=== PATIENT | female | born 1945 | race Caucasian/White ===

== ENCOUNTER → 2019-08-17 | Outpatient (CLI) | payer MEDICARE, OTHER ==
[~2019-08-17] MED LIST: INFLIXIMAB-DYYB 400 MG in SODIUM CHLORIDE 0.9% 250 ML IV NR; SODIUM CHLORIDE 0.9% 500 ML 500 ML in EMPTY BAG 1 BAG IV PRN
[2019-08-17 08:03] VITALS: RESP 16; TEMP 98.4
[2019-08-17 09:33] VITALS: BP 120/65; PULSE 67
== END | disposition home or self-care (01) ==
LOC: PROCWHC3 07:42
PROVIDERS: ATTEND Internal Medicine Gastroenterology
DX: K51.90 Ulcerative colitis, unspecified, without complications (principal)
CPT/HCPCS: 96413; 96415; Q5103

== ENCOUNTER 2019-10-18 17:48 | Inpatient (IN) | payer MEDICARE, OTHER ==
[~2019-10-18 17:48] MED LIST changes: -INFLIXIMAB-DYYB 400 MG in SODIUM CHLORIDE 0.9% 250 ML IV NR; +LACTATED RINGERS 1,000 ML IV ONE; -SODIUM CHLORIDE 0.9% 500 ML 500 ML in EMPTY BAG 1 BAG IV PRN
[2019-10-18] MEDS ORDERED: MORPHINE SULFATE 4 MG/ML SYRINGE IV STA (18:08)
--- NOTE | 2019-10-18 18:10 | ED ---
General Adult HPI - General Chief complaint: Abdominal Pain Stated complaint: Abd Pain Time Seen by Provider: 10/18/19 17:50 Source: EMS Mode of arrival: EMS Limitations: no limitations - History of Present Illness Initial comments: Dictation was produced using [employer] dictation software. please excuse any grammatical, word or spelling errors. This patient was cared for during a federal and state declared state of emergency secondary to Covid 19 Chief Complaint: 73-year-old female with past medical history of colitis basal cell carcinoma presents with left lower quadrant abdominal pain 4 hours History of Present Illness: [id number] female since about 2 PM today she developed worsening left lower quadrant abdominal pain she does complain of chills. Denies any fevers. Denies nausea without vomiting. No diarrhea. She localizes the pain to the left lower quadrant with radiation to the back. The ROS documented in this emergency department record has been reviewed and confirmed by me. Those systems with pertinent positive or negative responses have been documented in the HPI. All other systems are other negative and/or noncontributory. PHYSICAL EXAM: General Impression: Alert and oriented x3, acute distress secondary to pain HEENT: Normocephalic atraumatic, extra-ocular movements intact, pupils equal and reactive to light bilaterally, mucous membranes moist. Cardiovascular: Heart regular rate and rhythm Chest: Able to complete full sentences, no retractions, no tachypnea Abdomen: abdomen soft, tenderness to palpation to the left lower quadrant non- distended, no organomegaly Musculoskeletal: Pulses present and equal in all extremities, no peripheral edema Motor: no focal deficits noted Neurological: CN II-XII grossly intact, no focal motor or sensory deficits noted Skin: Intact with no visualized rashes Psych: Normal affect and mood ED course: 73-year-old female presents with left lower quadrant abdominal pain 4 hours. She reports the pain is severe. Abdomen evaluation obtained. No leukocytosis. CBC is unremarkable. Metabolic panel is within acceptable limits.As upon arrival are within acceptable limits. There is concern of diverticulitis. Computed tomography scan of the abdomen is and pelvis shows free intraperitoneal air. Discussed patient case with Dr. Matute who is rita ling to accept patients care for admission. Patient started on Zosyn. EKG interpretation: Ventricular rate 72, normal sinus rhythm, IA interval 134, QRS 106, QTC 400. No IA prolongation, no QTC prolongation, ST depressions in V4 to V6. No old EKG for comparison Overall, this EKG is nonspecific - Related Data Home Medications Medication Instructions Recorded Confirmed Anastrozole [Arimidex] 1 mg PO DAILY 08/17/19 10/18/19 Celecoxib [CeleBREX] 200 mg PO DAILY 08/17/19 10/18/19 Dicyclomine [Bentyl] 20 mg PO QID PRN 08/17/19 10/18/19 Folic Acid 1 mg PO DAILY 08/17/19 10/18/19 Gabapentin [Neurontin] 100 mg PO DAILY 08/17/19 10/18/19 Temazepam [Restoril] 15 - 30 mg PO HS PRN 08/17/19 10/18/19 Acetaminophen Tab [Tylenol Tab] 1,000 mg PO Q8H PRN 10/18/19 10/18/19 Aspirin EC [Ecotrin Low Dose] 81 mg PO BID 10/18/19 10/18/19 Cholecalciferol [Vitamin D3 (25 2,000 unit PO DAILY 10/18/19 10/18/19 Mcg = 1000 Iu)] Cyanocobalamin [Vitamin B-12] 500 mcg PO DAILY 10/18/19 10/18/19 Ferrous Sulfate [Feosol] 325 mg PO DAILY 10/18/19 10/18/19 Ibuprofen [Motrin] 600 mg PO Q8HR PRN 10/18/19 10/18/19 Latanoprost/Pf [Latanoprost 0.005% 1 drop BOTH EYES HS 10/18/19 10/18/19 Eye Drop] Levothyroxine Sodium 125 mcg PO DAILY 10/18/19 10/18/19 Magnesium Oxide [Reyna] 500 mg PO DAILY 10/18/19 10/18/19 Potassium Gluconate 99 mg PO DAILY 10/18/19 10/18/19 Zinc 50 mg PO DAILY 10/18/19 10/18/19 azaTHIOprine [Imuran] 50 mg PO DAILY 10/18/19 10/18/19 oxyCODONE HCL [oxyCODONE HCL (IR)] 10 mg PO Q4H PRN 10/18/19 10/18/19 Allergies Allergy/AdvReac Type Severity Reaction Status Date / Time vancomycin Allergy Rash/Hives Verified 10/18/19 18:27 Review of Systems ROS Statement: Those systems with pertinent positive or pertinent negative responses have been documented in the HPI. ROS Other: All systems not noted in ROS Statement are negative. Past Medical History Past Medical History: Cancer Additional Past Medical History / Comment(s): Basal Cell Carcinoma (left side chest), Squamous Cell CA (right side of chest). Skin CA on nose, left shoulder left side of head and right shoulder. Bladder suspension. colitis, breast CA, History of Any Multi-Drug Resistant Organisms: None Reported Past Surgical History: Cholecystectomy, Orthopedic Surgery Past Psychological History: No Psychological Hx Reported Smoking Status: Former smoker Past Alcohol Use History: Occasional Past Drug Use History: None Reported General Exam Limitations: no limitations Course Vital Signs 10/18/19 10/18/19 17:53 18:56 Temperature 99.8 F H Pulse Rate 74 71 Respiratory 16 16 Rate Blood Pressure 120/85 127/67 O2 Sat by Pulse 97 96 Oximetry Medical Decision Making - Lab Data Result diagrams: 10/18/19 18:50 10/18/19 18:50 Lab Results 10/18/19 10/18/19 Range/Units 18:50 18:50 WBC 8.3 (3.8-10.6) k/uL RBC 3.88 (3.80-5.40) m/uL Hgb 12.5 (11.4-16.0) gm/dL Hct 39.0 (34.0-46.0) % MCV 100.5 H (80.0-100.0) fL MCH 32.1 (25.0-35.0) pg MCHC 31.9 (31.0-37.0) g/dL RDW 13.5 (11.5-15.5) % Plt Count 178 (150-450) k/uL Neutrophils % 93 % Lymphocytes % 2 % Monocytes % 3 % Eosinophils % 2 % Basophils % 0 % Neutrophils # 7.7 (1.3-7.7) k/uL Lymphocytes # 0.2 L (1.0-4.8) k/uL Monocytes # 0.2 (0-1.0) k/uL Eosinophils # 0.2 (0-0.7) k/uL Basophils # 0.0 (0-0.2) k/uL Sodium 135 L (137-145) mmol/L Potassium 4.0 (3.5-5.1) mmol/L Chloride 106 (98-107) mmol/L Carbon Dioxide 25 (22-30) mmol/L Anion Gap 4 mmol/L BUN 16 (7-17) mg/dL Creatinine 0.55 (0.52-1.04) mg/dL Est GFR (CKD-EPI)AfAm >90 (>60 ml/min/1.73 sqM) Est GFR (CKD-EPI)NonAf >90 (>60 ml/min/1.73 sqM) Glucose 104 H (74-99) mg/dL Calcium 8.4 (8.4-10.2) mg/dL Total Bilirubin 1.2 (0.2-1.3) mg/dL AST 75 H (14-36) U/L ALT 25 (4-34) U/L Alkaline Phosphatase 76 (38-126) U/L Total Protein 6.2 L (6.3-8.2) g/dL Albumin 3.5 (3.5-5.0) g/dL Lipase 45 (23-300) U/L Disposition Clinical Impression: Pneumoperitoneum Disposition: ADMITTED IP TO THIS HOSP Condition: Critical Is patient prescribed a controlled substance at d/c from ED?: No Referrals: Aliya Bal DO [Primary Care Provider] - 1-2 days Decision Time: 20:07
[2019-10-18 19:04] LABS: Basophils % (A) 0 %; Eosinophils # (A) 0.2 k/uL (0-0.7); Eosinophils % (A) 2 %; HGB 12.5 gm/dL (11.4-16.0); Lymphocytes # (A) 0.2 k/uL (1.0-4.8); Lymphocytes % (A) 2 %; MCH 32.1 pg (25.0-35.0); MCHC 31.9 g/dL (31.0-37.0); MCV 100.5 fL (80.0-100.0); Monocytes # (A) 0.2 k/uL (0-1.0); Monocytes % (A) 3 %; Neutrophils # (A) 7.7 k/uL (1.3-7.7); Neutrophils % (A) 93 %; Platelet Count 178 k/uL (150-450); RBC 3.88 m/uL (3.80-5.40); RDW 13.5 % (11.5-15.5); WBC 8.3 k/uL (3.8-10.6)
[2019-10-18 19:12] LABS: ALT 25 U/L (4-34); AST 75 U/L (14-36); African American GFR (CKD) >90 (>60 ml/min/1.73 sqM); Albumin 3.5 g/dL (3.5-5.0); Alkaline Phosphatase 76 U/L (38-126); Anion Gap 4 mmol/L; Blood Urea Nitrogen 16 mg/dL (7-17); Calcium 8.4 mg/dL (8.4-10.2); Carbon Dioxide 25 mmol/L (22-30); Chloride 106 mmol/L (98-107); Glucose 104 mg/dL (74-99); Non-African American GFR(CKD) >90 (>60 ml/min/1.73 sqM); Sodium 135 mmol/L (137-145); Total Bilirubin 1.2 mg/dL (0.2-1.3); Total Protein 6.2 g/dL (6.3-8.2)
[2019-10-18] MEDS ORDERED: ONDANSETRON 4 MG/2 ML VIAL IVP PRN (19:59)
[2019-10-18] MEDS ORDERED: HYDROmorphone 1 MG/ML 1 ML SYRINGE IVP STA (19:59)
[2019-10-18] MEDS ORDERED: PIPERACILLIN-TAZOBACTAM 3.375 GM in SODIUM CHLORIDE 0.9% 100 ML IVPB STA (19:59)
[2019-10-18] MEDS ORDERED: NALOXONE 0.4 MG/ML 1 ML VIAL IV PRN (19:59)
--- NOTE | 2019-10-18 20:01 | CT ---
EXAMINATION TYPE: CT abdomen pelvis w con DATE OF EXAM: 10/18/2019 COMPARISON: None HISTORY: abdominal/flank pain CT DLP: 1426.7 mGycm Automated exposure control for dose reduction was used. CONTRAST: Performed with IV Contrast, patient injected with 100 mL of Isovue 300. There is minimal subsegmental atelectasis at the lung bases. Heart is slightly enlarged. There is no pericardial effusion. There is no pleural effusion. There is moderate pneumoperitoneum with air anter ior to the liver. Stomach is intact. There are clips from cholecystectomy. There are bubbles around t he spleen. Spleen is intact. There is no pancreatic mass. There is no adrenal mass. Kidneys have normal size. There is no hydronephrosis. Ureters are not dilat ed. There is no retroperitoneal adenopathy. Abdominal aorta is atheromatous. There is free air around the sigmoid colon. There are multiple sigmoid diverticula. Bladder distends smoothly. There is no fr ee fluid in the pelvis. There is no inguinal hernia. There is metal artifact from bilateral hip prost hesis. The bony pelvis is intact. Lumbar spine is intact. There is multilevel lumbar spondylotic torres ges. There is retained fecal material in the large bowel. There is no evidence of thickened appendix. Appe ndix not seen with certainty. IMPRESSION: Large pneumoperitoneum. There is more air collection seen around the sigmoid colon. This could relate to ruptured diverticulum. I see no fat stranding to suggest diverticulitis. There are numerous sigmo id diverticula. Appendix not seen. No sign of thickened appendix. Minimal subsegmental atelectasis at the right lung base. Exam was discussed with Dr. Jett at 8:00 PM.
[2019-10-18] MEDS: SODIUM CHLORIDE 0.9% 1,000 ML IV SCH (21:03)
--- NOTE | 2019-10-18 21:48 | P.GSHP ---
History of Present Illness H&P Date: 10/18/19 CHIEF COMPLAINT: Pneumoperitoneum HISTORY OF PRESENT ILLNESS: The patient is a 73 year old female who recently underwent uneventful partial knee arthroplasty less than 5 days ago who developed acute onset abdominal pain generalized at 2 PM today, 7 hours ago. Her last meal was 12 noon, 10 hours ago. She denies any previous events. She is pre-existing history of ulcerative colitis where most of her medical care is outside of the [facility] system. Her last colonoscopy was 2 years ago for which she is due for her next colonoscopy 2 weeks from now. She denies any pre- existing cardiac disease such as chest pain or coronary artery disease requiring angioplasty. No recent reports of dyspnea or COPD. Secondary to severity of her abdominal pain, she presented to the emergency room. CT of the abdomen and pelvis is consistent with pneumoperitoneum hence for admission. PAST MEDICAL HISTORY: See list and reviewed for ulcerative colitis PAST SURGICAL HISTORY: See list and reviewed for cholecystectomy multiple colonoscopies MEDICATIONS: See list and reviewed includes Imuran ALLERGIES: See list and reviewed SOCIAL HISTORY: See list and reviewed FAMILY HISTORY: See list and reviewed REVIEW OF ORGAN SYSTEMS: CONSTITUTIONAL: No fevers or chills. EYES: Wears glasses. Has glaucoma. HEENT: No difficulties with hearing. No nosebleeds. No difficulty swallowing. RESPIRATORY: Denies pneumonia. Denies any troubles with breathing or dyspnea on exertion. CARDIOVASCULAR: Denies any chest pain, palpitations, or recent heart attacks. GASTROINTESTINAL: Denies fatty food intolerance. Has change in bowel habits and gas bloat. Has ulcerative colitis. GENITOURINARY: Denies any blood in urine or increased urinary frequency. NEUROLOGICAL: Has numbness or tingling along the distal extremities. No seizure disorders or headaches. Has chronic pain. MUSCULOSKELETAL: Intermittent back pain, stiffness or joint arthritis. Recent partial arthroplasty of the knee SKIN: Past skin cancer. PSYCHIATRIC: Denies current depression or suicidal thoughts. ENDOCRINE: Has thyroid disorders. Denies any blood sugar glucose intolerance. HEME/LYMPHATIC: Denies any lumps and bumps around the neck. No recent deep venous thrombosis. ALLERGY/IMMUNOLOGY: No immunoglobulin therapy. No immune deficiencies. Currently on Imuran. BREAST: History of breast cancer PHYSICAL EXAM: VITALS: Reviewed CONSTITUTIONAL: Well developed and in no acute distress. EYES: Conjuctivae without sclera icterus. Pupils are equally round and reactive to light. Extraocular movements grossly intact. HEAD, EARS, NOSE, THROAT: Moist buccal mucosa. Head is atraumatic, normocephalic. Hears conversational speech. No nasal drainage. NECK: Supple. No JV distention. No thyroidomegaly. RESPIRATORY: Non-labored respirations and equal bilateral excursions. No gross wheezes. CARDIOVASCULAR: Palpable 2+ radial pulses. ABDOMEN: Soft. Diffusely tender without guarding or rigidity. MUSCULOSKELETAL: Nail and fingers with good capillary refill. SKIN: Warm and well perfused with good skin turgor. NEUROLOGIC: Cranial nerves II through XII grossly intact. Sensation upper and extremities intact. No focal or lateralizing signs. PSYCH: Appropriate affect. Alert and oriented to person, place and time. D isplays appropriate insight. CLINCAL LABS: Reviewed. WBC normal 8.3 with 93% neutrophils. Creatinine 0.55, normal. AST elevated 75 IMAGING: Independently reviewed CT of the abdomen pelvis with diffuse free air throughout the upper abdomen and mesentery of the colon. Features of diverticulosis identified of the sigmoid colon. This is my independent interpretation RADIOLOGY: Report reviewed the CT of the abdomen and pelvis confirms large pneumoperitoneum and sigmoid colon without evidence of diverticulitis EKG: Reviewed with questionable lateral wall ischemia ASSESSMENT: 1. Pneumoperitoneum for perforated large bowel, diverticulosis. 2. Present on admission ulcerative colitis 3. Chronic pain syndrome 4. History of skin cancer breast cancer 5. Status post recent partial knee arthroplasty 6. Pre-existing immunosuppression PLAN: 1. On exam, she has diffuse abdominal tenderness with perforated viscus, exploratory laparotomy with descending colostomy creation was reviewed. She is at elevated risk for complications due to emergency surgery and pre-existing ulcerative colitis. Placement of drains also described. Recovery the intensive care unit was described. Anticipated hospitalization beyond 7-10 days also reviewed. 2. Broad-spectrum antibiotics 3. DVT prophylaxis 4. Pulmonary toilet 5. Patient also at elevated risk for cardiac morbidity with recent general anesthetic within 5 days of recent arthroplasty Past Medical History Past Medical History: Cancer Additional Past Medical History / Comment(s): Basal Cell Carcinoma (left side chest), Squamous Cell CA (right side of chest). Skin CA on nose, left shoulder left side of head and right shoulder. Bladder suspension. colitis, breast CA, History of Any Multi-Drug Resistant Organisms: None Reported Past Surgical History: Cholecystectomy, Orthopedic Surgery Past Psychological History: No Psychological Hx Reported Smoking Status: Former smoker Past Alcohol Use History: Occasional Past Drug Use History: None Reported Medications and Allergies Home Medications Medication Instructions Recorded Confirmed Type Anastrozole [Arimidex] 1 mg PO DAILY 08/17/19 10/18/19 History Celecoxib [CeleBREX] 200 mg PO DAILY 08/17/19 10/18/19 History Dicyclomine [Bentyl] 20 mg PO QID PRN 08/17/19 10/18/19 History Folic Acid 1 mg PO DAILY 08/17/19 10/18/19 History Gabapentin [Neurontin] 100 mg PO DAILY 08/17/19 10/18/19 History Temazepam [Restoril] 15 - 30 mg PO HS PRN 08/17/19 10/18/19 History Acetaminophen Tab [Tylenol Tab] 1,000 mg PO Q8H PRN 10/18/19 10/18/19 History Aspirin EC [Ecotrin Low Dose] 81 mg PO BID 10/18/19 10/18/19 History Cholecalciferol [Vitamin D3 (25 2,000 unit PO DAILY 10/18/19 10/18/19 History Mcg = 1000 Iu)] Cyanocobalamin [Vitamin B-12] 500 mcg PO DAILY 10/18/19 10/18/19 History Ferrous Sulfate [Feosol] 325 mg PO DAILY 10/18/19 10/18/19 History Ibuprofen [Motrin] 600 mg PO Q8HR PRN 10/18/19 10/18/19 History Latanoprost/Pf [Latanoprost 0.005% 1 drop BOTH EYES HS 10/18/19 10/18/19 History Eye Drop] Levothyroxine Sodium 125 mcg PO DAILY 10/18/19 10/18/19 History Magnesium Oxide [Reyna] 500 mg PO DAILY 10/18/19 10/18/19 History Potassium Gluconate 99 mg PO DAILY 10/18/19 10/18/19 History Zinc 50 mg PO DAILY 10/18/19 10/18/19 History azaTHIOprine [Imuran] 50 mg PO DAILY 10/18/19 10/18/19 History oxyCODONE HCL [oxyCODONE HCL (IR)] 10 mg PO Q4H PRN 10/18/19 10/18/19 History Allergies Allergy/AdvReac Type Severity Reaction Status Date / Time vancomycin Allergy Rash/Hives Verified 10/18/19 18:27 Surgical - Exam Vital Signs Temp Pulse Resp BP Pulse Ox 99.8 F H 74 16 120/85 97 10/18/19 17:53 10/18/19 17:53 10/18/19 17:53 10/18/19 17:53 10/18/19 17:53 Results - Labs 10/18/19 18:50 10/18/19 18:50 Abnormal Lab Results - Last 24 Hours (Table) 10/18/19 10/18/19 Range/Units 18:50 18:50 MCV 100.5 H (80.0-100.0) fL Lymphocytes # 0.2 L (1.0-4.8) k/uL Sodium 135 L (137-145) mmol/L Glucose 104 H (74-99) mg/dL AST 75 H (14-36) U/L Total Protein 6.2 L (6.3-8.2) g/dL Diabetes panel 10/18/19 Range/Units 18:50 Sodium 135 L (137-145) mmol/L Potassium 4.0 (3.5-5.1) mmol/L Chloride 106 (98-107) mmol/L Carbon Dioxide 25 (22-30) mmol/L BUN 16 (7-17) mg/dL Creatinine 0.55 (0.52-1.04) mg/dL Glucose 104 H (74-99) mg/dL Calcium 8.4 (8.4-10.2) mg/dL AST 75 H (14-36) U/L ALT 25 (4-34) U/L Alkaline Phosphatase 76 (38-126) U/L Total Protein 6.2 L (6.3-8.2) g/dL Albumin 3.5 (3.5-5.0) g/dL Calcium panel 10/18/19 Range/Units 18:50 Calcium 8.4 (8.4-10.2) mg/dL Albumin 3.5 (3.5-5.0) g/dL Pituitary panel 10/18/19 Range/Units 18:50 Sodium 135 L (137-145) mmol/L Potassium 4.0 (3.5-5.1) mmol/L Chloride 106 (98-107) mmol/L Carbon Dioxide 25 (22-30) mmol/L BUN 16 (7-17) mg/dL Creatinine 0.55 (0.52-1.04) mg/dL Glucose 104 H (74-99) mg/dL Calcium 8.4 (8.4-10.2) mg/dL Adrenal panel 10/18/19 Range/Units 18:50 Sodium 135 L (137-145) mmol/L Potassium 4.0 (3.5-5.1) mmol/L Chloride 106 (98-107) mmol/L Carbon Dioxide 25 (22-30) mmol/L BUN 16 (7-17) mg/dL Creatinine 0.55 (0.52-1.04) mg/dL Glucose 104 H (74-99) mg/dL Calcium 8.4 (8.4-10.2) mg/dL Total Bilirubin 1.2 (0.2-1.3) mg/dL AST 75 H (14-36) U/L ALT 25 (4-34) U/L Alkaline Phosphatase 76 (38-126) U/L Total Protein 6.2 L (6.3-8.2) g/dL Albumin 3.5 (3.5-5.0) g/dL Assessment and Plan (1) Ulcerative colitis Current Visit: Yes Status: Acute Code(s): K51.90 - ULCERATIVE COLITIS, UNSPECIFIED, WITHOUT COMPLICATIONS SNOMED Code(s): 43906418 (2) History of breast cancer Current Visit: Yes Status: Acute Code(s): Z85.3 - PERSONAL HISTORY OF MALIGNANT NEOPLASM OF BREAST SNOMED Code(s): 130888417 (3) History of skin cancer Current Visit: Yes Status: Acute Code(s): Z85.828 - PERSONAL HISTORY OF OTHER MALIGNANT NEOPLASM OF SKIN SNOMED Code(s): 335759443 (4) Hypothyroidism Current Visit: Yes Status: Acute Code(s): E03.9 - HYPOTHYROIDISM, UNSPECIFIED SNOMED Code(s): 70616722 (5) Abnormal EKG Current Visit: Yes Status: Acute Code(s): R94.31 - ABNORMAL ELECTROCARD IOGRAM [ECG] [EKG] SNOMED Code(s): 616609146 (6) Sigmoid diverticulosis Current Visit: Yes Status: Acute Code(s): K57.30 - DVRTCLOS OF LG INT W/O PERFORATION OR ABSCESS W/O BLEEDING SNOMED Code(s): 069348767 (7) Chronic pain syndrome Current Visit: Yes Status: Acute Code(s): G89.4 - CHRONIC PAIN SYNDROME SNOMED Code(s): 301742766 (8) Pneumoperitoneum Current Visit: Yes Status: Acute Code(s): K66.8 - OTHER SPECIFIED DISORDERS OF PERITONEUM SNOMED Code(s): 57627219
[2019-10-18] MEDS ORDERED: SODIUM CHLORIDE 0.9% 1,000 ML IV ONE ×2 (21:49→22:21)
[2019-10-18] MEDS ORDERED: HEPARIN SODIUM,PORCINE 5,000 UNIT/ML 1 ML VIAL SQ STA (21:51)
[2019-10-18] MEDS ORDERED: ACETAMINOPHEN IV (For NPO) 1,000 MG in EMPTY BAG 1 BAG IVPB ONE (22:00)
[2019-10-18] MEDS ORDERED: ROCURONIUM BROMIDE 10 MG/ML 5 ML VIAL IV ONE (22:22)
[2019-10-18] MEDS ORDERED: GLYCOPYRROLATE 0.2 MG/ML 2 ML VIAL ONE (22:22)
[2019-10-18] MEDS ORDERED: MIDAZOLAM 2 MG/2 ML VIAL ONE (22:22)
[2019-10-18] MEDS ORDERED: SUCCINYLCHOLINE CHLORIDE 100 MG/5 ML SYR IV ONE (22:22)
[2019-10-18] MEDS ORDERED: fentaNYL (PF) 50 MCG/ML 2 ML AMP ONE (22:22)
[2019-10-18] MEDS ORDERED: PROPOFOL 10 MG/ML 20 ML VIAL IV ONE (22:22)
[2019-10-18] MEDS ORDERED: PHENYLEPHRINE-0.9% NACL SYG 1 MG/10 ML SYRINGE ONE (22:22)
[2019-10-18] MEDS ORDERED: HYDROmorphone (PF) 1 MG/ML ONE (22:22)
[2019-10-18] MEDS ORDERED: NEOSTIGMINE 1 MG/ML 10 ML VIAL ONE (22:22)
[2019-10-18] MEDS ORDERED: LACTATED RINGERS 1,000 ML IV ONE (23:31)
[2019-10-19] MEDS: HYDROmorphone 1 MG/ML 1 ML SYRINGE IVP ONE ×4 (00:58→01:24)
--- NOTE | 2019-10-19 01:40 | P.OP ---
Date of Procedure: 10/19/19 Description of Procedure: SURGEON: SAMMIE YOUSIF MD PREOPERATIVE DIAGNOSES: 1. Pneumoperitoneum for perforated large bowel, diverticulosis 2. Present on admission ulcerative colitis 3. Chronic pain syndrome 4. History of skin cancer breast cancer 5. Status post recent partial knee arthroplasty 6. Pre-existing immunosuppression POSTOPERATIVE DIAGNOSES: 1. Perforated sigmoid diverticulitis 2. Present on admission ulcerative colitis 3. Chronic pain syndrome 4. History of skin cancer breast cancer 5. Status post recent partial knee arthroplasty 6. Pre-existing immunosuppression OPERATION: 1. Exploratory laparotomy with sigmoid resection 2. Descending colostomy creation 3. Devitalized rectal stump creation 4. Nancy's procedure for perforated sigmoid colon 5. Peritoneal lavage for abdominal washout 3 L normal saline 6. Placement of incisional wound VAC system PREVENA, Simms system Anesthesia: GETA Estimated Blood Loss (ml): 50 Pathology: other (Sigmoid colon) Condition: stable Disposition: floor COMPLICATIONS: None. Operative Findings: 1. Perforated mid sigmoid colon, 1 cm perforation 2. Highly redundant sigmoid colon 3. Mid to distal sigmoid colon resected 4. Rectal stump tacked with 3-0 Prolene INDICATIONS: The patient is a 73-year-old female with pre-existing ulcerative colitis, immunosuppression, recent knee arthroplasty less than 5 days ago presents acutely with peritonitis, abdominal pain. CT of the abdomen and pelvis confirmed free air. Emergent surgical intervention was described. All questions were answered and risks were reviewed with the patient and at bedside including but not limited to colostomy creation, colectomy, postoperative management intensive care unit, ventilatory management, drain placement, need for additional surgery, bleeding, infection, cardiac events. Informed consent was obtained. DESCRIPTION: Patient was brought to the operating room and placed in supine position whereby general induction was performed. Abdomen had been prepped and draped in the standard sterile fashion with placement of Banegas catheter. Ioban draping was also placed to minimize any contamination to the skin. Next, using #10 blade, the abdomen was entered along the midline whereby an incision was made just above the umbilicus down to the pubis. The abdomen was inspected whereby the small bowel was unremarkable. The mesentery was also unremarkable. Diverticulosis of the sigmoid colon was identified. The liver surface was palpated and unremarkable. No peritoneal studding was identified. Next, a buckwalter retractor was placed with exposure of the pelvis. The descending colon and sigmoid colon were mobilized along the medial and lateral attachments with care to avoid any injury to the ureters along the usual anatomical landmarks. Carefully the sigmoid colon was identified and mobilized. The sigmoid colon was moderately redundant with a contained perforation mid sigmoid colon, 1 cm perforation. The sigmoid colon was mobilized along the mesentery and the colon was divided for descending colon and maturation of a colostomy. Next, the rest of the colon was mobilized down to the rectum. The colon was divided just proximal using Covidien Endo BECKIE black lani and a contour stapler. The specimen was passed off. Hemostasis was checked with electro Bovie cautery including Enseal. The rectal stump was tagged using 3-0 Prolene. Next, attention was brought to the delivering and creating of the descending colostomy. A point along the abdominal wall and rectus muscle was selected for the colostomy. Skin defect of approximately quarter-size was placed using cautery. The fat of the skin was mobilized using a small rich. The rectus muscle was identified and scored with a cruciate scoring of electro- Bovie cautery. Next, using a muscle-splitting technique with a hemostat, the peritoneum was entered. The peritoneum was widened such that 2 fingerbreadths could easily pass for delivering and evaginating the descending portion of the colon through the skin. The abdominal cavity was copiously irrigated until completely clear and dried. The midline incision was closed using double-stranded 0 PDS. For the skin incision, the skin was cleansed with dilute hydrogen peroxide and stainless steel skin lani were applied. The midline incision was covered using PREVENA wound VAC and attention was brought to maturation of the colostomy. The staple edge was divided and removed. Next quadrant sutures at 12 o'clock, 3 o'clock, 6 o'clock, and 9 o'clock position was made using serosa, mucosal and dermal bites using 2-0 Vicryl. Running 3-0 Vicryl was placed in between all quadrants sutures to completely mature the ostomy. Hemostasis was checked. A Coloplast was then placed. At the end of the procedure, needle, sponge, and instrument count had been verified correct by network support technician. The patient's family was updated on level of care.
[2019-10-19] MEDS ORDERED: METOCLOPRAMIDE 5 MG/ML 2 ML VIAL IVP PRN (02:00)
[2019-10-19] MEDS: KETOROLAC 15 MG/ML 1 ML VIAL IVP SCH ×5 (02:27→23:08)
[2019-10-19 02:46] LABS: Appearance,Urine Clear (Clear); Bacteria,Urine Rare /hpf; Bilirubin,Urine Negative (Negative); Blood,Urine Moderate (Negative); Color,Urine Yellow; Glucose,Urine (UA) Negative (Negative); Ketones,Urine Negative (Negative); Leukocyte Esterase,Urine Trace (Negative); Mucus,Urine Rare /hpf; Nitrite,Urine Negative (Negative); PH, Urine 5.5 (5.0-8.0); Protein,Urine Trace (Negative); RBC,Urine 42 /hpf (0-5); Urobilinogen,Urine <2.0 mg/dL (<2.0); WBC,Urine 6 /hpf (0-5)
[2019-10-19 02:56] LABS: Specific Gravity,Urine >1.050 (1.001-1.035)
[2019-10-19] MEDS: PIPERACILLIN-TAZOBACTAM 3.375 GM in SODIUM CHLORIDE 0.9% 100 ML IVPB SCH ×3 (05:13→20:16)
[2019-10-19] MEDS: SODIUM CHLORIDE 0.9% 1,000 ML IV SCH ×2 (05:14→15:11)
[2019-10-19] MEDS: ENOXAPARIN 30 MG/0.3 ML SYRINGE SQ SCH (08:11)
[2019-10-19] MEDS: PANTOPRAZOLE 40 MG/10 ML VIAL IV SCH (08:11)
[2019-10-19] MEDS: HYDROmorphone 1 MG/ML 1 ML SYRINGE IVP PRN ×3 (08:40→21:08)
[2019-10-19] MEDS: ANASTROZOLE 1 MG TAB PO SCH (12:29)
[2019-10-19] MEDS: LEVOTHYROXINE 125 MCG TAB PO SCH (12:30)
--- NOTE | 2019-10-19 14:10 | P.PN ---
<Jazmyne Menon - Last Filed: 10/19/19 14:02> Subjective Progress Note Date: 10/19/19 CHIEF COMPLAINT: Pneumoperitoneum HISTORY OF PRESENT ILLNESS: he patient is a 73 year old female who recently underwent uneventful partial knee arthroplasty less than 5 days ago who developed acute onset abdominal pain. CT of the abdomen and pelvis is consistent with pneumoperitoneum. Patient is status post Exploratory laparotomy with descending colostomy creation, sigmoid colectomy, the flat lens rectum, Fermin's procedure. Abdominal washout 3 L normal saline and Placement of incisional wound VAC system for perforated sigmoid diverticulitis. Patient sitting up in bed. Denies abdominal pain. Denies any nausea or vomiting. She had a temp of 100.2 last night. Now she is currently afebrile. PHYSICAL EXAM: VITAL SIGNS: Reviewed GENERAL: Well-developed in no acute distress. HEENT: No sclera icterus. Extraocular movements grossly intact. Moist buccal mucosa. Head is atraumatic, normocephalic. Hears conversational speech. No nasal drainage. NECK: Supple without lymphadenopathy. CHEST: Non-labored respirations and equal bilateral excursions. CARDIOVASCULAR: Regular rate with regular rhythm. Palpable 2+ radial pulses. ABDOMEN: Soft. Nondistended. Nontender. His colostomy bag MUSCULOSKELETAL: No clubbing or cyanosis. NEUROLOGIC: No focal or lateralizing signs. Cranial nerves II through XII grossly intact. PSYCH: Appropriate affect. Alert and oriented to person, place and time. SKIN: Well perfused. Good skin turgor. ASSESSMENT: 1. Perforated sigmoid diverticulitis status post Exploratory laparotomy with descending colostomy creation, sigmoid colectomy, the flat lens rectum, Fermin's procedure. Abdominal washout and Placement of incisional wound VAC system 2. Present on admission ulcerative colitis 3. Chronic pain syndrome 4. History of skin cancer breast cancer 5. Status post recent partial knee arthroplasty 6. Pre-existing immunosuppression PLAN: - Continue Broad-spectrum antibiotics - DVT prophylaxis - Pulmonary toilet -Consult PT OT -Patient will require home care at discharge Physician Lead Supply Worker note has been reviewed by physician. Signing provider agrees with the documented findings, assessment, and plan of care. Objective - Vital Signs Vital signs: Vital Signs Temp 98.6 F 10/19/19 07:00 Pulse 76 10/19/19 07:00 Resp 16 10/19/19 07:00 BP 101/64 09/03/20 07:00 Pulse Ox 92 L 10/19/19 07:00 Intake & Output 10/18/19 10/19/19 10/19/19 18:59 06:59 18:59 Intake Total 1500 100 Output Total 100 Balance 1400 100 Weight 87.543 kg 87.543 kg Intake: IV 1500 Other 100 Output: Urine 100 Other: Voiding Method Indwelling Catheter - Labs CBC & Chem 7: 10/18/19 18:50 10/18/19 18:50 Labs: Abnormal Lab Results - Last 24 Hours (Table) 10/18/19 10/18/19 10/19/19 Range/Units 18:50 18:50 02:33 MCV 100.5 H (80.0-100.0) fL Lymphocytes # 0.2 L (1.0-4.8) k/uL Sodium 135 L (137-145) mmol/L Glucose 104 H (74-99) mg/dL AST 75 H (14-36) U/L Total Protein 6.2 L (6.3-8.2) g/dL Ur Specific [place] >1.050 H (1.001-1.035) Urine Protein Trace H (Negative) Urine Blood Moderate H (Negative) Ur Leukocyte Esterase Trace H (Negative) Urine RBC 42 H (0-5) /hpf Urine WBC 6 H (0-5) /hpf Urine Bacteria Rare H (None) /hpf Urine Mucus Rare H (None) /hpf <Natalie Matute - Last Filed: 11/01/19 21:49> Subjective Patient seen and evaluated as above. Please see corrected report. CHIEF COMPLAINT: Perforated diverticulitis HISTORY OF PRESENT ILLNESS: The patient is a 73-year-old female status post Fermin's procedure for perforated sigmoid diverticulitis. She reports her pain is controlled. She is concerned about her recent knee arthroplasty and physical therapy requirements. She is tolerating liquids. ROS: No reports of nausea and vomiting. No bowel movements. No new chest pain. PHYSICAL EXAM: VITAL SIGNS: Reviewed CONSTITUTIONAL: Well developed and in no acute distress. EYES: Conjuctivae without sclera icterus. Extraocular movements grossly intact. HEAD, EARS, NOSE, THROAT: Moist buccal mucosa. Head is atraumatic, normocephalic. Hears conversational speech. No nasal drainage. NECK: Supple. No thyroidomegaly. RESPIRATORY: Non-labored respirations and equal bilateral excursions. CARDIOVASCULAR: Palpable 2+ radial pulses. ABDOMEN: Incisional wound VAC system intact. No cellulitis or infection. Left descending colostomy without flatus MUSCULOSKELETAL: No gross deformity of the lower extremities noted. Recent left knee arthroplasty. SKIN: Good skin turgor. Well perfused. NEUROLOGIC: Cranial nerves II through XII grossly intact. No focal or later alizing signs. PSYCH: Appropriate affect. Alert and oriented to person, place and time. CLINICAL LABS: WBC on admission 8.5, normal. ASSESSMENT: 1. Perforated sigmoid diverticulitis, status post Nancy's procedure PLAN: 1. Will need colostomy education for a descending colostomy 2. Physical therapy assessment for recent left knee arthroplasty 3. Continue IV antibiotics for complicated perforated diverticulitis Objective - Vital Signs Vital signs: Vital Signs Temp 98.2 F 10/30/19 14:47 Pulse 67 10/30/19 14:47 Resp 17 10/30/19 14:47 BP 115/70 10/30/19 14:47 Pulse Ox 99 10/30/19 14:47 - Labs CBC & Chem 7: 10/28/19 06:37 10/28/19 06:37 Labs: Microbiology - Last 24 Hours (Table) 10/25/19 11:43 Gram Stain - Final Abdomen Wound Culture - Final Escherichia coli Assessment and Plan (1) Ulcerative colitis Status: Acute Code(s): K51.90 - ULCERATIVE COLITIS, UNSPECIFIED, WITHOUT COMPLICATIONS SNOMED Code(s): 07216063 (2) History of breast cancer Status: Acute Code(s): Z85.3 - PERSONAL HISTORY OF MALIGNANT NEOPLASM OF BREAST SNOMED Code(s): 470367002 (3) History of skin cancer Status: Acute Code(s): Z85.828 - PERSONAL HISTORY OF OTHER MALIGNANT NEOPLASM OF SKIN SNOMED Code(s): 349154427 (4) Hypothyroidism Status: Acute Code(s): E03.9 - HYPOTHYROIDISM, UNSPECIFIED SNOMED Code(s): 36971883 (5) Abnormal EKG Status: Acute Code(s): R94.31 - ABNORMAL ELECTROCARDIOGRAM [ECG] [EKG] SNOMED Code(s): 505387976 (6) Sigmoid diverticulosis Status: Acute Code(s): K57.30 - DVRTCLOS OF LG INT W/O PERFORATION OR ABSCESS W/O BLEEDING SNOMED Code(s): 337066140 (7) Chronic pain syndrome Status: Acute Code(s): G89.4 - CHRONIC PAIN SYNDROME SNOMED Code(s): 412501324 (8) Pneumoperitoneum Status: Acute Code(s): K66.8 - OTHER SPECIFIED DISORDERS OF PERITONEUM SNOMED Code(s): 18925324 (9) Perforation of sigmoid colon due to diverticulitis Status: Acute Code(s): K57.20 - DVTRCLI OF LG INT W PERFORATION AND ABSCESS W/O BLEEDING SNOMED Code(s): 6829432854405984
[2019-10-19] MEDS: LATANOPROST 0.005% OPHTH DROPS 2.5 ML BTL BOTH EYES SCH (21:08)
--- NOTE | 2019-10-19 21:42 | P.CONS ---
History of Present Illness - Reason for Consult Consult date: 10/19/19 Medical management - Chief Complaint Abdominal pain - History of Present Illness Patient is a 73-year-old female with a known history of basal cell carcinoma of the skin, breast cancer, osteoarthritis and recent history of left total knee arthroplasty about 5 days ago,. History of smoking presents to ER with the complaints of left lower quadrant abdominal pain started around 2 PM yesterday. Patient's pain is mainly left lower quadrant and sometimes radiating to the back. Denied any complaints of nausea or vomiting. No diarrhea. He does have chills. No fever. No complaints of chest pain or shortness of breath. CT of the abdomen pelvis done in the ER showed large pneumoperitoneum. There is more air collections seen around the sigmoid colon. This could relate to ruptured diverticulum. No fat stranding to suggest diverticulitis. There are numerous sigmoid diverticula. Appendix not seen. Minimal subsegmental atelectasis at the left lung base. EKG showed normal sinus rhythm. Patient underwent immediate expiratory laparotomy with sigmoid colectomy and colostomy. Laboratory pressure WBC 8.3, hemoglobin 12.5 and platelets 93 Sodium 135, potassium 4.0, AST 75, ALT is 25 and alk phos 76 Total bilirubin is 1.2 Lipase is 45 Urinalysis showed moderate blood and 42 RBCs and WBCs 6 Review of Systems Constitutional: Patient denies any fever or chills . No generalized weakness or weight loss. Abdomen: Patient does have abdominal pain. No associated nausea vomiting or diarrhea. Cardiovascular: Patient denies any chest pain or short of breath no palpitations. Respiratory: patient denied any cough is from production. No shortness of breath Neurologic: Patient denied any numbness or tingling headache. Musculoskeletal: Patient denies any complaints of joint swelling or deformity. Skin: Negative Psychiatric: Negative Endocrine: No heat or cold intolerance. No recent weight gain. Genitourinary: No dysuria or hematuria. All other 14 point ROS negative except the above Past Medical History Past Medical History: Cancer Additional Past Medical History / Comment(s): Basal Cell Carcinoma (left side chest), Squamous Cell CA (right side of chest). Skin CA on nose, left shoulder left side of head and right shoulder. Bladder suspension. colitis, breast CA, History of Any Multi-Drug Resistant Organisms: None Reported Past Surgical History: Cholecystectomy, Orthopedic Surgery Past Anesthesia/Blood Transfusion Reactions: No Reported Reaction Past Psychological History: No Psychological Hx Reported Smoking Status: Former smoker Past Alcohol Use History: Occasional Additional Past Alcohol Use History / Comment(s): Patient states she is a social drinker. Past Drug Use History: None Reported - Past Family History Father History Unknown: Yes Medications and Allergies Home Medications Medication Instructions Recorded Confirmed Type Anastrozole [Arimidex] 1 mg PO DAILY 08/17/19 10/18/19 History Celecoxib [CeleBREX] 200 mg PO DAILY 08/17/19 10/18/19 History Dicyclomine [Bentyl] 20 mg PO QID PRN 08/17/19 10/18/19 History Folic Acid 1 mg PO DAILY 08/17/19 10/18/19 History Gabapentin [Neurontin] 100 mg PO DAILY 08/17/19 10/18/19 History Temazepam [Restoril] 15 - 30 mg PO HS PRN 08/17/19 10/18/19 History Acetaminophen Tab [Tylenol Tab] 1,000 mg PO Q8H PRN 10/18/19 10/18/19 History Aspirin EC [Ecotrin Low Dose] 81 mg PO BID 10/18/19 10/18/19 History Cholecalciferol [Vitamin D3 (25 2,000 unit PO DAILY 10/18/19 10/18/19 History Mcg = 1000 Iu)] Cyanocobalamin [Vitamin B-12] 500 mcg PO DAILY 10/18/19 10/18/19 History Ferrous Sulfate [Feosol] 325 mg PO DAILY 10/18/19 10/18/19 History Ibuprofen [Motrin] 600 mg PO Q8HR PRN 10/18/19 10/18/19 History Latanoprost/Pf [Latanoprost 0.005% 1 drop BOTH EYES HS 10/18/19 10/18/19 History Eye Drop] Levothyroxine Sodium 125 mcg PO DAILY 10/18/19 10/18/19 History Magnesium Oxide [Reyna] 500 mg PO DAILY 10/18/19 10/18/19 History Potassium Gluconate 99 mg PO DAILY 10/18/19 10/18/19 History Zinc 50 mg PO DAILY 10/18/19 10/18/19 History azaTHIOprine [Imuran] 50 mg PO DAILY 10/18/19 10/18/19 History oxyCODONE HCL [oxyCODONE HCL (IR)] 10 mg PO Q4H PRN 10/18/19 10/18/19 History Allergies Allergy/AdvReac Type Severity Reaction Status Date / Time vancomycin Allergy Rash/Hives Verified 10/18/19 18:27 Physical Exam Vitals: Vital Signs Temp Pulse Pulse Pulse Resp BP BP 10/19/19 07:00 98.6 F 76 16 101/64 10/19/19 03:58 69 107/68 10/19/19 03:44 76 115/59 10/19/19 03:42 74 10/19/19 03:29 18 10/19/19 03:14 81 109/57 10/19/19 02:58 69 102/56 10/19/19 02:43 73 109/60 10/19/19 02:28 79 112/63 10/19/19 02:13 75 106/67 10/19/19 02:10 98.7 F 83 18 122/75 10/19/19 01:58 98.7 F 83 122/73 10/19/19 01:37 84 16 138/62 10/19/19 01:22 85 18 156/70 10/19/19 01:07 86 18 152/68 10/19/19 00:52 98.0 F 99 18 163/75 10/18/19 21:48 100.2 F H 95 17 102/62 10/18/19 20:28 99.8 F H 80 16 112/80 10/18/19 18:56 71 16 127/67 10/18/19 17:53 99.8 F H 74 16 120/85 Pulse Ox 10/19/19 07:00 92 L 10/19/19 03:58 97 10/19/19 03:44 97 10/19/19 03:42 89 L 10/19/19 03:29 10/19/19 03:14 96 10/19/19 02:58 10/19/19 02:43 95 10/19/19 02:28 94 L 10/19/19 02:13 90 L 10/19/19 02:10 95 10/19/19 01:58 96 10/19/19 01:37 98 10/19/19 01:22 96 10/19/19 01:07 96 10/19/19 00:52 99 10/18/19 21:48 95 10/18/19 20:28 97 10/18/19 18:56 96 10/18/19 17:53 97 Intake and Output 10/18/19 10/19/19 10/19/19 22:59 06:59 14:59 Intake Total 700 800 Output Total 100 Balance 700 700 Intake: IV 700 800 Output: Urine 100 Other: Voiding Method Indwelling Catheter Weight 87.543 kg 87.543 kg PHYSICAL EXAMINATION: Patient is lying in the bed comfortably, no acute distress, awake alert and oriented.. HEENT: Normocephalic. Neck is supple. Pupils reactive. Nostrils clear. Oral cavity is moist. Ears reveal no drainage. Neck reveals no JVD, carotid bruits, or thyromegaly. CHEST EXAMINATION: Trachea is central. Symmetrical expansion. Lung maxwell clear to auscultation and percussion. CARDIAC: Normal S1, S2 with no gallops. No murmurs ABDOMEN: Soft. Bowel sounds diminished. Surgical site is bandaged with wound VAC and colostomy bag in place. No abdominal bruits. Extremities: reveal no edema. No clubbing or cyanosis Neurologically awake, alert, oriented x3 with well-coordinated movements. No focal deficits noted Skin: No rash or skin lesions. Psychiatric: Coperative. Nonsuicidal Musculoskeletal: No joint swelling or deformity. Normal range of motion.Left knee surgical site is intact. Results CBC & Chem 7: 10/18/19 18:50 10/18/19 18:50 Labs: Abnormal Lab Results - Last 24 Hours (Table) 10/18/19 10/18/19 10/19/19 Range/Units 18:50 18:50 02:33 MCV 100.5 H (80.0-100.0) fL Lymphocytes # 0.2 L (1.0-4.8) k/uL Sodium 135 L (137-145) mmol/L Glucose 104 H (74-99) mg/dL AST 75 H (14-36) U/L Total Protein 6.2 L (6.3-8.2) g/dL Ur Specific [place] >1.050 H (1.001-1.035) Urine Protein Trace H (Negative) Urine Blood Moderate H (Negative) Ur Leukocyte Esterase Trace H (Negative) Urine RBC 42 H (0-5) /hpf Urine WBC 6 H (0-5) /hpf Urine Bacteria Rare H (None) /hpf Urine Mucus Rare H (None) /hpf Assessment and Plan Assessment: Large pneumoperitoneum due to Acute perforated sigmoid diverticulitis. Status post exporter laparotomy and colectomy with colostomy bag placement. Postoperative day 1. Abdominal washout and incisional wound VAC system placement. Ulcerative colitis currently on Imuran therapy. Hypothyroidism Chronic pain History of breast cancer History of basal cell carcinoma of the skin Recent left knee arthroplasty Obesity with BMI 31.2 DVT prophylaxis Plan: Patient is status post expiratory laparotomy and is currently placed on colostomy bag. Continue with antibiotic in the form of Zosyn. followup cx reports, Wound VAC is in placed. Patient was started on liquid diet and advance as tolerated. Encourage incentive spirometry. PT OT was consulted. Will continue to follow with you. Further recommendations based on the clinical course. Thank you for your consult. Time with Patient: Greater than 30
[2019-10-20] MEDS: SODIUM CHLORIDE 0.9% 1,000 ML IV SCH ×2 (00:29→07:42)
[2019-10-20] MEDS: KETOROLAC 15 MG/ML 1 ML VIAL IVP SCH ×4 (05:36→23:02)
[2019-10-20] MEDS: PIPERACILLIN-TAZOBACTAM 3.375 GM in SODIUM CHLORIDE 0.9% 100 ML IVPB SCH ×3 (05:36→20:06)
[2019-10-20] MEDS: LEVOTHYROXINE 125 MCG TAB PO SCH (05:36)
[2019-10-20] MEDS: ENOXAPARIN 30 MG/0.3 ML SYRINGE SQ SCH (07:42)
[2019-10-20] MEDS: PANTOPRAZOLE 40 MG/10 ML VIAL IV SCH (07:42)
[2019-10-20] MEDS: ANASTROZOLE 1 MG TAB PO SCH (07:42)
[2019-10-20 08:44] LABS: Basophils % (A) 0 %; Eosinophils # (A) 0.4 k/uL (0-0.7); Eosinophils % (A) 3 %; HCT 37.9 % (34.0-46.0); HGB 12.2 gm/dL (11.4-16.0); Lymphocytes # (A) 0.5 k/uL (1.0-4.8); Lymphocytes % (A) 3 %; MCH 33.2 pg (25.0-35.0); MCHC 32.3 g/dL (31.0-37.0); MCV 102.8 fL (80.0-100.0); Macrocytosis Slight; Mean Platelet Volume 8.4; Monocytes # (A) 0.4 k/uL (0-1.0); Monocytes % (A) 2 %; Neutrophils # (A) 14.2 k/uL (1.3-7.7); Neutrophils % (A) 91 %; Platelet Count 190 k/uL (150-450); RBC 3.69 m/uL (3.80-5.40); RDW 13.5 % (11.5-15.5); WBC 15.7 k/uL (3.8-10.6)
[2019-10-20 08:51] LABS: ALT 58 U/L (4-34); AST 71 U/L (14-36); African American GFR (CKD) >90 (>60 ml/min/1.73 sqM); Albumin 2.9 g/dL (3.5-5.0); Alkaline Phosphatase 115 U/L (38-126); Anion Gap 7 mmol/L; Blood Urea Nitrogen 13 mg/dL (7-17); Calcium 8.4 mg/dL (8.4-10.2); Carbon Dioxide 24 mmol/L (22-30); Chloride 104 mmol/L (98-107); Glucose 101 mg/dL (74-99); Non-African American GFR(CKD) 89 (>60 ml/min/1.73 sqM); Potassium 3.2 mmol/L (3.5-5.1); Sodium 135 mmol/L (137-145); Total Protein 5.6 g/dL (6.3-8.2)
[2019-10-20] MEDS: HYDROmorphone 1 MG/ML 1 ML SYRINGE IVP PRN (09:20)
[2019-10-20 10:59] VITALS: BMI 31.1
[2019-10-20] MEDS: POTASSIUM CHLORIDE ER 20 MEQ TAB.ER PO SCH ×2 (16:06→17:22)
--- NOTE | 2019-10-20 16:09 | P.PN ---
<CorinneJazmyne richmond - Last Filed: 10/20/19 16:05> Subjective Progress Note Date: 10/20/19 CHIEF COMPLAINT: Pneumoperitoneum HISTORY OF PRESENT ILLNESS: he patient is a 73 year old female who recently underwent uneventful partial knee arthroplasty less than 5 days ago who developed acute onset abdominal pain. CT of the abdomen and pelvis is consistent with pneumoperitoneum. Patient is status post Exploratory laparotomy with descending colostomy creation, sigmoid colectomy, the flat lens rectum, Fermin's procedure. Abdominal washout 3 L normal saline and Placement of incisional wound VAC system for perforated sigmoid diverticulitis. Patient sitting in bedside chair. Denies abdominal pain. Denies any nausea or vomiting. No stool through her colostomy. She is tolerating clear liquid diet. She is afebrile. WBC 15.7 hemoglobin 12.2 platelets 190 potassium 3.2 PHYSICAL EXAM: VITAL SIGNS: Reviewed GENERAL: Well-developed in no acute distress. HEENT: No sclera icterus. Extraocular movements grossly intact. Moist buccal mucosa. Head is atraumatic, normocephalic. Hears conversational speech. No nasal drainage. NECK: Supple without lymphadenopathy. CHEST: Non-labored respirations and equal bilateral excursions. CARDIOVASCULAR: Regular rate with regular rhythm. Palpable 2+ radial pulses. ABDOMEN: Soft. Nondistended. Nontender. His colostomy bag MUSCULOSKELETAL: No clubbing or cyanosis. NEUROLOGIC: No focal or lateralizing signs. Cranial nerves II through XII grossly intact. PSYCH: Appropriate affect. Alert and oriented to person, place and time. SKIN: Well perfused. Good skin turgor. ASSESSMENT: 1. Perforated sigmoid diverticulitis status post Exploratory laparotomy with de scending colostomy creation, sigmoid colectomy, the flat lens rectum, Fermin's procedure. Abdominal washout and Placement of incisional wound VAC system 2. Present on admission ulcerative colitis 3. Chronic pain syndrome 4. History of skin cancer breast cancer 5. Status post recent partial knee arthroplasty 6. Pre-existing immunosuppression 7. Hypokalemia PLAN: - Continue Broad-spectrum antibiotics -Consult infectious disease - Discontinue Banegas catheter -Encourage patient to ambulate -Replace potassium - DVT prophylaxis - Pulmonary toilet -Consult PT OT -Patient will require home care at discharge Physician Government Teacher note has been reviewed by physician. Signing provider agrees with the documented findings, assessment, and plan of care. Objective - Vital Signs Vital signs: Vital Signs Temp 98.5 F 10/20/19 15:10 Pulse 77 10/20/19 15:10 Resp 16 10/20/19 15:10 BP 107/68 10/20/19 15:10 Pulse Ox 94 L 10/20/19 15:10 Intake & Output 10/19/19 10/20/19 10/20/19 18:59 06:59 18:59 Intake Total 100 222 544 Output Total 400 1100 Balance -300 -878 544 Weight 87.543 kg Intake: Oral 222 444 Other 100 100 Output: Urine 400 1100 Other: Voiding Method Indwelling Catheter Indwelling Catheter Indwelling Catheter - Labs CBC & Chem 7: 10/20/19 08:11 10/20/19 08:11 Labs: Abnormal Lab Results - Last 24 Hours (Table) 10/20/19 10/20/19 Range/Units 08:11 08:11 WBC 15.7 H (3.8-10.6) k/uL RBC 3.69 L (3.80-5.40) m/uL MCV 102.8 H (80.0-100.0) fL Neutrophils # 14.2 H (1.3-7.7) k/uL Lymphocytes # 0.5 L (1.0-4.8) k/uL Sodium 135 L (137-145) mmol/L Potassium 3.2 L (3.5-5.1) mmol/L Glucose 101 H (74-99) mg/dL AST 71 H (14-36) U/L ALT 58 H (4-34) U/L Total Protein 5.6 L (6.3-8.2) g/dL Albumin 2.9 L (3.5-5.0) g/dL Microbiology - Last 24 Hours (Table) 10/18/19 21:02 Blood Culture - Preliminary Blood No Growth after 24 hours <Natalie Matute - Last Filed: 11/01/19 21:56> Subjective Patient seen and evaluated with above. Please see additional comments below. CHIEF COMPLAINT: Perforated diverticulitis HISTORY OF PRESENT ILLNESS: The patient is a 73-year-old female status post Fermin's procedure for perforated sigmoid diverticulitis, 10/19/19. She is tolerating diet. She is pending assessment with physical therapy for her recent left knee arthroplasty. ROS: No reports of nausea and vomiting. No bowel movements. No new chest pain. PHYSICAL EXAM: VITAL SIGNS: Reviewed CONSTITUTIONAL: Well developed and in no acute distress. EYES: Conjuctivae without sclera icterus. Extraocular movements grossly intact. HEAD, EARS, NOSE, THROAT: Moist buccal mucosa. Head is atraumatic, nor mocephalic. Hears conversational speech. No nasal drainage. NECK: Supple. No thyroidomegaly. RESPIRATORY: Non-labored respirations and equal bilateral excursions. CARDIOVASCULAR: Palpable 2+ radial pulses. ABDOMEN: Incisional wound VAC system intact. No cellulitis or infection. Left descending colostomy without flatus or stool MUSCULOSKELETAL: No gross deformity of the lower extremities noted. Recent left knee arthroplasty. SKIN: Good skin turgor. Well perfused. NEUROLOGIC: Cranial nerves II through XII grossly intact. No focal or lateralizing signs. PSYCH: Appropriate affect. Alert and oriented to person, place and time. CLINICAL LABS: WBC elevated from 8.5-15.6, to be expected. Hemoglobin stable 12.2. Potassium low less than 3.5. ASSESSMENT: 1. Perforated sigmoid diverticulitis, status post Nancy's procedure 2. Chronic immunosuppression secondary to ulcerative colitis 3. History of recent knee arthroplasty PLAN: 1. With her history of complicated diverticulitis, infectious disease consultation advised. 2. Arrangement for home health care including rehab as outpatient. 3. Will need outpatient antibiotics secondary to comorbid condition of ulcerative colitis, immunosuppression with complicated perforated diverticulitis Objective - Vital Signs Vital signs: Vital Signs Temp 98.2 F 10/30/19 14:47 Pulse 67 10/30/19 14:47 Resp 17 10/30/19 14:47 BP 115/70 10/30/19 14:47 Pulse Ox 99 10/30/19 14:47 - Labs CBC & Chem 7: 10/28/19 06:37 10/28/19 06:37 Labs: Microbiology - Last 24 Hours (Table) 10/25/19 11:43 Gram Stain - Final Abdomen Wound Culture - Final Escherichia coli Assessment and Plan (1) Ulcerative colitis Status: Acute Code(s): K51.90 - ULCERATIVE COLITIS, UNSPECIFIED, WITHOUT COM PLICATIONS SNOMED Code(s): 95999819 (2) History of breast cancer Status: Acute Code(s): Z85.3 - PERSONAL HISTORY OF MALIGNANT NEOPLASM OF BREAST SNOMED Code(s): 665408609 (3) History of skin cancer Status: Acute Code(s): Z85.828 - PERSONAL HISTORY OF OTHER MALIGNANT NEOPLASM OF SKIN SNOMED Code(s): 113620603 (4) Hypothyroidism Status: Acute Code(s): E03.9 - HYPOTHYROIDISM, UNSPECIFIED SNOMED Code(s): 89362272 (5) Abnormal EKG Status: Acute Code(s): R94.31 - ABNORMAL ELECTROCARDIOGRAM [ECG] [EKG] SNOMED Code(s): 420202029 (6) Sigmoid diverticulosis Status: Acute Code(s): K57.30 - DVRTCLOS OF LG INT W/O PERFORATION OR ABSCESS W/O BLEEDING SNOMED Code(s): 364518095 (7) Chronic pain syndrome Status: Acute Code(s): G89.4 - CHRONIC PAIN SYNDROME SNOMED Code(s): 343524325 (8) Pneumoperitoneum Status: Acute Code(s): K66.8 - OTHER SPECIFIED DISORDERS OF PERITONEUM SNOMED Code(s): 61981416 (9) Perforation of sigmoid colon due to diverticulitis Status: Acute Code(s): K57.20 - DVTRCLI OF LG INT W PERFORATION AND ABSCESS W/O BLEEDING SNOMED Code(s): 6933473135652561
[2019-10-20] MEDS: CALCIUM CARBONATE 500 MG CHEWABLE PO PRN (20:06)
[2019-10-20] MEDS: LATANOPROST 0.005% OPHTH DROPS 2.5 ML BTL BOTH EYES SCH (20:07)
[2019-10-20] MEDS: ONDANSETRON 4 MG/2 ML VIAL IVP PRN (23:34)
--- NOTE | 2019-10-21 00:31 | P.CONS ---
History of Present Illness - Reason for Consult Consult date: 10/20/19 Perforated sigmoid diverticulitis Requesting physician: Natalie Matuet - Chief Complaint Abdominal pain 1 day - History of Present Illness Patient is a 73 female who is recently status post partial knee arthroplasty, patient presented to [facility] on 10/18/2019 with a one-day history of abdominal pain which was sudden in onset. Was mostly in the lower abdominal area which she described the pain to be sharp and almost 10 out of 10 in severity with no radiation patient has felt nauseated but no vomiting and denies having any diarrhea or constipation with this into the patient was evaluated on arrival to the ER the patient did have low-grade fever 100.2 the patient did have a normal white count patient did have a CT of abdominal pelvis which issues large pneumoperitoneum and air collection seen on the sigmoid colon, patient was taken to the OR she was noticed to have perforated sigmoid diverticulitis patient is status post descending colostomy creation, patient has been treated with the Zosyn her white count was noticed which abduct 15.7 today that has prompted this infection disease consultation Review of Systems Positive point has been mentioned in the HPI rest of the systems are negative Past Medical History Past Medical History: Cancer Additional Past Medical History / Comment(s): Basal Cell Carcinoma (left side chest), Squamous Cell CA (right side of chest). Skin CA on nose, left shoulder left side of head and right shoulder. Bladder suspension. colitis, breast CA, History of Any Multi-Drug Resistant Organisms: None Reported Past Surgical History: Cholecystectomy, Orthopedic Surgery Past Anesthesia/Blood Transfusion Reactions: No Reported Reaction Past Psychological History: No Psychological Hx Reported Smoking Status: Former smoker Past Alcohol Use History: Occasional Additional Past Alcohol Use History / Comment(s): Patient states she is a social drinker. Past Drug Use History: None Reported - Past Family History Father History Unknown: Yes Medications and Allergies Home Medications Medication Instructions Recorded Confirmed Type Anastrozole [Arimidex] 1 mg PO DAILY 08/17/19 10/18/19 History Celecoxib [CeleBREX] 200 mg PO DAILY 08/17/19 10/18/19 History Dicyclomine [Bentyl] 20 mg PO QID PRN 08/17/19 10/18/19 History Folic Acid 1 mg PO DAILY 08/17/19 10/18/19 History Gabapentin [Neurontin] 100 mg PO DAILY 08/17/19 10/18/19 History Temazepam [Restoril] 15 - 30 mg PO HS PRN 08/17/19 10/18/19 History Acetaminophen Tab [Tylenol Tab] 1,000 mg PO Q8H PRN 10/18/19 10/18/19 History Aspirin EC [Ecotrin Low Dose] 81 mg PO BID 10/18/19 10/18/19 History Cholecalciferol [Vitamin D3 (25 2,000 unit PO DAILY 10/18/19 10/18/19 History Mcg = 1000 Iu)] Cyanocobalamin [Vitamin B-12] 500 mcg PO DAILY 10/18/19 10/18/19 History Ferrous Sulfate [Feosol] 325 mg PO DAILY 10/18/19 10/18/19 History Ibuprofen [Motrin] 600 mg PO Q8HR PRN 10/18/19 10/18/19 History Latanoprost/Pf [Latanoprost 0.005% 1 drop BOTH EYES HS 10/18/19 10/18/19 History Eye Drop] Levothyroxine Sodium 125 mcg PO DAILY 10/18/19 10/18/19 History Magnesium Oxide [Reyna] 500 mg PO DAILY 10/18/19 10/18/19 History Potassium Gluconate 99 mg PO DAILY 10/18/19 10/18/19 History Zinc 50 mg PO DAILY 10/18/19 10/18/19 History azaTHIOprine [Imuran] 50 mg PO DAILY 10/18/19 10/18/19 History oxyCODONE HCL [oxyCODONE HCL (IR)] 10 mg PO Q4H PRN 10/18/19 10/18/19 History Allergies Allergy/AdvReac Type Severity Reaction Status Date / Time vancomycin Allergy Rash/Hives Verified 10/18/19 18:27 Physical Exam Vitals: Vital Signs Temp Pulse Pulse Resp BP Pulse Ox 10/20/19 07:07 99.4 F 81 16 115/74 91 L 10/20/19 02:14 98.5 F 10/19/19 23:28 79 15 103/56 92 L 10/19/19 19:10 98.9 F 70 14 95/58 93 L 10/19/19 15:00 98.3 F 68 16 112/83 92 L Intake and Output 10/19/19 10/20/19 10/20/19 22:59 06:59 14:59 Intake Total 222 544 Output Total 1100 400 Balance -878 -400 544 Intake: Oral 222 444 Other 100 Output: Urine 1100 400 Other: Voiding Method Indwelling Catheter Indwelling Catheter Weight 87.543 kg GENERAL DESCRIPTION: An elderly female lying in bed, no distress. No tachypnea or accessory muscle of respiration use. HEENT: Shows Pallor , no scleral icterus. Oral mucous membrane is dry. No pha ryngeal erythema or thrush NECK: Trachea central, no thyromegaly. LUNGS: Unlabored breathing. Clear to auscultation anteriorly. No wheeze or crackle. HEART: S1, S2, regular rate and rhythm. No loud murmur ABDOMEN: Soft, mild lower quadrant tenderness , guarding or rigidity, no organomegaly EXTREMITIES: No edema of feet. SKIN: No rash, no masses palpable. NEUROLOGICAL: The patient is awake, alert, oriented x3, mood and affect normal. Results CBC & Chem 7: 10/20/19 08:11 10/20/19 08:11 Labs: Abnormal Lab Results - Last 24 Hours (Table) 10/20/19 10/20/19 Range/Units 08:11 08:11 WBC 15.7 H (3.8-10.6) k/uL RBC 3.69 L (3.80-5.40) m/uL MCV 102.8 H (80.0-100.0) fL Neutrophils # 14.2 H (1.3-7.7) k/uL Lymphocytes # 0.5 L (1.0-4.8) k/uL Sodium 135 L (137-145) mmol/L Potassium 3.2 L (3.5-5.1) mmol/L Glucose 101 H (74-99) mg/dL AST 71 H (14-36) U/L ALT 58 H (4-34) U/L Total Protein 5.6 L (6.3-8.2) g/dL Albumin 2.9 L (3.5-5.0) g/dL Microbiology - Last 24 Hours (Table) 10/18/19 21:02 Blood Culture - Preliminary Blood No Growth after 24 hours Assessment and Plan Assessment: 1-patient presented to hospital with abdominal pain in this patient diagnosed her with pneumoperitoneum secondary to perforated sigmoid diverticulitis status post laparotomy and diverting colostomy, will need to cover for the enteric gram-negative with likely pathogen in this patient started worsening of the white count more likely postoperative reactive rather than any worsening infec tion 2-vancomycin ALLERGY that will limit the number of antibiotic safety use (1) Sigmoid diverticulitis Current Visit: Yes Status: Acute Code(s): K57.32 - DVTRCLI OF LG INT W/O PERFORATION OR ABSCESS W/O BLEEDING SNOMED Code(s): 395532358 (2) Perforation of sigmoid colon due to diverticulitis Current Visit: Yes Status: Acute Code(s): K57.20 - DVTRCLI OF LG INT W PERFORATION AND ABSCESS W/O BLEEDING SNOMED Code(s): 0932224952139914 (3) Pneumoperitoneum Current Visit: Yes Status: Acute Code(s): K66.8 - OTHER SPECIFIED DISORDERS OF PERITONEUM SNOMED Code(s): 73197365 Plan: 1-Zosyn 3.375 g every 8 hours 2-repeat a CBC tomorrow 3-if any worsening white count or develops a new fever appropriate cultures and antibiotic will be adjusted We will follow on clinical condition and cultures to further adjust medication if needed Thank you for this consultation will follow this patient with you
[2019-10-21] MEDS: HYDROmorphone 1 MG/ML 1 ML SYRINGE IVP PRN ×2 (02:26→11:23)
[2019-10-21] MEDS: PIPERACILLIN-TAZOBACTAM 3.375 GM in SODIUM CHLORIDE 0.9% 100 ML IVPB SCH ×3 (05:28→21:38)
[2019-10-21] MEDS: LEVOTHYROXINE 125 MCG TAB PO SCH (05:28)
[2019-10-21] MEDS: KETOROLAC 15 MG/ML 1 ML VIAL IVP SCH ×3 (05:28→17:34)
[2019-10-21] MEDS: PANTOPRAZOLE 40 MG/10 ML VIAL IV SCH (07:25)
[2019-10-21] MEDS: ENOXAPARIN 30 MG/0.3 ML SYRINGE SQ SCH (07:25)
[2019-10-21] MEDS: ANASTROZOLE 1 MG TAB PO SCH (07:25)
[2019-10-21 07:41] LABS: Basophils % (A) 0 %; Eosinophils # (A) 0.5 k/uL (0-0.7); Eosinophils % (A) 4 %; HGB 12.3 gm/dL (11.4-16.0); Lymphocytes # (A) 0.7 k/uL (1.0-4.8); Lymphocytes % (A) 5 %; MCH 32.3 pg (25.0-35.0); MCHC 31.5 g/dL (31.0-37.0); MCV 102.7 fL (80.0-100.0); Macrocytosis Slight; Mean Platelet Volume 8.6; Monocytes # (A) 0.5 k/uL (0-1.0); Monocytes % (A) 4 %; Neutrophils # (A) 11.2 k/uL (1.3-7.7); Neutrophils % (A) 86 %; Platelet Count 222 k/uL (150-450); RDW 13.5 % (11.5-15.5)
[2019-10-21 07:58] LABS: ALT 44 U/L (4-34); AST 48 U/L (14-36); African American GFR (CKD) >90 (>60 ml/min/1.73 sqM); Alkaline Phosphatase 114 U/L (38-126); Anion Gap 8 mmol/L; Blood Urea Nitrogen 16 mg/dL (7-17); Calcium 8.6 mg/dL (8.4-10.2); Carbon Dioxide 24 mmol/L (22-30); Chloride 104 mmol/L (98-107); Glucose 105 mg/dL (74-99); Non-African American GFR(CKD) 89 (>60 ml/min/1.73 sqM); Potassium 3.7 mmol/L (3.5-5.1); Sodium 136 mmol/L (137-145); Total Bilirubin 0.8 mg/dL (0.2-1.3); Total Protein 5.8 g/dL (6.3-8.2)
--- NOTE | 2019-10-21 09:43 | P.PN ---
Subjective Progress Note Date: 10/21/19 Principal diagnosis: Diverticulitis Patient had a large volume emesis this morning. Still feels nauseous. Mild pain. T-max 99.2. White blood cell count 13. Objective - Vital Signs Vital signs: Vital Signs Temp 98.5 F 10/21/19 07:12 Pulse 71 10/21/19 07:12 Resp 16 10/21/19 07:29 BP 136/74 10/21/19 07:12 Pulse Ox 97 10/21/19 07:12 Intake & Output 10/20/19 10/21/19 10/21/19 18:59 06:59 18:59 Intake Total 544 485 Output Total 1450 Balance 544 -965 Weight 87.543 kg Intake: Intake, IV Titration 485 Amount Piperacillin-Tazobactam 3 100 .375 gm In Sodium Chloride 0.9% 100 ml @ 25 mls/hr IVPB Q8H [facility] Rx#: [id number] Sodium Chloride 0.9% 1, 385 000 ml @ 110 mls/hr IV . Q9H6M [facility] Rx#:[id number] Oral 444 Other 100 Output: Urine 450 Emesis 1000 Other: Voiding Method Indwelling Catheter - Exam Abdomen: Soft, mild distention, mild tenderness, ostomy pink without output - Labs CBC & Chem 7: 10/21/19 06:43 10/21/19 06:43 Labs: Abnormal Lab Results - Last 24 Hours (Table) 10/21/19 10/21/19 Range/Units 06:43 06:43 WBC 13.0 H (3.8-10.6) k/uL MCV 102.7 H (80.0-100.0) fL Neutrophils # 11.2 H (1.3-7.7) k/uL Lymphocytes # 0.7 L (1.0-4.8) k/uL Sodium 136 L (137-145) mmol/L Glucose 105 H (74-99) mg/dL AST 48 H (14-36) U/L ALT 44 H (4-34) U/L Total Protein 5.8 L (6.3-8.2) g/dL Albumin 3.0 L (3.5-5.0) g/dL Microbiology - Last 24 Hours (Table) 10/18/19 21:02 Blood Culture - Preliminary Blood No Growth after 48 hours Assessment and Plan (1) Sigmoid diverticulitis Narrative/Plan: Patient with episode of emesis this morning. Will make nothing by mouth at this time. Repeat labs tomorrow. Increase activity. Monitor for bowel function. Current Visit: Yes Status: Acute Code(s): K57.32 - DVTRCLI OF LG INT W/O PERFORATION OR ABSCESS W/O BLEEDING SNOMED Code(s): 370699972
[2019-10-21] MEDS: ONDANSETRON 4 MG/2 ML VIAL IVP PRN (11:24)
--- NOTE | 2019-10-21 12:34 | P.PN ---
Subjective Progress Note Date: 10/20/19 Principal diagnosis: Perforated sigmoid diverticulitis Status post descending colostomy 73 female who is recently status post partial knee arthroplasty, patient presented to [facility] on 10/18/2019 with a one-day history of abdominal pain which was sudden in onset. Was mostly in the lower abdominal area which she described the pain to be sharp and almost 10 out of 10 in severity with no radiation patient has felt nauseated but no vomiting and denies having any diarrhea or constipation with this into the patient was evaluated on arrival to the ER the patient did have low-grade fever 100.2 the patient did have a normal white count patient did have a CT of abdominal pelvis which issues large pneumoperitoneum and air collection seen on the sigmoid colon, patient was taken to the OR she was noticed to have perforated sigmoid diverticulitis patient is status post descending colostomy creation, patient has been treated with the Zosyn her white count was noticed which abduct 15.7 today that has prompted this infection disease consultation Objective - Vital Signs Vital signs: Vital Signs Temp 99.4 F 10/20/19 07:07 Pulse 81 10/20/19 07:07 Resp 16 10/20/19 07:07 BP 115/74 10/20/19 07:07 Pulse Ox 91 L 10/20/19 07:07 Intake & Output 10/19/19 10/20/19 10/20/19 18:59 06:59 18:59 Intake Total 100 222 222 Output Total 400 1100 Balance -300 -878 222 Weight 87.543 kg Intake: Oral 222 222 Other 100 Output: Urine 400 1100 Other: Voiding Method Indwelling Catheter Indwelling Catheter Indwelling Catheter - Exam GENERAL DESCRIPTION: An elderly female lying in bed, no distress. No tachypnea or accessory muscle of respiration use. HEENT: Shows Pallor , no scleral icterus. Oral mucous membrane is dry. No pharyngeal erythema or thrush NECK: Trachea central, no thyromegaly. LUNGS: Unlabored breathing. Clear to auscultation anteriorly. No wheeze or crackle. HEART: S1, S2, regular rate and rhythm. No loud murmur ABDOMEN: Soft, mild lower quadrant tenderness , guarding or rigidity, no organomegaly EXTREMITIES: No edema of feet. SKIN: No rash, no masses palpable. NEUROLOGICAL: The patient is awake, alert, oriented x3, mood and affect normal. - Labs CBC & Chem 7: 09/05/20 06:43 10/21/19 06:43 Labs: Abnormal Lab Results - Last 24 Hours (Table) 10/20/19 10/20/19 Range/Units 08:11 08:11 WBC 15.7 H (3.8-10.6) k/uL RBC 3.69 L (3.80-5.40) m/uL MCV 102.8 H (80.0-100.0) fL Neutrophils # 14.2 H (1.3-7.7) k/uL Lymphocytes # 0.5 L (1.0-4.8) k/uL Sodium 135 L (137-145) mmol/L Potassium 3.2 L (3.5-5.1) mmol/L Glucose 101 H (74-99) mg/dL AST 71 H (14-36) U/L ALT 58 H (4-34) U/L Total Protein 5.6 L (6.3-8.2) g/dL Albumin 2.9 L (3.5-5.0) g/dL Microbiology - Last 24 Hours (Table) 10/18/19 21:02 Blood Culture - Preliminary Blood No Growth after 24 hours Assessment and Plan Assessment: Large pneumoperitoneum due to Acute perforated sigmoid diverticulitis. Status post exporter laparotomy and colectomy with colostomy bag placement. Postoperative day 1. Abdominal washout and incisional wound VAC system placement. Ulcerative colitis currently on Imuran therapy. Hypothyroidism Chronic pain History of breast cancer History of basal cell carcinoma of the skin Recent left knee arthroplasty Obesity with BMI 31.2 DVT prophylaxis Plan 1-Zosyn 3.375 g every 8 hours 2-repeat a CBC tomorrow 3-if any worsening white count or develops a new fever appropriate cultures and antibiotic will be adjusted
--- NOTE | 2019-10-21 15:58 | PN ---
PROGRESS NOTE DATE OF SERVICE: 10/21/2019 REASON FOR FOLLOWUP: Perforated sigmoid diverticulitis. INTERVAL HISTORY: Patient is currently afebrile. The patient is breathing comfortably. Did have an episode of vomiting on midnights and not feeling that good today. No chest pain or cough. No abdominal pain. Did not have any output in the colostomy. PHYSICAL EXAMINATION: Blood pressure 136/74 with a pulse of 71, temperature 98.5. She is 97% on room air. General description is an elderly female lying in bed in no distress. Respiratory system: Unlabored breathing, clear to auscultation anteriorly. Heart S1, S2. Regular rate and rhythm. Abdomen is soft, no tenderness. LABS: Hemoglobin is 12.8, white count 13, BUN of 16, creatinine 0.66. Blood culture has been negative. DIAGNOSTIC IMPRESSION AND PLAN: Patient with perforated sigmoid diverticulitis status post laparotomy and diverting colostomy. The patient at this time is covered with Zosyn, to continue and monitor clinical course closely. Continue supportive care. MMODL / IJN: [id number] /
[2019-10-21] MEDS: LATANOPROST 0.005% OPHTH DROPS 2.5 ML BTL BOTH EYES SCH (21:38)
[2019-10-21] MEDS: TEMAZEPAM 15 MG CAP PO PRN (22:14)
[2019-10-22] MEDS: HYDROmorphone 1 MG/ML 1 ML SYRINGE IVP PRN ×3 (02:17→21:45)
[2019-10-22] MEDS: ONDANSETRON 4 MG/2 ML VIAL IVP PRN (02:21)
[2019-10-22] MEDS: PIPERACILLIN-TAZOBACTAM 3.375 GM in SODIUM CHLORIDE 0.9% 100 ML IVPB SCH ×3 (05:11→21:43)
[2019-10-22] MEDS: LEVOTHYROXINE 125 MCG TAB PO SCH (05:13)
[2019-10-22 07:45] LABS: Basophils % (A) 0 %; Eosinophils # (A) 0.4 k/uL (0-0.7); Eosinophils % (A) 5 %; HCT 33.3 % (34.0-46.0); HGB 10.7 gm/dL (11.4-16.0); Lymphocytes # (A) 0.6 k/uL (1.0-4.8); Lymphocytes % (A) 7 %; MCH 32.7 pg (25.0-35.0); MCHC 32.3 g/dL (31.0-37.0); MCV 101.4 fL (80.0-100.0); Macrocytosis Slight; Mean Platelet Volume 7.7; Monocytes # (A) 0.6 k/uL (0-1.0); Monocytes % (A) 7 %; Neutrophils # (A) 6.3 k/uL (1.3-7.7); Neutrophils % (A) 77 %; Platelet Count 213 k/uL (150-450); RBC 3.28 m/uL (3.80-5.40); RDW 13.4 % (11.5-15.5); WBC 8.2 k/uL (3.8-10.6)
[2019-10-22 07:59] LABS: ALT 30 U/L (4-34); AST 36 U/L (14-36); African American GFR (CKD) >90 (>60 ml/min/1.73 sqM); Albumin 2.5 g/dL (3.5-5.0); Alkaline Phosphatase 113 U/L (38-126); Anion Gap 4 mmol/L; Blood Urea Nitrogen 12 mg/dL (7-17); Calcium 8.1 mg/dL (8.4-10.2); Carbon Dioxide 26 mmol/L (22-30); Chloride 104 mmol/L (98-107); Glucose 98 mg/dL (74-99); Non-African American GFR(CKD) >90 (>60 ml/min/1.73 sqM); Potassium 3.6 mmol/L (3.5-5.1); Sodium 134 mmol/L (137-145); Total Bilirubin 0.6 mg/dL (0.2-1.3); Total Protein 4.9 g/dL (6.3-8.2)
[2019-10-22] MEDS: ENOXAPARIN 30 MG/0.3 ML SYRINGE SQ SCH (08:05)
[2019-10-22] MEDS: PANTOPRAZOLE 40 MG/10 ML VIAL IV SCH (08:05)
[2019-10-22] MEDS: ANASTROZOLE 1 MG TAB PO SCH (08:05)
--- NOTE | 2019-10-22 10:04 | P.PN ---
Subjective Progress Note Date: 10/22/19 Principal diagnosis: Diverticulitis Patient doing better today. No further nausea and vomiting. She is hungry. She is passing flatus through the ostomy. White blood cell count normal. Objective - Vital Signs Vital signs: Vital Signs Temp 99 F 10/22/19 07:35 Pulse 71 10/22/19 08:00 Resp 17 10/22/19 08:00 BP 145/79 10/22/19 07:35 Pulse Ox 94 L 10/22/19 07:35 Intake & Output 10/21/19 10/22/19 10/22/19 18:59 06:59 18:59 Intake Total 100 200 Output Total 375 Balance 100 -175 Intake: Intake, IV Titration 100 200 Amount Piperacillin-Tazobactam 3 100 200 .375 gm In Sodium Chloride 0.9% 100 ml @ 25 mls/hr IVPB Q8H [facility] Rx#: [id number] Output: Urine 375 Other: Voiding Method Toilet Toilet # Voids 2 - Exam Abdomen: Soft, nondistended, dressing clean and dry, mild tenderness, ostomy with small amount of flatus - Labs CBC & Chem 7: 10/22/19 07:10 10/22/19 07:10 Labs: Abnormal Lab Results - Last 24 Hours (Table) 10/22/19 10/22/19 Range/Units 07:10 07:10 RBC 3.28 L (3.80-5.40) m/uL Hgb 10.7 L (11.4-16.0) gm/dL Hct 33.3 L (34.0-46.0) % MCV 101.4 H (80.0-100.0) fL Lymphocytes # 0.6 L (1.0-4.8) k/uL Sodium 134 L (137-145) mmol/L Calcium 8.1 L (8.4-10.2) mg/dL Total Protein 4.9 L (6.3-8.2) g/dL Albumin 2.5 L (3.5-5.0) g/dL Microbiology - Last 24 Hours (Table) 10/18/19 21:02 Blood Culture - Preliminary Blood No Growth after 72 hours Assessment and Plan (1) Sigmoid diverticulitis Narrative/Plan: Patient seems to be doing better. Begin clear liquids. May advance to full set tolerated. Continue ambulation. Current Visit: Yes Status: Acute Code(s): K57.32 - DVTRCLI OF LG INT W/O PERFORATION OR ABSCESS W/O BLEEDING SNOMED Code(s): 002085154
--- NOTE | 2019-10-22 12:38 | P.PN ---
Subjective Progress Note Date: 10/21/19 Principal diagnosis: Perforated sigmoid diverticulitis Status post descending colostomy 73 female who is recently status post partial knee arthroplasty, patient presented to [facility] on 10/18/2019 with a one-day history of abdominal pain which was sudden in onset. Was mostly in the lower abdominal area which she described the pain to be sharp and almost 10 out of 10 in severity with no radiation patient has felt nauseated but no vomiting and denies having any diarrhea or constipation with this into the patient was evaluated on arrival to the ER the patient did have low-grade fever 100.2 the patient did have a normal white count patient did have a CT of abdominal pelvis which issues large pneumoperitoneum and air collection seen on the sigmoid colon, patient was taken to the OR she was noticed to have perforated sigmoid diverticulitis patient is status post descending colostomy creation, patient has been treated with the Zosyn her white count was noticed which abduct 15.7 today that has prompted this infection disease consultation 10/21/2019 Patient is seen and evaluated ambulating with physical therapy; denies any complaint of pain; patient did have episode of large emesis this morning and has been maintained nothing by mouth Vital signs remained stable with a temperature of 98.5, pulse 71, respirations 16 and blood pressure 136/74 Lab review shows a white blood count of 13, hemoglobin of 12.3 and platelets of 222; sodium of 136; AST/ALT improved from 71/58 yesterday from 48/ Surgery is following and patient has been made nothing by mouth again; we will monitor CBC and liver enzymes Objective - Vital Signs Vital signs: Vital Signs Temp 98.5 F 10/21/19 07:12 Pulse 71 10/21/19 07:12 Resp 16 10/21/19 07:29 BP 136/74 10/21/19 07:12 Pulse Ox 97 10/21/19 07:12 Intake & Output 10/20/19 10/21/19 10/21/19 18:59 06:59 18:59 Intake Total 544 485 Output Total 1450 Balance 544 -965 Weight 87.543 kg Intake: Intake, IV Titration 485 Amount Piperacillin-Tazobactam 3 100 .375 gm In Sodium Chloride 0.9% 100 ml @ 25 mls/hr IVPB Q8H [facility] Rx#: [id number] Sodium Chloride 0.9% 1, 385 000 ml @ 110 mls/hr IV . Q9H6M [facility] Rx#:[id number] Oral 444 Other 100 Output: Urine 450 Emesis 1000 Other: Voiding Method Indwelling Catheter - Exam GENERAL DESCRIPTION: An elderly female lying in bed, no distress. No tachypnea or accessory muscle of respiration use. HEENT: Shows Pallor , no scleral icterus. Oral mucous membrane is dry. No pharyngeal erythema or thrush NECK: Trachea central, no thyromegaly. LUNGS: Unlabored breathing. Clear to auscultation anteriorly. No wheeze or crackle. HEART: S1, S2, regular rate and rhythm. No loud murmur ABDOMEN: Soft, mild lower quadrant tenderness , guarding or rigidity, no organomegaly EXTREMITIES: No edema of feet. SKIN: No rash, no masses palpable. NEUROLOGICAL: The patient is awake, alert, oriented x3, mood and affect normal. - Labs CBC & Chem 7: 10/22/19 07:10 10/22/19 07:10 Labs: Abnormal Lab Results - Last 24 Hours (Table) 10/21/19 10/21/19 Range/Units 06:43 06:43 WBC 13.0 H (3.8-10.6) k/uL MCV 102.7 H (80.0-100.0) fL Neutrophils # 11.2 H (1.3-7.7) k/uL Lymphocytes # 0.7 L (1.0-4.8) k/uL Sodium 136 L (137-145) mmol/L Glucose 105 H (74-99) mg/dL AST 48 H (14-36) U/L ALT 44 H (4-34) U/L Total Protein 5.8 L (6.3-8.2) g/dL Albumin 3.0 L (3.5-5.0) g/dL Microbiology - Last 24 Hours (Table) 10/18/19 21:02 Blood Culture - Preliminary Blood No Growth after 48 hours Assessment and Plan Assessment: Large pneumoperitoneum due to Acute perforated sigmoid diverticulitis. Status post exporter laparotomy and colectomy with colostomy bag placement. Postoperative day 1. Abdominal washout and incisional wound VAC system placement. Ulcerative colitis currently on Imuran therapy. Hypothyroidism Chronic pain History of breast cancer History of basal cell carcinoma of the skin Recent left knee arthroplasty Obesity with BMI 31.2 DVT prophylaxis Plan 1-Zosyn 3.375 g every 8 hours 2-repeat a CBC tomorrow 3-if any worsening white count or develops a new fever appropriate cultures and antibiotic will be adjusted
--- NOTE | 2019-10-22 17:48 | P.PN ---
Subjective Progress Note Date: 10/22/19 Principal diagnosis: Perforated sigmoid diverticulitis Status post descending colostomy 73 female who is recently status post partial knee arthroplasty, patient presented to [facility] on 10/18/2019 with a one-day history of abdominal pain which was sudden in onset. Was mostly in the lower abdominal area which she described the pain to be sharp and almost 10 out of 10 in severity with no radiation patient has felt nauseated but no vomiting and denies having any diarrhea or constipation with this into the patient was evaluated on arrival to the ER the patient did have low-grade fever 100.2 the patient did have a normal white count patient did have a CT of abdominal pelvis which issues large pneumoperitoneum and air collection seen on the sigmoid colon, patient was taken to the OR she was noticed to have perforated sigmoid diverticulitis patient is status post descending colostomy creation, patient has been treated with the Zosyn her white count was noticed which abduct 15.7 today that has prompted this infection disease consultation 10/21/2019 Patient is seen and evaluated ambulating with physical therapy; denies any complaint of pain; patient did have episode of large emesis this morning and has been maintained nothing by mouth Vital signs remained stable with a temperature of 98.5, pulse 71, respirations 16 and blood pressure 136/74 Lab review shows a white blood count of 13, hemoglobin of 12.3 and platelets of 222; sodium of 136; AST/ALT improved from 71/58 yesterday from 48/44 Surgery is following and patient has been made nothing by mouth again; we will monitor CBC and liver enzymes 10/22/2019 Patient reports he feels improved and ambulating in the hallway with physical therapy; no further nausea and vomiting and does feel somewhat hungry; patient has been passing gas Vital signs remained stable with a temperature of 99, pulse 71 respirations 17 and blood pressure 145/79 Lab review shows a normal white blood count of 8.2, hemoglobin of 10.7, sodium of 134 Surgery is following and recommending advancing diet to full liquids and continue ambulation Objective - Vital Signs Vital signs: Vital Signs Temp 99 F 10/22/19 07:35 Pulse 71 10/22/19 08:00 Resp 17 10/22/19 08:00 BP 145/79 10/22/19 07:35 Pulse Ox 94 L 10/22/19 07:35 Intake & Output 10/21/19 10/22/19 10/22/19 18:59 06:59 18:59 Intake Total 100 200 Output Total 375 Balance 100 -175 Intake: Intake, IV Titration 100 200 Amount Piperacillin-Tazobactam 3 100 200 .375 gm In Sodium Chloride 0.9% 100 ml @ 25 mls/hr IVPB Q8H [facility] Rx#: [id number] Output: Urine 375 Other: Voiding Method Toilet Toilet # Voids 2 - Exam GENERAL DESCRIPTION: An elderly female lying in bed, no distress. No tachypnea or accessory muscle of respiration use. HEENT: Shows Pallor , no scleral icterus. Oral mucous membrane is dry. No pharyngeal erythema or thrush NECK: Trachea central, no thyromegaly. LUNGS: Unlabored breathing. Clear to auscultation anteriorly. No wheeze or crackle. HEART: S1, S2, regular rate and rhythm. No loud murmur ABDOMEN: Soft, mild lower quadrant tenderness , guarding or rigidity, no orga nomegaly EXTREMITIES: No edema of feet. SKIN: No rash, no masses palpable. NEUROLOGICAL: The patient is awake, alert, oriented x3, mood and affect normal. - Labs CBC & Chem 7: 10/22/19 07:10 10/22/19 07:10 Labs: Abnormal Lab Results - Last 24 Hours (Table) 10/22/19 10/22/19 Range/Units 07:10 07:10 RBC 3.28 L (3.80-5.40) m/uL Hgb 10.7 L (11.4-16.0) gm/dL Hct 33.3 L (34.0-46.0) % MCV 101.4 H (80.0-100.0) fL Lymphocytes # 0.6 L (1.0-4.8) k/uL Sodium 134 L (137-145) mmol/L Calcium 8.1 L (8.4-10.2) mg/dL Total Protein 4.9 L (6.3-8.2) g/dL Albumin 2.5 L (3.5-5.0) g/dL Microbiology - Last 24 Hours (Table) 10/18/19 21:02 Blood Culture - Preliminary Blood No Growth after 72 hours Assessment and Plan Assessment: Large pneumoperitoneum due to Acute perforated sigmoid diverticulitis. Status post exporter laparotomy and colectomy with colostomy bag placement. Postoperative day 1. Abdominal washout and incisional wound VAC system placement. Ulcerative colitis currently on Imuran therapy. Hypothyroidism Chronic pain History of breast cancer History of basal cell carcinoma of the skin Recent left knee arthroplasty Obesity with BMI 31.2 DVT prophylaxis Plan 1-Zosyn 3.375 g every 8 hours 2-repeat a CBC tomorrow 3-if any worsening white count or develops a new fever appropriate cultures and antibiotic will be adjusted
[2019-10-22] MEDS: LATANOPROST 0.005% OPHTH DROPS 2.5 ML BTL BOTH EYES SCH (21:43)
[2019-10-22] MEDS: TEMAZEPAM 15 MG CAP PO PRN (21:45)
--- NOTE | 2019-10-22 21:59 | PN ---
PROGRESS NOTE DATE OF SERVICE: 10/22/2019 REASON FOR FOLLOWUP: Secondary peritonitis from perforated diverticulitis. INTERVAL HISTORY: Patient is currently afebrile, has been breathing comfortably. Denies having any chest pain. No shortness of breath or cough. Abdominal pain is currently controlled. No further nausea, vomiting. PHYSICAL EXAMINATION: Blood pressure 149/71 with a pulse of 72, temperature 99.6. She is 96% on room air. General description is an elderly female up in the bed in no distress. Respiratory system: Unlabored breathing, clear to auscultation anteriorly. Heart S1, S2. Regular rate and rhythm. Abdomen soft, benign, distended, no rigidity. LABS: Hemoglobin is 10.2, white count 8.2, BUN of 12, creatinine 0.64. Blood culture has been negative. DIAGNOSTIC IMPRESSION AND PLAN: Patient with secondary peritonitis from perforated sigmoid diverticulitis status post diverting colostomy. The patient is currently on Zosyn. White count normalized. Zosyn to continue. Hopefully finish therapy with oral antibiotics. Continue supportive care. MMODL / IJN: [id number] /
[2019-10-23] MEDS: PIPERACILLIN-TAZOBACTAM 3.375 GM in SODIUM CHLORIDE 0.9% 100 ML IVPB SCH ×3 (05:23→20:19)
[2019-10-23] MEDS: LEVOTHYROXINE 125 MCG TAB PO SCH (05:23)
[2019-10-23] MEDS: ENOXAPARIN 30 MG/0.3 ML SYRINGE SQ SCH (08:04)
[2019-10-23] MEDS: PANTOPRAZOLE 40 MG/10 ML VIAL IV SCH (08:05)
[2019-10-23] MEDS: ANASTROZOLE 1 MG TAB PO SCH (08:05)
[2019-10-23] MEDS: HYDROmorphone 1 MG/ML 1 ML SYRINGE IVP PRN ×2 (09:10→21:23)
--- NOTE | 2019-10-23 11:51 | P.PN ---
Subjective Progress Note Date: 10/23/19 Principal diagnosis: Diverticulitis Patient complaints of some gassy crampy pain. T-max 99.6. Ostomy is functioning with stool present. Objective - Vital Signs Vital signs: Vital Signs Temp 98.5 F 10/23/19 07:00 Pulse 67 10/23/19 08:00 Resp 18 10/23/19 08:00 BP 151/89 10/23/19 07:00 Pulse Ox 94 L 10/23/19 07:00 Intake & Output 10/22/19 10/23/19 10/23/19 18:59 06:59 18:59 Other: Voiding Method Toilet Toilet Toilet # Voids 1 2 # Emeses 1 - Exam Abdomen: Soft, nondistended, dressing clean and dry, ostomy functioning - Labs CBC & Chem 7: 10/22/19 07:10 10/22/19 07:10 Labs: Microbiology - Last 24 Hours (Table) 10/18/19 21:02 Blood Culture - Preliminary Blood No Growth after 96 hours Assessment and Plan (1) Sigmoid diverticulitis Narrative/Plan: Continue full liquid diet for now. Increase activity. Ostomy teaching and care. Current Visit: Yes Status: Acute Code(s): K57.32 - DVTRCLI OF LG INT W/O PERFORATION OR ABSCESS W/O BLEEDING SNOMED Code(s): 869685120
[2019-10-23] MEDS ORDERED: hydrALAZINE HCL 20 MG/ML 1 ML VIAL IVP PRN (18:36)
[2019-10-23] MEDS: amLODIPine 5 MG TAB PO SCH (19:24)
[2019-10-23] MEDS: LATANOPROST 0.005% OPHTH DROPS 2.5 ML BTL BOTH EYES SCH (20:20)
[2019-10-23] MEDS: ONDANSETRON 4 MG/2 ML VIAL IVP PRN (21:23)
--- NOTE | 2019-10-24 03:10 | PN ---
PROGRESS NOTE DATE OF SERVICE: 10/23/2019 This 73-year-old woman who was admitted after intraperitoneal air and as well as sigmoid perforation had surgery. The patient was closely monitored. No chest pain or palpitations. No fever. The blood pressure is elevated. REVIEW OF SYSTEMS: CARDIOVASCULAR SYSTEM: No angina. RESPIRATORY SYSTEM: As mentioned earlier. GI: As mentioned earlier. : No dysuria. CURRENT MEDICATIONS: Current medications are reviewed and include: 1. Arimidex. 2. Tums. 3. Lovenox. 4. Dilaudid. 5. Xalatan. 6. Synthroid. 7. Reglan. 8. Zofran. 9. Protonix. 10.Zosyn IV. 11.Restoril. PHYSICAL EXAMINATION: On exam, the patient is alert and oriented x3. Pulse 67, blood pressure 156/118, respirations 16, temperature 98.5, pulse ox 95% on room air. HEENT: Conjunctivae normal. NECK: No jugular venous distention. CARDIOVASCULAR: S1, S2 muffled. RESPIRATORY: Breath sounds diminished at the bases. Scattered rhonchi. No crackles. ABDOMEN: Soft, status post surgery. LEGS: No edema, no swelling. NERVOUS SYSTEM: No focal deficits. LABS: WBC 8.2, hemoglobin 10.7, albumin is 2.5. Other labs are noted. ASSESSMENT: 1. Sigmoid perforation from diverticulitis and large pneumoperitoneum, status post exploratory laparotomy, colectomy with colostomy. 2. Hypertension, accelerated. 3. Ulcerative colitis history on Imuran. 4. Hypothyroidism. 5. Chronic pain. 6. History of breast cancer. 7. History of basal cell carcinoma of the skin. 8. History of recent left total knee arthroplasty. RECOMMENDATIONS AND DISCUSSION: In this 73-year-old woman who presented with multiple complex medical issues, we will monitor the patient closely. Continue the current medications, continue symptomatic treatment. Patient is on broad-spectrum IV antibiotics. The cultures are negative so far. The patient is on multiple medications at home. I would recommend to restart some more of them. See orders for details. I would also recommend initiate Norvasc for blood pressure. We will continue to monitor. Otherwise, closely follow with Surgery. Further recommendations to follow. MMODL / IJN: [id number] /
[2019-10-24] MEDS: PIPERACILLIN-TAZOBACTAM 3.375 GM in SODIUM CHLORIDE 0.9% 100 ML IVPB SCH ×3 (04:47→21:04)
[2019-10-24] MEDS: LEVOTHYROXINE 125 MCG TAB PO SCH (04:47)
--- NOTE | 2019-10-24 06:13 | PN ---
PROGRESS NOTE DATE OF SERVICE: 10/23/2019 REASON FOR FOLLOWUP: Perforated sigmoid diverticulitis. INTERVAL HISTORY: The patient is currently afebrile patient is breathing comfortably. The patient denies having any chest pain or shortness of breath or cough. No nausea, no vomiting. Did have output in her colostomy bag. PHYSICAL EXAMINATION: Blood pressure is 135/81 with a pulse of 73, temperature 99.4. She is 93% on room air. General description is an elderly female lying in bed in no distress. RESPIRATORY SYSTEM: Unlabored breathing, clear to auscultation anteriorly. HEART: S1, S2. Regular rate and rhythm. ABDOMEN: Soft, no tenderness. LABS: Hemoglobin is 10.7, white count 8.2, BUN of 12, creatinine 0.64. DIAGNOSTIC IMPRESSION AND PLAN: Patient with perforated sigmoid diverticulitis status post laparotomy and diverting colostomy. The patient is currently covered with Zosyn to continue hopefully transition to p.o. on discharge. Continue with supportive care. MMODL / IJN: [id number] /
[2019-10-24 09:20] LABS: Basophils % (A) 0 %; Eosinophils # (A) 0.3 k/uL (0-0.7); Eosinophils % (A) 4 %; HCT 35.5 % (34.0-46.0); HGB 11.4 gm/dL (11.4-16.0); Lymphocytes # (A) 0.6 k/uL (1.0-4.8); Lymphocytes % (A) 7 %; MCH 32.2 pg (25.0-35.0); MCHC 32.2 g/dL (31.0-37.0); MCV 100.1 fL (80.0-100.0); Mean Platelet Volume 8.3; Monocytes # (A) 0.9 k/uL (0-1.0); Monocytes % (A) 10 %; Neutrophils # (A) 6.9 k/uL (1.3-7.7); Neutrophils % (A) 77 %; Platelet Count 275 k/uL (150-450); RBC 3.55 m/uL (3.80-5.40); RDW 13.1 % (11.5-15.5); WBC 8.9 k/uL (3.8-10.6)
[2019-10-24 09:36] LABS: African American GFR (CKD) >90 (>60 ml/min/1.73 sqM); Anion Gap 11 mmol/L; Blood Urea Nitrogen 5 mg/dL (7-17); Carbon Dioxide 25 mmol/L (22-30); Chloride 98 mmol/L (98-107); Glucose 100 mg/dL (74-99); Non-African American GFR(CKD) >90 (>60 ml/min/1.73 sqM); Potassium 3.1 mmol/L (3.5-5.1); Sodium 134 mmol/L (137-145)
[2019-10-24] MEDS: ZINC SULFATE 220 MG CAP PO SCH (09:58)
[2019-10-24] MEDS: amLODIPine 5 MG TAB PO SCH (09:58)
[2019-10-24] MEDS: GABAPENTIN 100 MG CAP PO SCH (09:59)
[2019-10-24] MEDS: CYANOCOBALAMIN 500 MCG TAB PO SCH (10:00)
[2019-10-24] MEDS: FOLIC ACID 1 MG TAB PO SCH (10:00)
[2019-10-24] MEDS: ANASTROZOLE 1 MG TAB PO SCH (10:01)
[2019-10-24] MEDS: PANTOPRAZOLE 40 MG/10 ML VIAL IV SCH (10:12)
[2019-10-24] MEDS: ENOXAPARIN 30 MG/0.3 ML SYRINGE SQ SCH (10:12)
[2019-10-24] MEDS ORDERED: Potassium Replacement Protocol 1 EACH MISC MISCELLANE PRN (10:55)
[2019-10-24] MEDS: ONDANSETRON 4 MG/2 ML VIAL IVP PRN ×2 (11:29→21:36)
[2019-10-24] MEDS: POTASSIUM CHLORIDE ER 20 MEQ TAB.ER PO SCH ×4 (11:30→23:05)
[2019-10-24] MEDS: HYDROmorphone 1 MG/ML 1 ML SYRINGE IVP PRN (12:17)
--- NOTE | 2019-10-24 13:13 | P.PN ---
Subjective 73 female who is recently status post partial knee arthroplasty, patient presented to [facility] on 10/18/2019 with a one-day history of abdominal pain which was sudden in onset. Was mostly in the lower abdominal area which she described the pain to be sharp and almost 10 out of 10 in severity with no radiation patient has felt nauseated but no vomiting and denies having any diarrhea or constipation with this into the patient was evaluated on arrival to the ER the patient did have low-grade fever 100.2 the patient did pineda ve a normal white count patient did have a CT of abdominal pelvis which issues large pneumoperitoneum and air collection seen on the sigmoid colon, patient was taken to the OR she was noticed to have perforated sigmoid diverticulitis patient is status post descending colostomy creation, patient has been treated with the Zosyn her white count was noticed which abduct 15.7 today that has prompted this infection disease consultation 10/21/2019 Patient is seen and evaluated ambulating with physical therapy; denies any complaint of pain; patient did have episode of large emesis this morning and has been maintained nothing by mouth Vital signs remained stable with a temperature of 98.5, pulse 71, respirations 16 and blood pressure 136/74 Lab review shows a white blood count of 13, hemoglobin of 12.3 and platelets of 222; sodium of 136; AST/ALT improved from 71/58 yesterday from Surgery is following and patient has been made nothing by mouth again; we will monitor CBC and liver enzymes 10/22/2019 Patient reports he feels improved and ambulating in the hallway with physical therapy; no further nausea and vomiting and does feel somewhat hungry; patient has been passing gas Vital signs remained stable with a temperature of 99, pulse 71 respirations 17 and blood pressure 145/79 Lab review shows a normal white blood count of 8.2, hemoglobin of 10.7, sodium of 134 Surgery is following and recommending advancing diet to full liquids and continue ambulation 09/23/2019 Patient is on liquid diet at this time, does have bowel sounds. Constitutional: Denied any fatigue denied any fever. Cardio vascular: denied any chest pain, palpitations Gastrointestinal denied any nausea vomiting Pulmonary: Denied any shortness of breath cough Neurologic denied any new focal deficits All inpatient medications were reviewed and appropriate changes in these medications as dictated in the interval history and assessment and plan. Objective - Vital Signs Vital signs: Vital Signs Temp 97.9 F 10/24/19 07:00 Pulse 67 10/24/19 07:00 Resp 18 10/24/19 07:00 BP 126/68 10/24/19 07:00 Pulse Ox 94 L 10/24/19 07:00 Intake & Output 10/23/19 10/24/19 10/24/19 18:59 06:59 18:59 Intake Total 100 320 296 Output Total 400 Balance 100 320 -104 Intake: Intake, IV Titration 100 320 Amount Piperacillin-Tazobactam 3 100 .375 gm In Sodium Chloride 0.9% 100 ml @ 25 mls/hr IVPB Q8H [facility] Rx#: [id number] Sodium Chloride 0.9% 1, 320 000 ml @ 0 mls/hr IV .[facility] Rx#:[id number] Oral 296 Output: Urine 100 Stool 300 Other: Voiding Method Toilet Toilet Toilet Bedpan # Voids 2 1 # Bowel Movements 1 - Exam PHYSICAL EXAMINATION: GENERAL: The patient is alert and oriented x3, not in any acute distress. Well developed, well nourished. HEENT: Pupils are round and equally reacting to light. EOMI. No scleral icterus. No conjunctival pallor. Normocephalic, atraumatic. No pharyngeal erythema. No thyromegaly. CARDIOVASCULAR: S1 and S2 present. No murmurs, rubs, or gallops. PULMONARY: Chest is clear to auscultation, no wheezing or crackles. ABDOMEN: Soft, nontender, nondistended, normoactive bowel sounds. No palpable organomegaly. MUSCULOSKELETAL: No joint swelling or deformity. EXTREMITIES: No cyanosis, clubbing, or pedal edema. NEUROLOGICAL: Gross neurological examination did not reveal any focal deficits. SKIN: No rashes. - Labs CBC & Chem 7: 10/24/19 08:27 10/24/19 08:27 Labs: Abnormal Lab Results - Last 24 Hours (Table) 10/24/19 10/24/19 Range/Units 08:27 08:27 RBC 3.55 L (3.80-5.40) m/uL MCV 100.1 H (80.0-100.0) fL Lymphocytes # 0.6 L (1.0-4.8) k/uL Sodium 134 L (137-145) mmol/L Potassium 3.1 L (3.5-5.1) mmol/L BUN 5 L (7-17) mg/dL Glucose 100 H (74-99) mg/dL Calcium 8.0 L (8.4-10.2) mg/dL Microbiology - Last 24 Hours (Table) 10/18/19 21:02 Blood Culture - Preliminary Blood No Growth after 120 hours Assessment and Plan Plan: Large pneumoperitoneum due to Acute perforated sigmoid diverticulitis. Status post exporter laparotomy and colectomy with colostomy bag placement. Patient is presently on Zosyn is on clear liquid diet tolerating very well does have bowel sounds Abdominal washout and incisional wound VAC system placement. Ulcerative colitis currently on Imuran therapy. Hypothyroidism Chronic pain History of breast cancer History of basal cell carcinoma of the skin Recent left knee arthroplasty Obesity with BMI 31.2 DVT prophylaxis
--- NOTE | 2019-10-24 13:46 | P.PN ---
<Jazmyne Menon - Last Filed: 10/24/19 13:40> Subjective Progress Note Date: 10/24/19 CHIEF COMPLAINT: Pneumoperitoneum HISTORY OF PRESENT ILLNESS: he patient is a 73 year old female who recently underwent uneventful partial knee arthroplasty less than 5 days ago who developed acute onset abdominal pain. CT of the abdomen and pelvis is consistent with pneumoperitoneum. Patient is status post Exploratory laparotomy with descending colostomy creation, sigmoid colectomy, the flat lens rectum, Fermin's procedure. Abdominal washout 3 L normal saline and Placement of incisional wound VAC system for perforated sigmoid diverticulitis. Patient sitting in bedside chair. Denies abdominal pain. She has stool in her colostomy bag. She has any nausea or vomiting. She has been coughing. She had 1 bout of emesis yesterday while coughing. She is on full liquid diet. She is afebrile. WBC 8.9 hemoglobin 11.4 potassium 3.1 PHYSICAL EXAM: VITAL SIGNS: Reviewed GENERAL: Well-developed in no acute distress. HEENT: No sclera icterus. Extraocular movements grossly intact. Moist buccal mucosa. Head is atraumatic, normocephalic. Hears conversational speech. No nasal drainage. NECK: Supple without lymphadenopathy. CHEST: Non-labored respirations and equal bilateral excursions. CARDIOVASCULAR: Regular rate with regular rhythm. Palpable 2+ radial pulses. ABDOMEN: Soft. Nondistended. Nontender. Liquidy stool present in colostomy bag MUSCULOSKELETAL: No clubbing or cyanosis. NEUROLOGIC: No focal or lateralizing signs. Cranial nerves II through XII grossly intact. PSYCH: Appropriate affect. Alert and oriented to person, place and time. SKIN: Well perfused. Good skin turgor. ASSESSMENT: 1. Perforated sigmoid diverticulitis status post Exploratory laparotomy with descending colostomy creation, sigmoid colectomy, the flat lens rectum, Fermin's procedure. Abdominal washout and Placement of incisional wound VAC system 2. Present on admission ulcerative colitis 3. Chronic pain syndrome 4. History of skin cancer breast cancer 5. Status post recent partial knee arthroplasty 6. Pre-existing immunosuppression 7. Hypokalemia PLAN: - Continue antibiotics per ID - Replace potassium per protocol - DVT prophylaxis - Encourage incentive spirometry use - Encourage ambulating Physician Production Grader note has been reviewed by physician. Signing provider agrees with the documented findings, assessment, and plan of care. Objective - Vital Signs Vital signs: Vital Signs Temp 97.9 F 10/24/19 07:00 Pulse 67 10/24/19 07:00 Resp 18 10/24/19 07:00 BP 126/68 10/24/19 07:00 Pulse Ox 94 L 10/24/19 07:00 Intake & Output 10/23/19 10/24/19 10/24/19 18:59 06:59 18:59 Intake Total 100 320 296 Output Total 400 Balance 100 320 -104 Intake: Intake, IV Titration 100 320 Amount Piperacillin-Tazobactam 3 100 .375 gm In Sodium Chloride 0.9% 100 ml @ 25 mls/hr IVPB Q8H [facility] Rx#: [id number] Sodium Chloride 0.9% 1, 320 000 ml @ 0 mls/hr IV .[facility] Rx#:[id number] Oral 296 Output: Urine 100 Stool 300 Other: Voiding Method Toilet Toilet Toilet Bedpan # Voids 2 1 # Bowel Movements 1 - Labs CBC & Chem 7: 10/24/19 08:27 10/24/19 08:27 Labs: Abnormal Lab Results - Last 24 Hours (Table) 10/24/19 10/24/19 Range/Units 08:27 08:27 RBC 3.55 L (3.80-5.40) m/uL MCV 100.1 H (80.0-100.0) fL Lymphocytes # 0.6 L (1.0-4.8) k/uL Sodium 134 L (137-145) mmol/L Potassium 3.1 L (3.5-5.1) mmol/L BUN 5 L (7-17) mg/dL Glucose 100 H (74-99) mg/dL Calcium 8.0 L (8.4-10.2) mg/dL Microbiology - Last 24 Hours (Table) 10/18/19 21:02 Blood Culture - Preliminary Blood No Growth after 120 hours <Logan Best - Last Filed: 10/24/19 16:05> Subjective As above. Patient improving. Her pain is less today. She is having better bowel function. Continue antibiotics. Increase activity levels. Continue ostomy teaching. Hopefully discharge 24-48 hours. Objective - Vital Signs Vital signs: Vital Signs Temp 97.9 F 10/24/19 07:00 Pulse 67 10/24/19 07:00 Resp 18 10/24/19 07:00 BP 126/68 10/24/19 07:00 Pulse Ox 94 L 10/24/19 07:00 Intake & Output 10/23/19 10/24/19 10/24/19 18:59 06:59 18:59 Intake Total 100 320 296 Output Total 400 Balance 100 320 -104 Intake: Intake, IV Titration 100 320 Amount Piperacillin-Tazobactam 3 100 .375 gm In Sodium Chloride 0.9% 100 ml @ 25 mls/hr IVPB Q8H [facility] Rx#: [id number] Sodium Chloride 0.9% 1, 320 000 ml @ 0 mls/hr IV .[facility] Rx#:[id number] Oral 296 Output: Urine 100 Stool 300 Other: Voiding Method Toilet Toilet Toilet Bedpan # Voids 2 1 # Bowel Movements 1 - Labs CBC & Chem 7: 10/24/19 08:27 10/24/19 08:27 Labs: Abnormal Lab Results - Last 24 Hours (Table) 10/24/19 10/24/19 Range/Units 08:27 08:27 RBC 3.55 L (3.80-5.40) m/uL MCV 100.1 H (80.0-100.0) fL Lymphocytes # 0.6 L (1.0-4.8) k/uL Sodium 134 L (137-145) mmol/L Potassium 3.1 L (3.5-5.1) mmol/L BUN 5 L (7-17) mg/dL Glucose 100 H (74-99) mg/dL Calcium 8.0 L (8.4-10.2) mg/dL Microbiology - Last 24 Hours (Table) 10/18/19 21:02 Blood Culture - Preliminary Blood No Growth after 120 hours Assessment and Plan (1) Sigmoid diverticulitis Current Visit: Yes Status: Acute Code(s): K57.32 - DVTRCLI OF LG INT W/O PERFORATION OR ABSCESS W/O BLEEDING SNOMED Code(s): 788435504
--- NOTE | 2019-10-24 16:04 | PN ---
PROGRESS NOTE DATE OF SERVICE: 10/24/2019 REASON FOR FOLLOWUP: Secondary peritonitis from perforated sigmoid diverticulitis. INTERVAL HISTORY: The patient is currently afebrile. The patient is breathing comfortably. The patient denies having any chest pain or shortness of breath or cough. Abdominal pain is currently controlled. No nausea, no vomiting. PHYSICAL EXAMINATION: Blood pressure 126/58 with a pulse of 67, temperature 97.9. She is 94% on room air. General description is an elderly female up in the bed in no distress. RESPIRATORY SYSTEM: Unlabored breathing. Clear to auscultation anteriorly. HEART: S1, S2. Regular rate and rhythm. ABDOMEN: Soft. No tenderness. LABS: Hemoglobin 11.4, white count 8.9, BUN of 5, creatinine 0.57. Blood culture negative. DIAGNOSTIC IMPRESSION AND PLAN: Patient with secondary peritonitis from perforated sigmoid diverticulitis, status post diverting colostomy. Patient was started on Zosyn. White count normalized. Blood culture negative. Finish therapy with oral antibiotics. Stable for discharge. Continue with supportive care. MMODL / IJN: [id number] /
[2019-10-24] MEDS: LATANOPROST 0.005% OPHTH DROPS 2.5 ML BTL BOTH EYES SCH (21:09)
[2019-10-24] MEDS: TEMAZEPAM 15 MG CAP PO PRN (23:09)
[2019-10-25] MEDS: PIPERACILLIN-TAZOBACTAM 3.375 GM in SODIUM CHLORIDE 0.9% 100 ML IVPB SCH ×3 (05:51→21:00)
[2019-10-25] MEDS: LEVOTHYROXINE 125 MCG TAB PO SCH (05:51)
[2019-10-25] MEDS: CALCIUM CARBONATE 500 MG CHEWABLE PO PRN (06:20)
[2019-10-25] MEDS: CYANOCOBALAMIN 500 MCG TAB PO SCH (08:10)
[2019-10-25] MEDS: ZINC SULFATE 220 MG CAP PO SCH (08:10)
[2019-10-25] MEDS: FOLIC ACID 1 MG TAB PO SCH (08:10)
[2019-10-25] MEDS: amLODIPine 5 MG TAB PO SCH (08:16)
[2019-10-25] MEDS: GABAPENTIN 100 MG CAP PO SCH (08:16)
[2019-10-25] MEDS: ANASTROZOLE 1 MG TAB PO SCH (08:17)
[2019-10-25] MEDS: PANTOPRAZOLE 40 MG/10 ML VIAL IV SCH (08:18)
[2019-10-25] MEDS: ENOXAPARIN 30 MG/0.3 ML SYRINGE SQ SCH (08:20)
[2019-10-25 08:32] LABS: Basophils % (A) 0 %; Eosinophils # (A) 0.5 k/uL (0-0.7); Eosinophils % (A) 5 %; HCT 36.1 % (34.0-46.0); HGB 11.4 gm/dL (11.4-16.0); Lymphocytes # (A) 0.7 k/uL (1.0-4.8); Lymphocytes % (A) 8 %; MCH 31.7 pg (25.0-35.0); MCHC 31.6 g/dL (31.0-37.0); MCV 100.4 fL (80.0-100.0); Mean Platelet Volume 8.2; Monocytes # (A) 0.8 k/uL (0-1.0); Monocytes % (A) 9 %; Neutrophils # (A) 6.6 k/uL (1.3-7.7); Neutrophils % (A) 76 %; Platelet Count 343 k/uL (150-450); RBC 3.59 m/uL (3.80-5.40); RDW 13.3 % (11.5-15.5); WBC 8.7 k/uL (3.8-10.6)
[2019-10-25 09:15] LABS: African American GFR (CKD) >90 (>60 ml/min/1.73 sqM); Anion Gap 6 mmol/L; Blood Urea Nitrogen 4 mg/dL (7-17); Calcium 8.4 mg/dL (8.4-10.2); Carbon Dioxide 29 mmol/L (22-30); Chloride 99 mmol/L (98-107); Glucose 92 mg/dL (74-99); Non-African American GFR(CKD) 88 (>60 ml/min/1.73 sqM); Potassium 4.2 mmol/L (3.5-5.1); Sodium 134 mmol/L (137-145)
--- NOTE | 2019-10-25 11:38 | P.PN ---
Subjective Progress Note Date: 10/25/19 Principal diagnosis: Diverticulitis Patient complaining of some increased abdominal discomfort. No fevers. White blood cell count normal. Tolerating diet however feels some satiety. Would like to try less solid foods. Objective - Vital Signs Vital signs: Vital Signs Temp 97.6 F 10/25/19 07:28 Pulse 84 10/25/19 07:28 Resp 16 10/25/19 07:28 BP 126/76 10/25/19 07:28 Pulse Ox 95 10/25/19 00:57 Intake & Output 10/24/19 10/25/19 10/25/19 18:59 06:59 18:59 Intake Total 532 160 Output Total 400 200 Balance 132 -40 Intake: Intake, IV Titration 160 Amount Sodium Chloride 0.9% 1, 160 000 ml @ 0 mls/hr IV .[facility] Rx#:[id number] Oral 532 Output: Urine 100 Stool 300 200 Other: Voiding Method Toilet Toilet Toilet Bedpan Bedpan # Voids 1 3 - Exam Abdomen: Soft, nondistended, mild tenderness along incision, lower aspect of incision with erythema - Labs CBC & Chem 7: 10/25/19 07:08 10/25/19 07:08 Labs: Abnormal Lab Results - Last 24 Hours (Table) 10/25/19 10/25/19 Range/Units 07:08 07:08 RBC 3.59 L (3.80-5.40) m/uL MCV 100.4 H (80.0-100.0) fL Lymphocytes # 0.7 L (1.0-4.8) k/uL Sodium 134 L (137-145) mmol/L BUN 4 L (7-17) mg/dL Microbiology - Last 24 Hours (Table) 10/18/19 21:02 Blood Culture - Final Blood No Growth after 144 hours Assessment and Plan (1) Sigmoid diverticulitis Narrative/Plan: Increasing erythema lower aspect of incision. At the bedside 3 lani were removed. 2 separate areas were opened bluntly and seropurulent fluid was evacuated. Cultures were obtained. Area was then packed with 4 x 4 gauze. Begin local wound care. Continue antibiotics. Current Visit: Yes Status: Acute Code(s): K57.32 - DVTRCLI OF LG INT W/O PERFORATION OR ABSCESS W/O BLEEDING SNOMED Code(s): 578924291
--- NOTE | 2019-10-25 12:38 | P.PN ---
Subjective 73 female who is recently status post partial knee arthroplasty, patient presented to [facility] on 10/18/2019 with a one-day history of abdominal pain which was sudden in onset. Was mostly in the lower abdominal area which she described the pain to be sharp and almost 10 out of 10 in severity with no radiation patient has felt nauseated but no vomiting and denies having any diarrhea or constipation with this into the patient was evaluated on arrival to the ER the patient did have low-grade fever 100.2 the patient did pineda ve a normal white count patient did have a CT of abdominal pelvis which issues large pneumoperitoneum and air collection seen on the sigmoid colon, patient was taken to the OR she was noticed to have perforated sigmoid diverticulitis patient is status post descending colostomy creation, patient has been treated with the Zosyn her white count was noticed which abduct 15.7 today that has prompted this infection disease consultation 10/21/2019 Patient is seen and evaluated ambulating with physical therapy; denies any complaint of pain; patient did have episode of large emesis this morning and has been maintained nothing by mouth Vital signs remained stable with a temperature of 98.5, pulse 71, respirations 16 and blood pressure 136/74 Lab review shows a white blood count of 13, hemoglobin of 12.3 and platelets of 222; sodium of 136; AST/ALT improved from 71/58 yesterday from 48 Surgery is following and patient has been made nothing by mouth again; we will monitor CBC and liver enzymes 10/22/2019 Patient reports he feels improved and ambulating in the hallway with physical therapy; no further nausea and vomiting and does feel somewhat hungry; patient has been passing gas Vital signs remained stable with a temperature of 99, pulse 71 respirations 17 and blood pressure 145/79 Lab review shows a normal white blood count of 8.2, hemoglobin of 10.7, sodium of 134 Surgery is following and recommending advancing diet to full liquids and continue ambulation 10/24/2019 Patient is on liquid diet at this time, does have bowel sounds. 09/24/2019 Patient remains on liquid diet today and the patient's abdominal surgical site area appeared to be infected because of which won't cultures were obtained patient was started on Zosyn by general surgery Constitutional: Denied any fatigue denied any fever. Cardio vascular: denied any chest pain, palpitations Gastrointestinal denied any nausea vomiting Pulmonary: Denied any shortness of breath cough Neurologic denied any new focal deficits All inpatient medications were reviewed and appropriate changes in these medications as dictated in the interval history and assessment and plan. Objective - Vital Signs Vital signs: Vital Signs Temp 97.6 F 10/25/19 07:28 Pulse 84 10/25/19 07:28 Resp 16 10/25/19 07:28 BP 126/76 10/25/19 07:28 Pulse Ox 95 10/25/19 00:57 Intake & Output 10/24/19 10/25/19 10/25/19 18:59 06:59 18:59 Intake Total 532 160 Output Total 400 200 Balance 132 -40 Intake: Intake, IV Titration 160 Amount Sodium Chloride 0.9% 1, 160 000 ml @ 0 mls/hr IV .[facility] Rx#:[id number] Oral 532 Output: Urine 100 Stool 300 200 Other: Voiding Method Toilet Toilet Toilet Bedpan Bedpan # Voids 1 3 - Exam PHYSICAL EXAMINATION: GENERAL: The patient is alert and oriented x3, not in any acute distress. Well developed, well nourished. HEENT: Pupils are round and equally reacting to light. EOMI. No scleral icterus. No conjunctival pallor. Normocephalic, atraumatic. No pharyngeal erythema. No thyromegaly. CARDIOVASCULAR: S1 and S2 present. No murmurs, rubs, or gallops. PULMONARY: Chest is clear to auscultation, no wheezing or crackles. ABDOMEN: Soft, nontender, nondistended, normoactive bowel sounds. No palpable organomegaly. Surgical site area was not examined by me deferred to general surgery MUSCULOSKELETAL: No joint swelling or deformity. EXTREMITIES: No cyanosis, clubbing, or pedal edema. NEUROLOGICAL: Gross neurological examination did not reveal any focal deficits. SKIN: No rashes. - Labs CBC & Chem 7: 10/25/19 07:08 10/25/19 07:08 Labs: Abnormal Lab Results - Last 24 Hours (Table) 10/25/19 10/25/19 Range/Units 07:08 07:08 RBC 3.59 L (3.80-5.40) m/uL MCV 100.4 H (80.0-100.0) fL Lymphocytes # 0.7 L (1.0-4.8) k/uL Sodium 134 L (137-145) mmol/L BUN 4 L (7-17) mg/dL Microbiology - Last 24 Hours (Table) 10/18/19 21:02 Blood Culture - Final Blood No Growth after 144 hours Assessment and Plan Plan: Large pneumoperitoneum due to Acute perforated sigmoid diverticulitis. Status post exporter laparotomy and colectomy with colostomy bag placement. Patient is presently on Zosyn is on clear liquid diet tolerating very well does have bowel sounds Abdominal washout and incisional wound VAC system placement. Possible infection of the surgical site and patient is being continued on just Zosyn wound cultures were obtained Ulcerative colitis currently on Imuran therapy. Hypothyroidism Chronic pain History of breast cancer History of basal cell carcinoma of the skin Recent left knee arthroplasty Obesity with BMI 31.2 DVT prophylaxis
[2019-10-25] MEDS: ACETAMINOPHEN TAB 325 MG TAB PO PRN (15:42)
--- NOTE | 2019-10-25 16:17 | PN ---
PROGRESS NOTE DATE OF SERVICE: 10/25/2019 REASON FOR FOLLOWUP: Secondary peritonitis from perforated diverticulitis. INTERVAL HISTORY: The patient is currently afebrile. Patient is breathing comfortably. Abdominal pain is currently controlled. She is complaining of nausea, no vomiting. No chest pain, shortness of breath or cough. PHYSICAL EXAMINATION: Blood pressure 124/79 with pulse of 68, temperature 99.5. She is 98% on room air. General description is an elderly female, lying in bed in no distress. RESPIRATORY SYSTEM: Unlabored breathing, clear to auscultation anteriorly. HEART: S1, S2. Regular rate and rhythm. ABDOMEN: Soft, no tenderness. LABS: White count 8.7, BUN of 4, creatinine 0.68. Blood culture negative. DIAGNOSTIC IMPRESSION AND PLAN: Patient with secondary peritonitis from perforated sigmoid, status post diverting colostomy. Patient is covered with Zosyn to continue. Finish therapy with oral Bactrim. Continue supportive care. MMODL / IJN: [id number] /
[2019-10-25] MEDS: LATANOPROST 0.005% OPHTH DROPS 2.5 ML BTL BOTH EYES SCH (21:00)
[2019-10-25] MEDS: HYDROmorphone 1 MG/ML 1 ML SYRINGE IVP PRN (22:48)
[2019-10-26] MEDS: TEMAZEPAM 15 MG CAP PO PRN ×2 (00:57→23:21)
[2019-10-26] MEDS: LEVOTHYROXINE 125 MCG TAB PO SCH (05:57)
[2019-10-26] MEDS: PIPERACILLIN-TAZOBACTAM 3.375 GM in SODIUM CHLORIDE 0.9% 100 ML IVPB SCH ×3 (05:58→20:54)
[2019-10-26] MEDS: amLODIPine 5 MG TAB PO SCH (09:25)
[2019-10-26] MEDS: CYANOCOBALAMIN 500 MCG TAB PO SCH (09:26)
[2019-10-26] MEDS: GABAPENTIN 100 MG CAP PO SCH (09:26)
[2019-10-26] MEDS: ZINC SULFATE 220 MG CAP PO SCH (09:26)
[2019-10-26] MEDS: FOLIC ACID 1 MG TAB PO SCH (09:27)
[2019-10-26] MEDS: ANASTROZOLE 1 MG TAB PO SCH (09:27)
[2019-10-26] MEDS: ENOXAPARIN 30 MG/0.3 ML SYRINGE SQ SCH (09:28)
[2019-10-26] MEDS: PANTOPRAZOLE 40 MG/10 ML VIAL IV SCH (09:29)
[2019-10-26 09:34] LABS: Basophils # (A) 0.1 k/uL (0-0.2); Basophils % (A) 1 %; Eosinophils # (A) 0.5 k/uL (0-0.7); Eosinophils % (A) 5 %; HCT 37.8 % (34.0-46.0); HGB 11.7 gm/dL (11.4-16.0); Lymphocytes # (A) 0.6 k/uL (1.0-4.8); Lymphocytes % (A) 7 %; MCH 31.3 pg (25.0-35.0); MCV 100.9 fL (80.0-100.0); Macrocytosis Slight; Mean Platelet Volume 7.9; Monocytes # (A) 0.7 k/uL (0-1.0); Monocytes % (A) 7 %; Neutrophils # (A) 7.9 k/uL (1.3-7.7); Neutrophils % (A) 80 %; Platelet Count 410 k/uL (150-450); RBC 3.74 m/uL (3.80-5.40); RDW 13.5 % (11.5-15.5)
[2019-10-26 09:41] LABS: African American GFR (CKD) >90 (>60 ml/min/1.73 sqM); Anion Gap 9 mmol/L; Blood Urea Nitrogen 4 mg/dL (7-17); Calcium 8.4 mg/dL (8.4-10.2); Carbon Dioxide 26 mmol/L (22-30); Chloride 100 mmol/L (98-107); Glucose 103 mg/dL (74-99); Non-African American GFR(CKD) >90 (>60 ml/min/1.73 sqM); Potassium 3.5 mmol/L (3.5-5.1); Sodium 135 mmol/L (137-145)
[2019-10-26] MEDS: ACETAMINOPHEN TAB 325 MG TAB PO PRN (11:02)
--- NOTE | 2019-10-26 13:41 | P.PN ---
<CorinneJazmyne richmond - Last Filed: 10/26/19 13:34> Subjective Progress Note Date: 10/26/19 CHIEF COMPLAINT: Pneumoperitoneum HISTORY OF PRESENT ILLNESS: he patient is a 73 year old female who recently underwent uneventful partial knee arthroplasty less than 5 days ago who developed acute onset abdominal pain. CT of the abdomen and pelvis is consistent with pneumoperitoneum. Patient is status post Exploratory laparotomy with descending colostomy creation, sigmoid colectomy, the flat lens rectum, Fermin's procedure. Abdominal washout 3 L normal saline and Placement of incisional wound VAC system for perforated sigmoid diverticulitis. Patient sitting in bedside chair. She is still reporting right-sided abdominal pain. She is currently tolerating a full liquid diet. Yesterday, patient had some erythema on the lower aspect of the incision. Dr. Best removed 3 lani and evacuated seropurulent fluid. He obtained cultures of fluid. She has stool in her colostomy bag. She does have nausea. No vomiting. She has been up and ambulating. She is afebrile. WBC 10.0. Culture from drainage growing gram-n egative bacilli PHYSICAL EXAM: VITAL SIGNS: Reviewed GENERAL: Well-developed in no acute distress. HEENT: No sclera icterus. Extraocular movements grossly intact. Moist buccal mucosa. Head is atraumatic, normocephalic. Hears conversational speech. No nasal drainage. NECK: Supple without lymphadenopathy. CHEST: Non-labored respirations and equal bilateral excursions. CARDIOVASCULAR: Regular rate with regular rhythm. Palpable 2+ radial pulses. ABDOMEN: Soft. Nondistended. Nontender. Liquidy stool present in colostomy bag. Some shadowing noted at the distal aspect of the dressing. No erythema. MUSCULOSKELETAL: No clubbing or cyanosis. NEUROLOGIC: No focal or lateralizing signs. Cranial nerves II through XII grossly intact. PSYCH: Appropriate affect. Alert and oriented to person, place and time. SKIN: Well perfused. Good skin turgor. ASSESSMENT: 1. Perforated sigmoid diverticulitis status post Exploratory laparotomy with descending colostomy creation, sigmoid colectomy, the flat lens rectum, Fermin's procedure. Abdominal washout and Placement of incisional wound VAC system 2. Present on admission ulcerative colitis 3. Chronic pain syndrome 4. History of skin cancer breast cancer 5. Status post recent partial knee arthroplasty 6. Pre-existing immunosuppression PLAN: - Continue antibiotics - Infectious disease following - Follow up on culture results - Encourage incentive spirometry use - Encourage ambulating - DVT prophylaxis Physician Hunter Guide note has been reviewed by physician. Signing provider agrees with the documented findings, assessment, and plan of care. Objective - Vital Signs Vital signs: Vital Signs Temp 97.9 F 10/26/19 11:48 Pulse 62 10/26/19 11:48 Resp 18 10/26/19 11:48 BP 121/62 10/26/19 11:48 Pulse Ox 96 10/26/19 11:48 Intake & Output 10/25/19 10/26/19 10/26/19 18:59 06:59 18:59 Intake Total 100 Balance 100 Intake: Oral 100 Other: Voiding Method Toilet Toilet Toilet Bedpan Bedpan # Voids 3 2 1 # Bowel Movements 0 - Labs CBC & Chem 7: 10/26/19 08:43 10/26/19 08:43 Labs: Abnormal Lab Results - Last 24 Hours (Table) 10/26/19 10/26/19 Range/Units 08:43 08:43 RBC 3.74 L (3.80-5.40) m/uL MCV 100.9 H (80.0-100.0) fL Neutrophils # 7.9 H (1.3-7.7) k/uL Lymphocytes # 0.6 L (1.0-4.8) k/uL Sodium 135 L (137-145) mmol/L BUN 4 L (7-17) mg/dL Glucose 103 H (74-99) mg/dL Microbiology - Last 24 Hours (Table) 10/25/19 11:43 Gram Stain - Preliminary Abdomen Wound Culture - Preliminary Gram Neg Bacilli <Logan Best - Last Filed: 10/26/19 14:28> Subjective As above. Patient still having some right-sided pain. This was not improved after draining the superficial wound infection. Continue local wound care. Continue antibiotics. Will check CT abdomen and pelvis given the patient's ongoing right-sided pain to rule out intra-abdominal abscess. Objective - Vital Signs Vital signs: Vital Signs Temp 97.9 F 10/26/19 11:48 Pulse 62 10/26/19 11:48 Resp 18 10/26/19 11:48 BP 121/62 10/26/19 11:48 Pulse Ox 96 10/26/19 11:48 Intake & Output 10/25/19 10/26/19 10/26/19 18:59 06:59 18:59 Intake Total 100 Balance 100 Intake: Oral 100 Other: Voiding Method Toilet Toilet Toilet Bedpan Bedpan # Voids 3 2 1 # Bowel Movements 0 - Labs CBC & Chem 7: 10/26/19 08:43 10/26/19 08:43 Labs: Abnormal Lab Results - Last 24 Hours (Table) 10/26/19 10/26/19 Range/Units 08:43 08:43 RBC 3.74 L (3.80-5.40) m/uL MCV 100.9 H (80.0-100.0) fL Neutrophils # 7.9 H (1.3-7.7) k/uL Lymphocytes # 0.6 L (1.0-4.8) k/uL Sodium 135 L (137-145) mmol/L BUN 4 L (7-17) mg/dL Glucose 103 H (74-99) mg/dL Microbiology - Last 24 Hours (Table) 10/25/19 11:43 Gram Stain - Preliminary Abdomen Wound Culture - Preliminary Gram Neg Bacilli Assessment and Plan (1) Sigmoid diverticulitis Current Visit: Yes Status: Acute Code(s): K57.32 - DVTRCLI OF LG INT W/O PERFORATION OR ABSCESS W/O BLEEDING SNOMED Code(s): 081212920
[2019-10-26] MEDS: IOPAMIDOL CONTRAST (ORAL USE) VIAL PO PRN ×2 (15:06→16:05)
--- NOTE | 2019-10-26 15:52 | P.PN ---
Subjective Progress Note Date: 10/26/19 Principal diagnosis: 73 female who is recently status post partial knee arthroplasty, patient presented to [facility] on 10/18/2019 with a one-day history of abdominal pain which was sudden in onset. Was mostly in the lower abdominal area which she described the pain to be sharp and almost 10 out of 10 in severity with no radiation patient has felt nauseated but no vomiting and denies having any diarrhea or constipation with this into the patient was evaluated on arrival to the ER the patient did have low-grade fever 100.2 the patient did have a normal white count patient did have a CT of abdominal pelvis which issues large pneumoperitoneum and air collection seen on the sigmoid colon, patient was taken to the OR she was noticed to have perforated sigmoid diverticulitis patient is status post descending colostomy creation, patient has been treated with the Zosyn her white count was noticed which abduct 15.7 today that has prompted this infection disease consultation 10/21/2019 Patient is seen and evaluated ambulating with physical therapy; denies any complaint of pain; patient did have episode of large emesis this morning and has been maintained nothing by mouth Vital signs remained stable with a temperature of 98.5, pulse 71, respirations 16 and blood pressure 136/74 Lab review shows a white blood count of 13, hemoglobin of 12.3 and platelets of 222; sodium of 136; AST/ALT improved from 71/58 yesterday from 48/44 Surgery is following and patient has been made nothing by mouth again; we will monitor CBC and liver enzymes 10/22/2019 Patient reports he feels improved and ambulating in the hallway with physical therapy; no further nausea and vomiting and does feel somewhat hungry; patient has been passing gas Vital signs remained stable with a temperature of 99, pulse 71 respirations 17 and blood pressure 145/79 Lab review shows a normal white blood count of 8.2, hemoglobin of 10.7, sodium of 134 Surgery is following and recommending advancing diet to full liquids and contin ue ambulation 10/24/2019 Patient is on liquid diet at this time, does have bowel sounds. 09/24/2019 Patient remains on liquid diet today and the patient's abdominal surgical site area appeared to be infected because of which won't cultures were obtained patient was started on Zosyn by general surgery Constitutional: Denied any fatigue denied any fever. Cardio vascular: denied any chest pain, palpitations Gastrointestinal denied any nausea vomiting Pulmonary: Denied any shortness of breath cough Neurologic denied any new focal deficits All inpatient medications were reviewed and appropriate changes in these medications as dictated in the interval history and assessment and plan. 10/26/2019 Patient is seen and evaluated and follow-up currently on a dysphagia level II ground diet low fiber and is tolerating with no reports of nausea or vomiting noted. Patient does have stool noted in the ostomy. Patient appears to have an abdominal surgical site infection and is maintained on IV Zosyn and will continue at this time. Surgery is changing dressings today. Discussed with the patient about continuing to use incentive spirometer at least 10 times every hour while awake along with increasing activity as tolerated. PT/OT is following. Will continue to follow along closely with surgery. White blood count is 10.0 today, hemoglobin is 11.7, sodium is 135, potassium is 3.5, curren t creatinine is 0.62. Review of systems: Constitutional: No reports of fatigue, fever, or chills Cardiovascular: No reports of chest pain or palpitations Respiratory: No reports of shortness of breath or cough GI: No reports of nausea, vomiting, or diarrhea, reports some mild abdominal discomfort around the incision site and towards the right side of the lower abdomen : No reports of dysuria or retention Neurovascular: No reports of weakness or numbness All medications have been reviewed Objective - Vital Signs Vital signs: Vital Signs Temp 97.9 F 10/26/19 11:48 Pulse 62 10/26/19 11:48 Resp 18 10/26/19 11:48 BP 121/62 10/26/19 11:48 Pulse Ox 96 10/26/19 11:48 Intake & Output 10/25/19 10/26/19 10/26/19 18:59 06:59 18:59 Intake Total 100 Balance 100 Intake: Oral 100 Other: Voiding Method Toilet Toilet Toilet Bedpan Bedpan # Voids 3 2 1 # Bowel Movements 0 - Exam GENERAL: The patient is alert and oriented x3, not in any acute distress. Well developed, well nourished. HEENT: Pupils are round and equally reacting to light. EOMI. No scleral icterus. No conjunctival pallor. Normocephalic, atraumatic. No pharyngeal erythema. No thyromegaly. CARDIOVASCULAR: S1 and S2 present. No murmurs, rubs, or gallops. PULMONARY: Chest is clear to auscultation, no wheezing or crackles. ABDOMEN: Soft, nontender, nondistended, normoactive bowel sounds. No palpable organomegaly. Surgical site area was not examined as surgical dressing was recently changed which is dry and intact. Stool noted in the ostomy MUSCULOSKELETAL: No joint swelling or deformity. EXTREMITIES: No cyanosis, clubbing, or pedal edema. NEUROLOGICAL: Gross neurological examination did not reveal any focal deficits. SKIN: No rashes. - Labs CBC & Chem 7: 10/26/19 08:43 10/26/19 08:43 Labs: Abnormal Lab Results - Last 24 Hours (Table) 10/26/19 10/26/19 Range/Units 08:43 08:43 RBC 3.74 L (3.80-5.40) m/uL MCV 100.9 H (80.0-100.0) fL Neutrophils # 7.9 H (1.3-7.7) k/uL Lymphocytes # 0.6 L (1.0-4.8) k/uL Sodium 135 L (137-145) mmol/L BUN 4 L (7-17) mg/dL Glucose 103 H (74-99) mg/dL Microbiology - Last 24 Hours (Table) 10/25/19 11:43 Gram Stain - Preliminary Abdomen Wound Culture - Preliminary Gram Neg Bacilli Assessment and Plan Assessment: Large pneumoperitoneum due to Acute perforated sigmoid diverticulitis. Status post exporter laparotomy and colectomy with colostomy bag placement. Patient is presently on Zosyn is on dysphagia to ground tolerating very well does have bowel sounds Abdominal washout and incisional wound VAC system placement. Possible infection of the surgical site and patient is being continued on just Zosyn wound cultures were obtained, wound cultures preliminary showing gram-negative bacilli Ulcerative colitis currently on Imuran therapy. Hypothyroidism Chronic pain History of breast cancer History of basal cell carcinoma of the skin Recent left knee arthroplasty Obesity with BMI 31.2 DVT prophylaxis Plan: Continue current medications, management, and symptomatic treatment. Patient is maintained on IV antibiotics in the form of Zosyn and will continue at this time. Wound cultures preliminary showing gram-negative bacilli and awaiting for finalization. Patient's diet has been advanced to ground 2 pured and tolerating well. Will continue to follow along closely with surgery. Discussed with the patient about continuing to use incentive spirometer at least 10 times every hour while awake and increasing activity as tolerated. Will repeat a.m. labs. Further recommendations to follow.
--- NOTE | 2019-10-26 16:49 | PN ---
PROGRESS NOTE DATE OF SERVICE: 10/26/2019 REASON FOR FOLLOWUP: Secondary peritonitis from perforated sigmoid diverticulitis. INTERVAL HISTORY: The patient is currently afebrile. The patient is breathing comfortably. Complaining of slight nausea but no vomiting and abdominal discomfort. No chest pain, shortness of breath or cough. Did have an open colostomy. PHYSICAL EXAMINATION: Blood pressure 101/68 with a pulse of 59, temperature 98.3. She is 97% on room air. General description is an elderly female up in the bed in no distress. RESPIRATORY SYSTEM: Unlabored breathing. Clear to auscultation anteriorly. HEART: S1, S2. Regular rate and rhythm. ABDOMEN: Soft. Mildly distended. No guarding or rigidity. LABS: Hemoglobin is 11.6, white count of 10 with a BUN of 4, creatinine 0.62. DIAGNOSTIC IMPRESSION AND PLAN: Patient with secondary peritonitis from perforated sigmoid diverticulitis, status post laparotomy and Nancy's pouch drainage. Culture now showing Gram-negative. Patient is covered with Zosyn. White count normal. Will adjust antibiotic further based on the culture report. Continue with supportive care. MMODL / IJN: [id number] /
--- NOTE | 2019-10-26 17:51 | CT ---
EXAMINATION TYPE: CT abdomen pelvis w con DATE OF EXAM: 10/26/2019 COMPARISON: October 18, 2019 HISTORY: Right-sided pain CT DLP: mGycm Automated exposure control for dose reduction was used. CONTRAST: Performed , patient injected with mL of . Contrast was Isovue 100 mL. Lung bases are clear of consolidation. There is no pleural effusion. There is no pericardial effusion . There is small hiatal hernia. Liver spleen pancreas appear normal. Bile ducts are not dilated. Ther e are clips from cholecystectomy. There is no adrenal mass. Kidneys show satisfactory contrast opacif ication. There is no hydronephrosis. Delayed images show normal renal excretion. There is descending colostomy on the left side of the mid abdomen. There are dilated multiple loops of small bowel that m easure up to 4 cm. Oral contrast does not reach the terminal ileum. The terminal ileum is not dilated . I see no transition point. There are skin lani in the mid abdomen. Appendix is not seen. There i s no sign of thickened appendix. There is no ascites. There is small amount of free fluid in the pelvis. Bladder distends smoothly. Th ere is metal artifact from bilateral hip prosthesis. There is no inguinal hernia. Lumbar vertebra have normal alignment. There is no compression fracture. IMPRESSION: Mild free fluid in the pelvis. There is clearing of most of the free air in the pelvis compared to ol d exam. There is a descending colostomy. Dilated small bowel suggestive of partial mechanical obstruc tion or small bowel ileus. Small bowel is increased compared to old exam.
[2019-10-26] MEDS: LATANOPROST 0.005% OPHTH DROPS 2.5 ML BTL BOTH EYES SCH (20:54)
[2019-10-27] MEDS: LEVOTHYROXINE 125 MCG TAB PO SCH (05:04)
[2019-10-27] MEDS: PIPERACILLIN-TAZOBACTAM 3.375 GM in SODIUM CHLORIDE 0.9% 100 ML IVPB SCH ×2 (05:05→12:23)
[2019-10-27 07:56] LABS: Basophils # (A) 0.1 k/uL (0-0.2); Basophils % (A) 1 %; Eosinophils # (A) 0.5 k/uL (0-0.7); Eosinophils % (A) 5 %; HCT 35.7 % (34.0-46.0); HGB 11.3 gm/dL (11.4-16.0); Lymphocytes % (A) 10 %; MCH 31.4 pg (25.0-35.0); MCHC 31.6 g/dL (31.0-37.0); MCV 99.4 fL (80.0-100.0); Mean Platelet Volume 7.4; Monocytes # (A) 0.6 k/uL (0-1.0); Monocytes % (A) 6 %; Neutrophils % (A) 76 %; Platelet Count 439 k/uL (150-450); RDW 13.4 % (11.5-15.5); WBC 9.2 k/uL (3.8-10.6)
[2019-10-27] MEDS: ANASTROZOLE 1 MG TAB PO SCH (08:20)
[2019-10-27] MEDS: amLODIPine 5 MG TAB PO SCH (08:20)
[2019-10-27] MEDS: GABAPENTIN 100 MG CAP PO SCH (08:21)
[2019-10-27] MEDS: ENOXAPARIN 30 MG/0.3 ML SYRINGE SQ SCH (08:21)
[2019-10-27] MEDS: PANTOPRAZOLE 40 MG/10 ML VIAL IV SCH (08:22)
[2019-10-27] MEDS: ZINC SULFATE 220 MG CAP PO SCH (08:22)
[2019-10-27] MEDS: FOLIC ACID 1 MG TAB PO SCH (08:22)
[2019-10-27] MEDS: CYANOCOBALAMIN 500 MCG TAB PO SCH (08:22)
[2019-10-27 08:29] LABS: African American GFR (CKD) >90 (>60 ml/min/1.73 sqM); Anion Gap 7 mmol/L; Blood Urea Nitrogen 3 mg/dL (7-17); Calcium 8.2 mg/dL (8.4-10.2); Carbon Dioxide 29 mmol/L (22-30); Chloride 100 mmol/L (98-107); Glucose 89 mg/dL (74-99); Non-African American GFR(CKD) 89 (>60 ml/min/1.73 sqM); Potassium 3.7 mmol/L (3.5-5.1); Sodium 136 mmol/L (137-145)
--- NOTE | 2019-10-27 13:31 | P.PN ---
<Jazmyne Menon - Last Filed: 10/27/19 13:17> Subjective Progress Note Date: 10/27/19 CHIEF COMPLAINT: Pneumoperitoneum HISTORY OF PRESENT ILLNESS: he patient is a 73 year old female who recently underwent uneventful partial knee arthroplasty less than 5 days ago who developed acute onset abdominal pain. CT of the abdomen and pelvis is consistent with pneumoperitoneum. Patient is status post Exploratory laparotomy with descending colostomy creation, sigmoid colectomy, the flat lens rectum, Fermin's procedure. Abdominal washout 3 L normal saline and Placement of incisional wound VAC system for perforated sigmoid diverticulitis. Patient is lying in bed comfortably. She does report still having right-sided abdominal pain. She denies any nausea or vomiting. She is tolerating a dysphagia ground diet. She has stool in her colostomy. She is afebrile. WBC 9.2 Her culture from the drainage from her incision is growing gram-negative bacilli. Computed tomography scan of the abdomen and pelvis reviewed by Dr. Best PHYSICAL EXAM: VITAL SIGNS: Reviewed GENERAL: Well-developed in no acute distress. HEENT: No sclera icterus. Extraocular movements grossly intact. Moist buccal mucosa. Head is atraumatic, normocephalic. Hears conversational speech. No nasal drainage. NECK: Supple without lymphadenopathy. CHEST: Non-labored respirations and equal bilateral excursions. CARDIOVASCULAR: Regular rate with regular rhythm. Palpable 2+ radial pulses. ABDOMEN: Soft. Nondistended. Right-sided tenderness with palpation. Liquidy stool present in colostomy bag. Distal aspect of her incision small opening with purulent discharge. Blood also noted on dressing. MUSCULOSKELETAL: No clubbing or cyanosis. NEUROLOGIC: No focal or lateralizing signs. Cranial nerves II through XII grossly intact. PSYCH: Appropriate affect. Alert and oriented to person, place and time. SKIN: Well perfused. Good skin turgor. ASSESSMENT: 1. Perforated sigmoid diverticulitis status post Exploratory laparotomy with descending colostomy creation, sigmoid colectomy, the flat lens rectum, Fermin's procedure. Abdominal washout and Placement of incisional wound VAC system 2. Present on admission ulcerative colitis 3. Chronic pain syndrome 4. History of skin cancer breast cancer 5. Status post recent partial knee arthroplasty 6. Pre-existing immunosuppression PLAN: - Continue antibiotics per ID - Awaiting culture from incision drainage to finalize prior to discharge - Encourage incentive spirometry use - Encourage ambulating - DVT prophylaxis Physician Recycling Program Manager note has been reviewed by physician. Signing provider agrees with the documented findings, assessment, and plan of care. Objective - Vital Signs Vital signs: Vital Signs Temp 97.7 F 10/27/19 12:10 Pulse 65 10/27/19 12:10 Resp 18 10/27/19 12:10 BP 128/79 10/27/19 12:10 Pulse Ox 96 10/27/19 12:10 Intake & Output 10/26/19 10/27/19 10/27/19 18:59 06:59 18:59 Intake Total 480 840 Output Total 200 Balance 480 640 Intake: Intake, IV Titration 840 Amount Piperacillin-Tazobactam 3 200 .375 gm In Sodium Chloride 0.9% 100 ml @ 25 mls/hr IVPB Q8H [facility] Rx#: [id number] Sodium Chloride 0.9% 1, 640 000 ml @ 0 mls/hr IV .STK -[facility] Rx#:[id number] Oral 480 Output: Stool 200 Other: Voiding Method Toilet Toilet # Voids 2 4 # Bowel Movements 2 - Labs CBC & Chem 7: 10/27/19 07:09 10/27/19 07:09 Labs: Abnormal Lab Results - Last 24 Hours (Table) 10/27/19 10/27/19 Range/Units 07:09 07:09 RBC 3.60 L (3.80-5.40) m/uL Hgb 11.3 L (11.4-16.0) gm/dL Sodium 136 L (137-145) mmol/L BUN 3 L (7-17) mg/dL Calcium 8.2 L (8.4-10.2) mg/dL Microbiology - Last 24 Hours (Table) 10/25/19 11:43 Gram Stain - Preliminary Abdomen Wound Culture - Preliminary Gram Neg Bacilli <Logan Best - Last Filed: 10/27/19 13:36> Subjective As above. Patient feeling better. CAT scan was reviewed. Mildly dilated small bowel loops. Likely partly ileus related. Do not suspect bowel obstruction given the ostomy function and lack of nausea and vomiting. Continue local wound care. Possible discharge today if cleared by consultants. Objective - Vital Signs Vital signs: Vital Signs Temp 97.7 F 10/27/19 12:10 Pulse 65 10/27/19 12:10 Resp 18 10/27/19 12:10 BP 128/79 10/27/19 12:10 Pulse Ox 96 10/27/19 12:10 Intake & Output 10/26/19 10/27/19 10/27/19 18:59 06:59 18:59 Intake Total 480 840 Output Total 200 Balance 480 640 Intake: Intake, IV Titration 840 Amount Piperacillin-Tazobactam 3 200 .375 gm In Sodium Chloride 0.9% 100 ml @ 25 mls/hr IVPB Q8H [facility] Rx#: [id number] Sodium Chloride 0.9% 1, 640 000 ml @ 0 mls/hr IV .STK -[facility] Rx#:[id number] Oral 480 Output: Stool 200 Other: Voiding Method Toilet Toilet # Voids 2 4 # Bowel Movements 2 - Labs CBC & Chem 7: 10/27/19 07:09 10/27/19 07:09 Labs: Abnormal Lab Results - Last 24 Hours (Table) 10/27/19 10/27/19 Range/Units 07:09 07:09 RBC 3.60 L (3.80-5.40) m/uL Hgb 11.3 L (11.4-16.0) gm/dL Sodium 136 L (137-145) mmol/L BUN 3 L (7-17) mg/dL Calcium 8.2 L (8.4-10.2) mg/dL Microbiology - Last 24 Hours (Table) 10/25/19 11:43 Gram Stain - Preliminary Abdomen Wound Culture - Preliminary Gram Neg Bacilli Assessment and Plan (1) Sigmoid diverticulitis Current Visit: Yes Status: Acute Code(s): K57.32 - DVTRCLI OF LG INT W/O PERFORATION OR ABSCESS W/O BLEEDING SNOMED Code(s): 625092314
--- NOTE | 2019-10-27 16:29 | P.PN ---
Subjective Progress Note Date: 10/27/19 Principal diagnosis: 73 female who is recently status post partial knee arthroplasty, patient presented to [facility] on 10/18/2019 with a one-day history of abdominal pain which was sudden in onset. Was mostly in the lower abdominal area which she described the pain to be sharp and almost 10 out of 10 in severity with no radiation patient has felt nauseated but no vomiting and denies having any diarrhea or constipation with this into the patient was evaluated on arrival to the ER the patient did have low-grade fever 100.2 the patient did have a normal white count patient did have a CT of abdominal pelvis which issues large pneumoperitoneum and air collection seen on the sigmoid colon, patient was taken to the OR she was noticed to have perforated sigmoid diverticulitis patient is status post descending colostomy creation, patient has been treated with the Zosyn her white count was noticed which abduct 15.7 today that has prompted this infection disease consultation 10/21/2019 Patient is seen and evaluated ambulating with physical therapy; denies any complaint of pain; patient did have episode of large emesis this morning and has been maintained nothing by mouth Vital signs remained stable with a temperature of 98.5, pulse 71, respirations 16 and blood pressure 136/74 Lab review shows a white blood count of 13, hemoglobin of 12.3 and platelets of 222; sodium of 136; AST/ALT improved from 71/58 yesterday from 48/44 Surgery is following and patient has been made nothing by mouth again; we will monitor CBC and liver enzymes 10/22/2019 Patient reports he feels improved and ambulating in the hallway with physical therapy; no further nausea and vomiting and does feel somewhat hungry; patient has been passing gas Vital signs remained stable with a temperature of 99, pulse 71 respirations 17 and blood pressure 145/79 Lab review shows a normal white blood count of 8.2, hemoglobin of 10.7, sodium of 134 Surgery is following and recommending advancing diet to full liquids and contin ue ambulation 10/24/2019 Patient is on liquid diet at this time, does have bowel sounds. 09/24/2019 Patient remains on liquid diet today and the patient's abdominal surgical site area appeared to be infected because of which won't cultures were obtained patient was started on Zosyn by general surgery Constitutional: Denied any fatigue denied any fever. Cardio vascular: denied any chest pain, palpitations Gastrointestinal denied any nausea vomiting Pulmonary: Denied any shortness of breath cough Neurologic denied any new focal deficits All inpatient medications were reviewed and appropriate changes in these medications as dictated in the interval history and assessment and plan. 10/26/2019 Patient is seen and evaluated and follow-up currently on a dysphagia level II ground diet low fiber and is tolerating with no reports of nausea or vomiting noted. Patient does have stool noted in the ostomy. Patient appears to have an abdominal surgical site infection and is maintained on IV Zosyn and will continue at this time. Surgery is changing dressings today. Discussed with the patient about continuing to use incentive spirometer at least 10 times every hour while awake along with increasing activity as tolerated. PT/OT is following. Will continue to follow along closely with surgery. White blood count is 10.0 today, hemoglobin is 11.7, sodium is 135, potassium is 3.5, curren t creatinine is 0.62. Review of systems: Constitutional: No reports of fatigue, fever, or chills Cardiovascular: No reports of chest pain or palpitations Respiratory: No reports of shortness of breath or cough GI: No reports of nausea, vomiting, or diarrhea, reports some mild abdominal discomfort around the incision site and towards the right side of the lower abdomen : No reports of dysuria or retention Neurovascular: No reports of weakness or numbness All medications have been reviewed 10/27/2019 Patient is seen in follow-up with no acute overnight issues. Patient did have an abdominal surgical site infection and infectious disease was following. Patient was maintained on Zosyn although site cultures finalized showing E. coli with ESBL and being transitioned to Invanz. Patient will most likely require IV antibiotics outpatient and a midline is being ordered. Patient states she is going home once stabilized and discharged and will have home care in the outpatient setting. Management and social work following. Currently patient denies any chest pain, shortness of breath, or palpitations. Patient is afebrile. No reports of nausea or vomiting and patient is currently tolerating dysphagia level II ground low fiber diet. Will continue to follow along closely with surgery during hospitalization. Objective - Vital Signs Vital signs: Vital Signs Temp 97.7 F 10/27/19 12:10 Pulse 65 10/27/19 12:10 Resp 18 10/27/19 12:10 BP 128/79 10/27/19 12:10 Pulse Ox 96 10/27/19 12:10 Intake & Output 10/26/19 10/27/19 10/27/19 18:59 06:59 18:59 Intake Total 480 840 Output Total 200 Balance 480 640 Intake: Intake, IV Titration 840 Amount Piperacillin-Tazobactam 3 200 .375 gm In Sodium Chloride 0.9% 100 ml @ 25 mls/hr IVPB Q8H [facility] Rx#: [id number] Sodium Chloride 0.9% 1, 640 000 ml @ 0 mls/hr IV .[facility] Rx#:[id number] Oral 480 Output: Stool 200 Other: Voiding Method Toilet Toilet # Voids 2 4 # Bowel Movements 2 - Exam GENERAL: The patient is alert and oriented x3, not in any acute distress. Well developed, well nourished. HEENT: Pupils are round and equally reacting to light. EOMI. No scleral icterus. No conjunctival pallor. Normocephalic, atraumatic. No pharyngeal erythema. No thyromegaly. CARDIOVASCULAR: S1 and S2 present. No murmurs, rubs, or gallops. PULMONARY: Chest is clear to auscultation, no wheezing or crackles. ABDOMEN: Soft, nontender, nondistended, normoactive bowel sounds. No palpable organomegaly. surgical dressing was recently changed which is dry and intact. Stool noted in the ostomy MUSCULOSKELETAL: No joint swelling or deformity. EXTREMITIES: No cyanosis, clubbing, or pedal edema. NEUROLOGICAL: Gross neurological examination did not reveal any focal deficits. SKIN: No rashes. - Labs CBC & Chem 7: 10/27/19 07:09 10/27/19 07:09 Labs: Abnormal Lab Results - Last 24 Hours (Table) 10/27/19 10/27/19 Range/Units 07:09 07:09 RBC 3.60 L (3.80-5.40) m/uL Hgb 11.3 L (11.4-16.0) gm/dL Sodium 136 L (137-145) mmol/L BUN 3 L (7-17) mg/dL Calcium 8.2 L (8.4-10.2) mg/dL Microbiology - Last 24 Hours (Table) 10/25/19 11:43 Gram Stain - Preliminary Abdomen Wound Culture - Preliminary Gram Neg Bacilli Assessment and Plan Assessment: Large pneumoperitoneum due to Acute perforated sigmoid diverticulitis. Status post exporter laparotomy and colectomy with colostomy bag placement. Patient is presently on Zosyn is on dysphagia 2 ground tolerating very well does have bowel sounds Abdominal washout and incisional wound VAC system placement. Possible infection of the surgical site and patient is being continued on just Zosyn wound cultures were obtained, wound cultures are finalized showing E. coli with ESBL and currently receiving a midline and IV antibiotics transition to Invanz and will likely require outpatient IV antibiotic therapy Ulcerative colitis currently on Imuran therapy. Hypothyroidism Chronic pain History of breast cancer History of basal cell carcinoma of the skin Recent left knee arthroplasty Obesity with BMI 31.2 DVT prophylaxis Plan: Continue current medications, management, and symptomatic treatment. Patient is maintained on IV antibiotics in the form of Invanz as well as wound cultures finalized showing E. coli with ESBL. Patient to receive a midline. Patient's diet has been advanced to ground 2 pured and tolerating well. Will continue to follow along closely with surgery. Discussed with the patient about continuing to use incentive spirometer at least 10 times every hour while awake and increasing activity as tolerated. Will repeat a.m. labs. Case management and social work following as patient may likely require outpatient IV antibiotic therapy and will be continuing with home care in the outpatient setting. Further recommendations to follow.
[2019-10-27] MEDS: ERTAPENEM 1 GM in SODIUM CHLORIDE 0.9% 50 ML IVPB SCH (17:23)
--- NOTE | 2019-10-27 19:32 | PN ---
PROGRESS NOTE DATE OF SERVICE: 10/27/2019 REASON FOR FOLLOWUP: Secondary peritonitis from perforated sigmoid diverticulitis and abdominal wound dehiscence. INTERVAL HISTORY: The patient is currently afebrile. The patient has been breathing comfortably. The patient denies having any chest pain or shortness of breath or cough. No nausea, vomiting. Abdominal pain is currently controlled. Did have output in her colostomy. PHYSICAL EXAMINATION: Blood pressure 128/79 with a pulse of 65, temperature 97.7. She is 96% on room air. General description is an elderly female up in the bed in no distress. RESPIRATORY SYSTEM: Unlabored breathing. Clear to auscultation anteriorly. HEART: S1, S2. Regular rate and rhythm. ABDOMEN: Soft. No tenderness. Wound is currently dressed. LABS: Hemoglobin 11.3, white count 10.2, BUN of 3, creatinine 0.67. Abdominal culture has been finalized with ESBL E coli. DIAGNOSTIC IMPRESSION AND PLAN: Patient with secondary peritonitis from a perforated sigmoid diverticulitis, status post diverting colostomy with abdominal wound dehiscence and drainage. Those cultures are now showing ESBL E coli. We will switch her antibiotic therapy to Invanz 1 gram daily and discontinue Zosyn. She may need midline and a short course of outpatient IV Invanz. This will be discussed further with the surgical team. Hold the discharge today. Continue with supportive care. MMODL / IJN: [id number] /
[2019-10-27] MEDS: LATANOPROST 0.005% OPHTH DROPS 2.5 ML BTL BOTH EYES SCH (20:30)
[2019-10-27] MEDS: TEMAZEPAM 15 MG CAP PO PRN (22:01)
[2019-10-27] MEDS: HYDROmorphone 1 MG/ML 1 ML SYRINGE IVP PRN (22:01)
[2019-10-28] MEDS: LEVOTHYROXINE 125 MCG TAB PO SCH (06:12)
[2019-10-28 07:24] LABS: Basophils # (A) 0.1 k/uL (0-0.2); Basophils % (A) 1 %; Eosinophils # (A) 0.4 k/uL (0-0.7); Eosinophils % (A) 5 %; HCT 36.1 % (34.0-46.0); HGB 11.5 gm/dL (11.4-16.0); Lymphocytes % (A) 11 %; MCH 31.8 pg (25.0-35.0); MCHC 31.9 g/dL (31.0-37.0); MCV 99.7 fL (80.0-100.0); Mean Platelet Volume 7.3; Monocytes # (A) 0.6 k/uL (0-1.0); Monocytes % (A) 7 %; Neutrophils # (A) 6.3 k/uL (1.3-7.7); Neutrophils % (A) 74 %; Platelet Count 456 k/uL (150-450); RBC 3.62 m/uL (3.80-5.40); RDW 13.6 % (11.5-15.5); WBC 8.5 k/uL (3.8-10.6)
[2019-10-28 07:31] LABS: African American GFR (CKD) >90 (>60 ml/min/1.73 sqM); Anion Gap 7 mmol/L; Blood Urea Nitrogen 4 mg/dL (7-17); Carbon Dioxide 27 mmol/L (22-30); Chloride 100 mmol/L (98-107); Glucose 89 mg/dL (74-99); Non-African American GFR(CKD) >90 (>60 ml/min/1.73 sqM); Potassium 3.6 mmol/L (3.5-5.1); Sodium 134 mmol/L (137-145)
[2019-10-28] MEDS: PANTOPRAZOLE 40 MG TABLET PO SCH (08:16)
[2019-10-28] MEDS: GABAPENTIN 100 MG CAP PO SCH (08:16)
[2019-10-28] MEDS: ENOXAPARIN 30 MG/0.3 ML SYRINGE SQ SCH (08:16)
[2019-10-28] MEDS: amLODIPine 5 MG TAB PO SCH (08:16)
[2019-10-28] MEDS: CYANOCOBALAMIN 500 MCG TAB PO SCH (08:16)
[2019-10-28] MEDS: ZINC SULFATE 220 MG CAP PO SCH (08:17)
[2019-10-28] MEDS: ANASTROZOLE 1 MG TAB PO SCH (08:17)
[2019-10-28] MEDS: FOLIC ACID 1 MG TAB PO SCH (08:17)
[2019-10-28] MEDS ORDERED: HYDROcodone/APAP 5-325MG 1 EACH TAB PO PRN (10:40)
--- NOTE | 2019-10-28 11:24 | P.PN ---
Progress Note - Text Progress Note Date: 10/28/19 Patient is resting comfortably in her chair. She denies any significant abdominal and. Peritoneal cultures are still pending. She is set up for a midline IV access today. On exam vital signs are stable. Abdomen soft. Status post Nancy procedure patient will continue receive supportive care. Distally discharged home Wednesday.
--- NOTE | 2019-10-28 13:20 | P.PN ---
Subjective 73 female who is recently status post partial knee arthroplasty, patient presented to [facility] on 10/18/2019 with a one-day history of abdominal pain which was sudden in onset. Was mostly in the lower abdominal area which she described the pain to be sharp and almost 10 out of 10 in severity with no radiation patient has felt nauseated but no vomiting and denies having any diarrhea or constipation with this into the patient was evaluated on arrival to the ER the patient did have low-grade fever 100.2 the patient did pineda ve a normal white count patient did have a CT of abdominal pelvis which issues large pneumoperitoneum and air collection seen on the sigmoid colon, patient was taken to the OR she was noticed to have perforated sigmoid diverticulitis patient is status post descending colostomy creation, patient has been treated with the Zosyn her white count was noticed which abduct 15.7 today that has prompted this infection disease consultation 10/21/2019 Patient is seen and evaluated ambulating with physical therapy; denies any complaint of pain; patient did have episode of large emesis this morning and has been maintained nothing by mouth Vital signs remained stable with a temperature of 98.5, pulse 71, respirations 16 and blood pressure 136/74 Lab review shows a white blood count of 13, hemoglobin of 12.3 and platelets of 222; sodium of 136; AST/ALT improved from 71/58 yesterday from Surgery is following and patient has been made nothing by mouth again; we will monitor CBC and liver enzymes 10/22/2019 Patient reports he feels improved and ambulating in the hallway with physical therapy; no further nausea and vomiting and does feel somewhat hungry; patient has been passing gas Vital signs remained stable with a temperature of 99, pulse 71 respirations 17 and blood pressure 145/79 Lab review shows a normal white blood count of 8.2, hemoglobin of 10.7, sodium of 134 Surgery is following and recommending advancing diet to full liquids and continue ambulation 10/24/2019 Patient is on liquid diet at this time, does have bowel sounds. 09/24/2019 Patient remains on liquid diet today and the patient's abdominal surgical site area appeared to be infected because of which won't cultures were obtained patient was started on Zosyn by general surgery 10/26/2019 Patient is seen and evaluated and follow-up currently on a dysphagia level II ground diet low fiber and is tolerating with no reports of nausea or vomiting noted. Patient does have stool noted in the ostomy. Patient appears to have an abdominal surgical site infection and is maintained on IV Zosyn and will continue at this time. Surgery is changing dressings today. Discussed with the patient about continuing to use incentive spirometer at least 10 times every hour while awake along with increasing activity as tolerated. PT/OT is following. Will continue to follow along closely with surgery. White blood count is 10.0 today, hemoglobin is 11.7, sodium is 135, potassium is 3.5, current creatinine is 0.62. 10/27/2019 Patient is seen in follow-up with no acute overnight issues. Patient did have an abdominal surgical site infection and infectious disease was following. Patient was maintained on Zosyn although site cultures finalized showing E. coli with ESBL and being transitioned to Invanz. Patient will most likely require IV antibiotics outpatient and a midline is being ordered. Patient states she is going home once stabilized and discharged and will have home care in the outpatient setting. Management and social work following. Currently patient denies any chest pain, shortness of breath, or palpitations. Patient is afebrile. No reports of nausea or vomiting and patient is currently tolerating dysphagia level II ground low fiber diet. Will continue to follow along closely with surgery during hospitalization. 10/28/2019 Patient has wound cultures that are showing E. coli which is he is pretty equal and patient is already noted from which is being continued patient will be discharged on Wednesday to subacute rehabilitation patient is feeling much better Constitutional: Denied any fatigue denied any fever. Cardio vascular: denied any chest pain, palpitations Gastrointestinal denied any nausea vomiting Pulmonary: Denied any shortness of breath cough Neurologic denied any new focal deficits All inpatient medications were reviewed and appropriate changes in these medications as dictated in the interval history and assessment and plan. Objective - Vital Signs Vital signs: Vital Signs Temp 98.6 F 10/28/19 07:00 Pulse 67 10/28/19 07:00 Resp 18 10/28/19 07:00 BP 112/67 10/28/19 07:00 Pulse Ox 96 10/28/19 07:00 Intake & Output 10/27/19 10/28/19 10/28/19 18:59 06:59 18:59 Intake Total 600 Output Total 650 3 Balance -50 -3 Weight 87.543 kg Intake: Intake, IV Titration 240 Amount Sodium Chloride 0.9% 1, 240 000 ml @ 0 mls/hr IV .[facility] Rx#:[id number] Oral 360 Output: Urine 250 3 Stool 400 Other: Voiding Method Toilet Toilet # Voids 3 1 - Exam GENERAL: The patient is alert and oriented x3, not in any acute distress. Well developed, well nourished. HEENT: Pupils are round and equally reacting to light. EOMI. No scleral icterus. No conjunctival pallor. Normocephalic, atraumatic. No pharyngeal erythema. No thyromegaly. CARDIOVASCULAR: S1 and S2 present. No murmurs, rubs, or gallops. PULMONARY: Chest is clear to auscultation, no wheezing or crackles. ABDOMEN: Soft, nontender, nondistended, normoactive bowel sounds. No palpable organomegaly. surgical dressing was recently changed which is dry and intact. Stool noted in the ostomy MUSCULOSKELETAL: No joint swelling or deformity. EXTREMITIES: No cyanosis, clubbing, or pedal edema. NEUROLOGICAL: Gross neurological examination did not reveal any focal deficits. SKIN: No rashes. - Labs CBC & Chem 7: 10/28/19 06:37 10/28/19 06:37 Labs: Abnormal Lab Results - Last 24 Hours (Table) 10/28/19 10/28/19 Range/Units 06:37 06:37 RBC 3.62 L (3.80-5.40) m/uL Plt Count 456 H (150-450) k/uL Sodium 134 L (137-145) mmol/L BUN 4 L (7-17) mg/dL Calcium 8.0 L (8.4-10.2) mg/dL Microbiology - Last 24 Hours (Table) 10/25/19 11:43 Gram Stain - Final Abdomen Wound Culture - Final Escherichia coli Assessment and Plan Plan: Large pneumoperitoneum due to Acute perforated sigmoid diverticulitis. Status post exporter laparotomy and colectomy with colostomy bag placement. Patient is presently on Zosyn is on dysphagia 2 ground tolerating very well does have bowel sounds Abdominal washout and incisional wound VAC system placement. Possible infection of the surgical site and patient is being continued on just Zosyn wound cultures were obtained, wound cultures are finalized showing E. coli with ESBL and currently receiving a midline and IV antibiotics transition to [facility] and will likely require outpatient IV antibiotic therapy Ulcerative colitis currently on Imuran therapy. Hypothyroidism Chronic pain History of breast cancer History of basal cell carcinoma of the skin Recent left knee arthroplasty Obesity with BMI 31.2 DVT prophylaxis
[2019-10-28] MEDS: ERTAPENEM 1 GM in SODIUM CHLORIDE 0.9% 50 ML IVPB SCH (17:36)
--- NOTE | 2019-10-28 18:12 | PN ---
PROGRESS NOTE DATE OF SERVICE: 10/28/2019 REASON FOR FOLLOWUP: Secondary peritonitis from perforated diverticulitis and abdominal wound infection with ESBL E coli. INTERVAL HISTORY: Patient is currently afebrile. Patient is feeling better today. The patient denies any nausea, vomiting. No chest pain, shortness of breath or cough. Abdominal pain is currently controlled. PHYSICAL EXAMINATION: Blood pressure 119/76 with a pulse of 84, temperature 98.4. She is 97% on room air. General description is an elderly female lying in bed in no distress. Respiratory system: Unlabored breathing, clear to auscultation anteriorly. Heart S1, S2. Regular rate and rhythm. Abdomen soft, no tenderness. LABS: Hemoglobin 11.5, white count 8.4, BUN of 4, creatinine 0.53. DIAGNOSTIC IMPRESSION AND PLAN: Patient with secondary peritonitis from perforated diverticulitis status post diverting colostomy subsequently abdominal wound infection. Culture positive for ESBL E coli. Patient on Invanz. She will need med line and short course of IV antibiotic and continue with Invanz. Local care per Surgery. Continue supportive care. MMODL / IJN: [id number] /
[2019-10-28] MEDS: HYDROcodone/APAP 5-325MG 1 EACH TAB PO PRN (21:11)
[2019-10-28] MEDS: TEMAZEPAM 15 MG CAP PO PRN (21:11)
[2019-10-28] MEDS: ONDANSETRON 4 MG/2 ML VIAL IVP PRN (21:11)
[2019-10-28] MEDS: LATANOPROST 0.005% OPHTH DROPS 2.5 ML BTL BOTH EYES SCH (21:15)
[2019-10-29] MEDS: LEVOTHYROXINE 125 MCG TAB PO SCH (05:47)
[2019-10-29] MEDS: ENOXAPARIN 30 MG/0.3 ML SYRINGE SQ SCH (07:32)
[2019-10-29] MEDS: PANTOPRAZOLE 40 MG TABLET PO SCH (07:32)
[2019-10-29] MEDS: ANASTROZOLE 1 MG TAB PO SCH (07:32)
[2019-10-29] MEDS: GABAPENTIN 100 MG CAP PO SCH (07:32)
[2019-10-29] MEDS: amLODIPine 5 MG TAB PO SCH (07:32)
[2019-10-29] MEDS: CYANOCOBALAMIN 500 MCG TAB PO SCH (07:36)
[2019-10-29] MEDS: ZINC SULFATE 220 MG CAP PO SCH (07:36)
[2019-10-29] MEDS: FOLIC ACID 1 MG TAB PO SCH (07:36)
--- NOTE | 2019-10-29 09:57 | P.PN ---
Progress Note - Text Progress Note Date: 10/29/19 The patient's a well. She's ablating the hallway. On exam her vital signs are stable. Abdomen soft. Status post from procedure. Patient will be most likely discharge home tomorrow.
--- NOTE | 2019-10-29 10:17 | P.PN ---
Subjective 73 female who is recently status post partial knee arthroplasty, patient presented to [facility] on 10/18/2019 with a one-day history of abdominal pain which was sudden in onset. Was mostly in the lower abdominal area which she described the pain to be sharp and almost 10 out of 10 in severity with no radiation patient has felt nauseated but no vomiting and denies having any diarrhea or constipation with this into the patient was evaluated on arrival to the ER the patient did have low-grade fever 100.2 the patient did pineda ve a normal white count patient did have a CT of abdominal pelvis which issues large pneumoperitoneum and air collection seen on the sigmoid colon, patient was taken to the OR she was noticed to have perforated sigmoid diverticulitis patient is status post descending colostomy creation, patient has been treated with the Zosyn her white count was noticed which abduct 15.7 today that has prompted this infection disease consultation 10/21/2019 Patient is seen and evaluated ambulating with physical therapy; denies any complaint of pain; patient did have episode of large emesis this morning and has been maintained nothing by mouth Vital signs remained stable with a temperature of 98.5, pulse 71, respirations 16 and blood pressure 136/74 Lab review shows a white blood count of 13, hemoglobin of 12.3 and platelets of 222; sodium of 136; AST/ALT improved from 71/58 yesterday from Surgery is following and patient has been made nothing by mouth again; we will monitor CBC and liver enzymes 10/22/2019 Patient reports he feels improved and ambulating in the hallway with physical therapy; no further nausea and vomiting and does feel somewhat hungry; patient has been passing gas Vital signs remained stable with a temperature of 99, pulse 71 respirations 17 and blood pressure 145/79 Lab review shows a normal white blood count of 8.2, hemoglobin of 10.7, sodium of 134 Surgery is following and recommending advancing diet to full liquids and continue ambulation 10/24/2019 Patient is on liquid diet at this time, does have bowel sounds. 09/24/2019 Patient remains on liquid diet today and the patient's abdominal surgical site area appeared to be infected because of which won't cultures were obtained patient was started on Zosyn by general surgery 10/26/2019 Patient is seen and evaluated and follow-up currently on a dysphagia level II ground diet low fiber and is tolerating with no reports of nausea or vomiting noted. Patient does have stool noted in the ostomy. Patient appears to have an abdominal surgical site infection and is maintained on IV Zosyn and will continue at this time. Surgery is changing dressings today. Discussed with the patient about continuing to use incentive spirometer at least 10 times every hour while awake along with increasing activity as tolerated. PT/OT is following. Will continue to follow along closely with surgery. White blood count is 10.0 today, hemoglobin is 11.7, sodium is 135, potassium is 3.5, current creatinine is 0.62. 10/27/2019 Patient is seen in follow-up with no acute overnight issues. Patient did have an abdominal surgical site infection and infectious disease was following. Patient was maintained on Zosyn although site cultures finalized showing E. coli with ESBL and being transitioned to Invanz. Patient will most likely require IV antibiotics outpatient and a midline is being ordered. Patient states she is going home once stabilized and discharged and will have home care in the outpatient setting. Management and social work following. Currently patient denies any chest pain, shortness of breath, or palpitations. Patient is afebrile. No reports of nausea or vomiting and patient is currently tolerating dysphagia level II ground low fiber diet. Will continue to follow along closely with surgery during hospitalization. 10/28/2019 Patient has wound cultures that are showing E. coli which is he is pretty equal and patient is already noted from which is being continued patient will be discharged on Wednesday to subacute rehabilitation patient is feeling much better 10/29/2019 Patient's serum sodium is fairly stable patient is having bowel movements possibility of discharge tomorrow after PICC line placement in the IV antibiotics Constitutional: Denied any fatigue denied any fever. Cardio vascular: denied any chest pain, palpitations Gastrointestinal denied any nausea vomiting Pulmonary: Denied any shortness of breath cough Neurologic denied any new focal deficits All inpatient medications were reviewed and appropriate changes in these medications as dictated in the interval history and assessment and plan. Objective - Vital Signs Vital signs: Vital Signs Temp 98.1 F 10/29/19 07:00 Pulse 61 10/29/19 07:00 Resp 17 10/29/19 07:00 BP 124/69 10/29/19 07:00 Pulse Ox 94 L 10/29/19 07:00 Intake & Output 10/28/19 10/29/19 10/29/19 18:59 06:59 18:59 Intake Total 250 640 Output Total 3 450 Balance 247 190 Intake: Intake, IV Titration 200 Amount Sodium Chloride 0.9% 1, 200 000 ml @ 0 mls/hr IV .[facility] A/S ONE Rx#:[id number] Oral 250 440 Output: Urine 3 250 Stool 200 Other: Voiding Method Toilet Toilet # Voids 4 1 2 - Exam GENERAL: The patient is alert and oriented x3, not in any acute distress. Well developed, well nourished. HEENT: Pupils are round and equally reacting to light. EOMI. No scleral icterus. No conjunctival pallor. Normocephalic, atraumatic. No pharyngeal erythema. No thyromegaly. CARDIOVASCULAR: S1 and S2 present. No murmurs, rubs, or gallops. PULMONARY: Chest is clear to auscultation, no wheezing or crackles. ABDOMEN: Soft, nontender, nondistended, normoactive bowel sounds. No palpable organomegaly. surgical dressing was recently changed which is dry and intact. Stool noted in the ostomy MUSCULOSKELETAL: No joint swelling or deformity. EXTREMITIES: No cyanosis, clubbing, or pedal edema. NEUROLOGICAL: Gross neurological examination did not reveal any focal deficits. SKIN: No rashes. - Labs CBC & Chem 7: 10/28/19 06:37 10/28/19 06:37 Labs: Microbiology - Last 24 Hours (Table) 10/25/19 11:43 Gram Stain - Final Abdomen Wound Culture - Final Escherichia coli Assessment and Plan Plan: Large pneumoperitoneum due to Acute perforated sigmoid diverticulitis. Status post exporter laparotomy and colectomy with colostomy bag placement. Patient is presently on Zosyn is on dysphagia 2 ground tolerating very well does have bowel sounds Abdominal washout and incisional wound VAC system placement. Possible infection of the surgical site and patient is being continued on just Zosyn wound cultures were obtained, wound cultures are finalized showing E. coli with ESBL and currently receiving a midline and IV antibiotics [facility] and will likely require outpatient IV antibiotic therapy Ulcerative colitis currently on Imuran therapy. Hypothyroidism Chronic pain History of breast cancer History of basal cell carcinoma of the skin Recent left knee arthroplasty Obesity with BMI 31.2 DVT prophylaxis
[2019-10-29] MEDS: ERTAPENEM 1 GM in SODIUM CHLORIDE 0.9% 50 ML IVPB SCH (17:44)
[2019-10-29] MEDS: LATANOPROST 0.005% OPHTH DROPS 2.5 ML BTL BOTH EYES SCH (20:43)
[2019-10-29] MEDS: HYDROcodone/APAP 5-325MG 1 EACH TAB PO PRN (22:00)
[2019-10-29] MEDS: TEMAZEPAM 15 MG CAP PO PRN (22:00)
[2019-10-30] MEDS: LEVOTHYROXINE 125 MCG TAB PO SCH (06:09)
[2019-10-30] MEDS: PANTOPRAZOLE 40 MG TABLET PO SCH (07:52)
[2019-10-30] MEDS: GABAPENTIN 100 MG CAP PO SCH (07:52)
[2019-10-30] MEDS: amLODIPine 5 MG TAB PO SCH (07:52)
[2019-10-30] MEDS: ANASTROZOLE 1 MG TAB PO SCH (07:52)
[2019-10-30] MEDS: ENOXAPARIN 30 MG/0.3 ML SYRINGE SQ SCH (07:52)
[2019-10-30] MEDS: ZINC SULFATE 220 MG CAP PO SCH (08:04)
[2019-10-30] MEDS: CYANOCOBALAMIN 500 MCG TAB PO SCH (08:04)
[2019-10-30] MEDS: FOLIC ACID 1 MG TAB PO SCH (08:04)
[2019-10-30 08:08] VITALS: RESP 17
--- NOTE | 2019-10-30 12:05 | PN ---
PROGRESS NOTE DATE OF SERVICE: 10/29/2019 REASON FOR FOLLOW UP: Secondary peritonitis and abdominal wound infection. INTERVAL HISTORY: Patient is currently afebrile. The patient is feeling better. Breathing comfortably. The patient denies having any chest pain. No shortness of breath. No cough. No nausea, no vomiting. No abdominal pain. PHYSICAL EXAMINATION: Blood pressure 108/60 with a pulse of 64, temperature 98.2. She is 98% on room air. General description: The patient is an elderly female lying in bed in no distress. Respiratory system: Unlabored breathing, clear to auscultation anteriorly. Heart S1, S2. Regular rate and rhythm. ABDOMEN: Soft, no tenderness. Wound is currently dressed. No drainage on the dressing. LABS: Hemoglobin 11.5, white count 8.5, BUN of 4, creatinine 0.53. DIAGNOSTIC IMPRESSION/PLAN: Patient with secondary peritonitis from perforated pneumonitis, status post diverting colostomy. Subsequent abdominal wound infection with an ESBL E coli. Patient is covered with Invanz. She will get a mid line tomorrow to continue with IV Invanz for another 7-10 days. Local care with Aquacel Silver dressing. Continue supportive care. MMODL / IJN: [id number] /
--- NOTE | 2019-10-30 12:37 | P.DS ---
<Jazmyne Menon - Last Filed: 10/30/19 12:33> Providers Expected date of discharge: 10/30/19 Hospital Course: Discharge diagnosis 1. Perforated sigmoid diverticulitis status post Exploratory laparotomy with descending colostomy creation, sigmoid colectomy, the flat lens rectum, Fermin's procedure. Abdominal washout and Placement of incisional wound VAC system 2. Present on admission ulcerative colitis 3. Chronic pain syndrome 4. History of skin cancer breast cancer 5. Status post recent partial knee arthroplasty 6. Pre-existing immunosuppression 7. Abdominal wound infection at incision site with ESBL E. coli Hospital course The patient is a 73 year old female who recently underwent uneventful partial knee arthroplasty who developed acute onset abdominal pain. CT of the abdomen and pelvis is consistent with pneumoperitoneum. Patient is status post Exploratory laparotomy with descending colostomy creation, sigmoid colectomy, the flat lens rectum, Fermin's procedure. Abdominal washout 3 L normal saline and Placement of incisional wound VAC system for perforated sigmoid diverticulitis. Patient did have some drainage from the distal incision site. This was cultured and grew ESBL E. coli. She was followed by infectious disease during her hospitalization. Infectious diseases recommending Invanz 1 g IV daily for 11 days at discharge. Patient is afebrile. She's up and ambulating. She is having stool through her colostomy. She is tolerating diet. Patient is stable for discharge. Physician Cargo Service Supervisor note has been reviewed by physician. Signing provider agrees with the documented findings, assessment, and plan of care. Patient Condition at Discharge: Stable Plan - Discharge Summary Discharge Rx Participant: No New Discharge Prescriptions: New Ertapenem [INVanz] 1 gm IVPB Q24H #11 bag Continue Gabapentin [Neurontin] 100 mg PO DAILY Celecoxib [CeleBREX] 200 mg PO DAILY Temazepam [Restoril] 15 - 30 mg PO HS PRN PRN Reason: Insomnia Folic Acid 1 mg PO DAILY Anastrozole [Arimidex] 1 mg PO DAILY Acetaminophen Tab [Tylenol] 1,000 mg PO Q8H PRN PRN Reason: Pain Aspirin EC [Ecotrin Low Dose] 81 mg PO BID azaTHIOprine [Imuran] 50 mg PO DAILY Cholecalciferol [Vitamin D3 (25 Mcg = 1000 Iu)] 2,000 unit PO DAILY Cyanocobalamin [Vitamin B-12] 500 mcg PO DAILY Ferrous Sulfate [Feosol] 325 mg PO DAILY Latanoprost/Pf [Latanoprost 0.005% Eye Drop] 1 drop BOTH EYES HS Levothyroxine Sodium 125 mcg PO DAILY Magnesium Oxide [Reyna] 500 mg PO DAILY oxyCODONE HCL [oxyCODONE HCL (IR)] 10 mg PO Q4H PRN PRN Reason: Pain Zinc 50 mg PO DAILY Discontinued Dicyclomine [Bentyl] 20 mg PO QID PRN PRN Reason: IBS Ibuprofen [Motrin] 600 mg PO Q8HR PRN PRN Reason: Pain Potassium Gluconate 99 mg PO DAILY Discharge Medication List Anastrozole [Arimidex] 1 mg PO DAILY 08/17/19 [History] Celecoxib [CeleBREX] 200 mg PO DAILY 08/17/19 [History] Folic Acid 1 mg PO DAILY 08/17/19 [History] Gabapentin [Neurontin] 100 mg PO DAILY 08/17/19 [History] Temazepam [Restoril] 15 - 30 mg PO HS PRN 08/17/19 [History] Acetaminophen Tab [Tylenol] 1,000 mg PO Q8H PRN 10/18/19 [History] Aspirin EC [Ecotrin Low Dose] 81 mg PO BID 10/18/19 [History] Cholecalciferol [Vitamin D3 (25 Mcg = 1000 Iu)] 2,000 unit PO DAILY 10/18/19 [H istory] Cyanocobalamin [Vitamin B-12] 500 mcg PO DAILY 10/18/19 [History] Ferrous Sulfate [Feosol] 325 mg PO DAILY 10/18/19 [History] Latanoprost/Pf [Latanoprost 0.005% Eye Drop] 1 drop BOTH EYES HS 10/18/19 [History] Levothyroxine Sodium 125 mcg PO DAILY 10/18/19 [History] Magnesium Oxide [Reyna] 500 mg PO DAILY 10/18/19 [History] Zinc 50 mg PO DAILY 10/18/19 [History] azaTHIOprine [Imuran] 50 mg PO DAILY 10/18/19 [History] oxyCODONE HCL [oxyCODONE HCL (IR)] 10 mg PO Q4H PRN 10/18/19 [History] Ertapenem [INVanz] 1 gm IVPB Q24H #11 bag 10/30/19 [Rx] Follow up Appointment(s)/Referral(s): Aliya Bal DO [Primary Care Provider] - 11/02/19 1:30 pm Natalie Matute MD [STAFF PHYSICIAN] - 11/14/19 10:40 am [facility], [NON-STAFF] - As Needed [facility] [NON-STAFF] - As Needed (Will deliver IV antibiotic to the home tomorrow morning.) Neema Odom MD [STAFF PHYSICIAN] - 1 Week (office will call with appointment time) Patient Instructions/Handouts: Diverticulitis (GEN), Colostomy Care (GEN) Activity/Diet/Wound Care/Special Instructions: Colostomy Care Recommendations for Discharge Transition: Last pouching System Change: 10.30.2019 The following colostomy care supplies will be provided by the hospital for home: Convatec flanges Moldable #[id number] (3 for home) Convatec Pouching system with filter #[id number] (3 for home) No sting prep pads (12) for home Ostomy powder (1) for home Mrs Aldana is the empty the pouching system when the pouch is 1/2 to 1/3 full while sitting on the toilet Mrs Aldana is to change the entire pouching system every 3-5 days or sooner as needed with Home care support. Home care - Please assist Mrs Aldana to set up disposable pouches in 2-3 weeks after discharge from the hospital No lifting over 10 pounds in 4 weeks until Nov 26. May shower. No bath tub soaks for two weeks until Nov 12. Avoid steak, tough meats and seeds such as raspberry seeds. No driving while on narcotics. Discharge Disposition: HOME WITH HOME HEALTH SERVICES <Natalie Matute - Last Filed: 11/01/19 22:10> Providers Date of admission: 10/18/19 19:59 Attending physician: Natalie Matute Consults: 10/18/19 21:51 Consult Physician Routine Consulting Provider: [facility] Consult Reason/Comments: [facility] Do you want consulting provider notified?: Yes 10/19/19 01:40 Consult Physician Routine Consulting Provider: Vasquez Peres Consult Reason/Comments: Medical management Do you want consulting provider notified?: Yes 10/20/19 14:11 Consult Physician Routine Consulting Provider: Neema Odom Consult Reason/Comments: Peritonitis, perforated diverticulitis, Antibiotic management Do you want consulting provider notified?: Yes Primary care physician: Aliya Bal - Discharge Diagnosis(es) (1) Ulcerative colitis Status: Acute (2) History of breast cancer Status: Acute (3) History of skin cancer Status: Acute (4) Hypothyroidism Status: Acute (5) Abnormal EKG Status: Acute (6) Sigmoid diverticulosis Status: Acute (7) Chronic pain syndrome Status: Acute (8) Pneumoperitoneum Status: Acute (9) Perforation of sigmoid colon due to diverticulitis Status: Acute Hospital Course: Please see additional comments below. POSTOPERATIVE DIAGNOSES: 1. Perforated sigmoid diverticulitis 2. Present on admission ulcerative colitis 3. Chronic pain syndrome 4. History of skin cancer breast cancer 5. Status post recent partial knee arthroplasty 6. Pre-existing immunosuppression COURSE: The patient is a 73-year-old female with pre-existing ulcerative colitis, immunosuppression, recent left knee arthroplasty less than 5 days ago who presented acutely with peritonitis, abdominal pain. CT of the abdomen and pelvis confirmed free air. Emergent surgical intervention was described. She underwent Fermin's procedure with diverting descending colostomy including abdominal washout, 3 L normal saline 10/19/2019. Postoperatively, she had expected ileus due to pre-existing condition of perforated sigmoid diverticulitis. Additionally, with the patient's pre-existing immunosuppres ahsan, ulcerative colitis, and contaminated wound from perforated diverticulitis, patient developed drainage and wound infection. Cultures were consistent with multiple antibiotic resistant E. coli resistant Zosyn, Ancef used during her hospital course. Infectious disease was following up with adjustment of her antibiotics as described above for Invanz. Prior to discharge, her pain was controlled. White blood cell count was normal. Patient was tolerating diet. Patient was stable for discharge to rehab. Prior to discharge, I personally changed her dressing of Aquacell AG rope 1 inch 2 in lower abdominal incision followed by 4 x 4 and ABDs and tape. Patient was advised to shower daily with dressing changes daily. Lifting restrictions at minimum for pounds for 4 weeks through 11/18/2019. Roosevelt to be discontinued in 4 weeks following date of surgery. She will continue her pain management as previous described by her orthopedic provider. Procedures: OPERATION: 1. Exploratory laparotomy with sigmoid resection 2. Descending colostomy creation 3. Devitalized rectal stump creation 4. Nancy's procedure for perforated sigmoid colon 5. Peritoneal lavage for abdominal washout 3 L normal saline 6. Placement of incisional wound VAC system PREVENA, Mchenry system
--- NOTE | 2019-10-30 13:02 | PN ---
PROGRESS NOTE DATE OF SERVICE: 10/30/2019 REASON FOR FOLLOWUP: Secondary peritonitis and abdominal wound infection. RECENT HISTORY: Patient is currently afebrile. The patient is feeling better. Breathing comfortably. Denies having any chest pain or cough. No nausea, no vomiting. Abdominal pain is currently controlled. No significant drainage from abdominal wound. PHYSICAL EXAMINATION: Blood pressure 115/74 with a pulse of 65, temperature 98.6, she is 94% on room air. General description is an elderly female lying in bed in no distress. Respiratory system: Unlabored breathing, clear to auscultation anteriorly. Heart S1, S2. Regular rate and rhythm. ABDOMEN: Soft. Abdominal wound packed with Aquacel Silver. No significant surrounding redness. LABS: Hemoglobin 11.5, white count 8.5, BUN of 14, creatinine 0.53. DIAGNOSTIC IMPRESSION AND PLAN: Patient with secondary peritonitis from perforated sigmoid diverticulitis status post diverting colostomy subsequently abdominal wound dehiscence and culture positive for ESBL E coli. The patient is currently on Invanz. Overall clinical improvement to continue for another 10 days. Local wound care with dry Aquacel Silver dressing. Continue supportive care. MMODL / IJN: [id number] /
--- NOTE | 2019-10-30 13:23 | P.PN ---
Subjective 73 female who is recently status post partial knee arthroplasty, patient presented to [facility] on 10/18/2019 with a one-day history of abdominal pain which was sudden in onset. Was mostly in the lower abdominal area which she described the pain to be sharp and almost 10 out of 10 in severity with no radiation patient has felt nauseated but no vomiting and denies having any diarrhea or constipation with this into the patient was evaluated on arrival to the ER the patient did have low-grade fever 100.2 the patient did pineda ve a normal white count patient did have a CT of abdominal pelvis which issues large pneumoperitoneum and air collection seen on the sigmoid colon, patient was taken to the OR she was noticed to have perforated sigmoid diverticulitis patient is status post descending colostomy creation, patient has been treated with the Zosyn her white count was noticed which abduct 15.7 today that has prompted this infection disease consultation 10/21/2019 Patient is seen and evaluated ambulating with physical therapy; denies any complaint of pain; patient did have episode of large emesis this morning and has been maintained nothing by mouth Vital signs remained stable with a temperature of 98.5, pulse 71, respirations 16 and blood pressure 136/74 Lab review shows a white blood count of 13, hemoglobin of 12.3 and platelets of 222; sodium of 136; AST/ALT improved from 71/58 yesterday from Surgery is following and patient has been made nothing by mouth again; we will monitor CBC and liver enzymes 10/22/2019 Patient reports he feels improved and ambulating in the hallway with physical therapy; no further nausea and vomiting and does feel somewhat hungry; patient has been passing gas Vital signs remained stable with a temperature of 99, pulse 71 respirations 17 and blood pressure 145/79 Lab review shows a normal white blood count of 8.2, hemoglobin of 10.7, sodium of 134 Surgery is following and recommending advancing diet to full liquids and continue ambulation 10/24/2019 Patient is on liquid diet at this time, does have bowel sounds. 09/24/2019 Patient remains on liquid diet today and the patient's abdominal surgical site area appeared to be infected because of which won't cultures were obtained patient was started on Zosyn by general surgery 10/26/2019 Patient is seen and evaluated and follow-up currently on a dysphagia level II ground diet low fiber and is tolerating with no reports of nausea or vomiting noted. Patient does have stool noted in the ostomy. Patient appears to have an abdominal surgical site infection and is maintained on IV Zosyn and will continue at this time. Surgery is changing dressings today. Discussed with the patient about continuing to use incentive spirometer at least 10 times every hour while awake along with increasing activity as tolerated. PT/OT is following. Will continue to follow along closely with surgery. White blood count is 10.0 today, hemoglobin is 11.7, sodium is 135, potassium is 3.5, current creatinine is 0.62. 10/27/2019 Patient is seen in follow-up with no acute overnight issues. Patient did have an abdominal surgical site infection and infectious disease was following. Patient was maintained on Zosyn although site cultures finalized showing E. coli with ESBL and being transitioned to Invanz. Patient will most likely require IV antibiotics outpatient and a midline is being ordered. Patient states she is going home once stabilized and discharged and will have home care in the outpatient setting. Management and social work following. Currently patient denies any chest pain, shortness of breath, or palpitations. Patient is afebrile. No reports of nausea or vomiting and patient is currently tolerating dysphagia level II ground low fiber diet. Will continue to follow along closely with surgery during hospitalization. 10/28/2019 Patient has wound cultures that are showing E. coli which is he is pretty equal and patient is already noted from which is being continued patient will be discharged on Wednesday to subacute rehabilitation patient is feeling much better 10/29/2019 Patient's serum sodium is fairly stable patient is having bowel movements possibility of discharge tomorrow after PICC line placement in the IV antibiotics 10/30/2019 Medication reconciliation was done and patient is clinically doing well and is being discharged today and IV antibiotics. Patient was started on low-dose of amlodipine her blood pressure is low normal at this time may not require this medication patient was asked to check the blood pressure at home patient will not be discharged on Norvasc. Constitutional: Denied any fatigue denied any fever. Cardio vascular: denied any chest pain, palpitations Gastrointestinal denied any nausea vomiting Pulmonary: Denied any shortness of breath cough Neurologic denied any new focal deficits All inpatient medications were reviewed and appropriate changes in these medications as dictated in the interval history and assessment and plan. Objective - Vital Signs Vital signs: Vital Signs Temp 98.6 F 10/30/19 07:00 Pulse 65 10/30/19 07:00 Resp 17 10/30/19 07:00 BP 115/74 10/30/19 07:00 Pulse Ox 94 L 10/30/19 07:00 Intake & Output 10/29/19 10/30/19 10/30/19 18:59 06:59 18:59 Intake Total 580 120 Output Total 200 Balance 580 -80 Intake: Oral 580 120 Output: Stool 200 Other: Voiding Method Toilet Toilet # Voids 2 1 2 - Exam GENERAL: The patient is alert and oriented x3, not in any acute distress. Well developed, well nourished. HEENT: Pupils are round and equally reacting to light. EOMI. No scleral icterus. No conjunctival pallor. Normocephalic, atraumatic. No pharyngeal erythema. No thyromegaly. CARDIOVASCULAR: S1 and S2 present. No murmurs, rubs, or gallops. PULMONARY: Chest is clear to auscultation, no wheezing or crackles. ABDOMEN: Soft, nontender, nondistended, normoactive bowel sounds. No palpable organomegaly. surgical dressing was recently changed which is dry and intact. Stool noted in the ostomy MUSCULOSKELETAL: No joint swelling or deformity. EXTREMITIES: No cyanosis, clubbing, or pedal edema. NEUROLOGICAL: Gross neurological examination did not reveal any focal deficits. SKIN: No rashes. - Labs CBC & Chem 7: 10/28/19 06:37 10/28/19 06:37 Assessment and Plan Plan: Large pneumoperitoneum due to Acute perforated sigmoid diverticulitis. Status post exporter laparotomy and colectomy with colostomy bag placement. Patient is on dysphagia 2 ground tolerating very well does have bowel sounds Abdominal washout and incisional wound VAC system placement. wound cultures are finalized showing E. coli with ESBL and patient had a midline and will be discharged with IV antibiotics today Ulcerative colitis currently on Imuran therapy. Hypothyroidism Chronic pain History of breast cancer History of basal cell carcinoma of the skin Recent left knee arthroplasty Obesity with BMI 31.2 DVT prophylaxis
[2019-10-30] MEDS: ERTAPENEM 1 GM in SODIUM CHLORIDE 0.9% 50 ML IVPB SCH (14:03)
[2019-10-30 14:47] VITALS: BP 115/70; PULSE 67; TEMP 98.2
--- NOTE | 2019-10-31 08:59 | CDI ---
Documentation Clarification Form Date: 10/31/19 CDS: Mariposa Harvey RN, CCDS Admit Date: 10/18/2019 Patient Name: Nay Aldana ATTENTION: The Clinical Documentation Specialists (CDI) and [facility] Coding Staff appreciate your assistance in clarifying documentation. Please respond to the clarification below the line at the bottom and electronically sign. The CDI & [facility] Coding staff will review the response and follow-up if needed. Please note: Queries are made part of the Legal Health Record. If you have any questions, please contact the author of the query. Dr. Logan Best MD 10/27/2019 abdominal wound dehiscence is documented in the ID progress notes and continue in subsequent progress notes per ID. On 10/24 it is documented that you removed 3 lani at the lower aspect of the incision. Please provide further clarification. Patients Admitting Diagnosis: Sigmoid Diverticulitis with perforation, Pneumoperitoneum Post-Operative Diagnosis: Same Procedure performed: Exploratory laparotomy with descending colostomy creation, sigmoid colectomy, the flat lens rectum, Fermin's procedure. Abdominal washout, Placement of incision wound VAC system. History/Risk Factors: Colitis, Basal cell carcinoma, Breast CA, Former smoker Clinical Indicators: 73-year-old female present to ED on 10/17 with complaints of worsening left lower quadrant abdominal pain. CT scan of abdomen/pelvis shows free intraperitoneal air. Large pneumoperitoneum air collection seen around the sigmoid colon. This could relate to ruptured diverticulum. 10/18 Operative Findings: perforated mid sigmoid colon, 1 cm perforation 10/24 Surgical progress notes: Increasing erythema lower aspect of incision. At three bedside 3 lani were removed 2 separate areas were opened bluntly and seropurulent fluid was evacuated. Cultures were obtained. Area was then packed with 4x4 gauze. Treatment: Invanz 1 gm IV 10/26-10/29 Zosyn 3.375 gm IV 10/18-10/26 10/24 Local wound care per orders 10/18 Exploratory laparotomy with descending colostomy creation, sigmoid colectomy Fermin's procedure. Abdominal washout 3/L normal saline. Placement of incisional wound VAC system. In order to accurately reflect this patients severity of illness, please clarify if the abdominal wound dehiscence: -has been ruled out -is a complication of surgical procedure -is an expected outcome of the surgical procedure -is related to co-morbid condition(s) of (specify) -Other please specify -Unable to determine (Last Revision: March 2019) the patient's abdominal wound was intentionally created. The patient's midline wound infection was an expected complication of the surgical procedure. No spontaneous dehiscence. MTDD
--- NOTE | 2019-10-31 09:45 | CDI ---
Documentation Clarification Form Date: 10/30/2019 CDS: Mariposa Harvey RN, CCDS Admit Date: 10/18/2019 Discharge Date: 10/30/2019 Patient Name: Nay Aldana ATTENTION: The Clinical Documentation Specialists (CDI) and [facility] Coding Staff appreciate your assistance in clarifying documentation. Please respond to the clarification below the line at the bottom and electronically sign. The CDI & [facility] Coding staff will review the response and follow-up if needed. Please note: Queries are made part of the Legal Health Record. If you have any questions, please contact the author of this message via ITS. Dr. Natalie Matute 10/29 Abdominal wound infection at incision site, with ESBL E coli, is documented in the discharge summary, and ongoing surgical, ID and internal medicine progress notes starting on 10/24.. Please provide further specificity and clinical indications for this documentation/diagnosis. Patients Admitting Diagnosis: Sigmoid Diverticulitis with perforation, Pneumoperitoneum Post-Operative Diagnosis: Same Procedure performed: Exploratory laparotomy with descending colostomy creation, sigmoid colectomy, the flat lens rectum, Fermin's procedure. Abdominal washout, Placement of incision wound VAC system. History/Risk Factors: Colitis, Basal cell carcinoma, Breast CA, Former smoker Clinical Indicators: 73-year-old female present to ED on 10/17 with complaints of worsening left lower quadrant abdominal pain. CT scan of abdomen/pelvis shows free intraperitoneal air. Large pneumoperitoneum air collection seen around the sigmoid colon. This could relate to ruptured diverticulum. 10/18 Operative Findings: perforated mid sigmoid colon, 1 cm perforation 10/24 Surgical progress notes: Increasing erythema lower aspect of incision. At three bedside 3 lani were removed 2 separate areas were opened bluntly and seropurulent fluid was evacuated. Cultures were obtained. Area was then packed with 4x4 gauze. 10/26 ID (Dr. Odom) Patient with secondary peritonitis from a perforated sigmoid diverticulitis, status post diverting colostomy with abdominal wound dehiscence and drainage. Those culture are now growing ESBL E coli. Antibiotic therapy to Invanz 1 gram daily and discontinue Zosyn. Treatment: Invanz 1 gm IV 10/26 continue iv daily for 11 days at discharge. Zosyn 3.375 gm IV 10/18-10/26 10/24 Local wound care per orders 10/18 Exploratory laparotomy with descending colostomy creation, sigmoid colectomy Fermin's procedure. Abdominal washout 3/L normal saline. Placement of incisional wound VAC system. In order to accurately reflect this patients severity of illness, please clarify if the abdominal wound infection at the incision site with ESBL E.coli: -is a complication of surgical procedure -is an expected outcome of the surgical procedure -is related to co-morbid condition(s) of -Other please specify -Unable to determine (Last Revision: March 2019) -is related to co-morbid condition(s) of Chronic immunosuppression, perforated diverticulitis with dirty contaminated case Patient found to have resistance to all antibiotics given during treatment hence related to her comorbid conditions for surgical site infection KM 11/01/19 @ 19:40 JACK
== END 2019-10-30 16:23 | disposition home health service (06) | DRG 329 ==
LOC: EC 17:48 → 4SSUR 19:59
PROVIDERS: ADMIT Surgery Plastic and Reconstructive Surgery; ATTEND Surgery Plastic and Reconstructive Surgery
PROC: 0DBN0ZZ Excision of Sigmoid Colon, Open Approach (ICD-10-PCS; principal; 2019-10-19)
PROC: 0D1M0Z4 Bypass Descending Colon to Cutaneous, Open Approach (ICD-10-PCS; 2019-10-19)
PROC: 05HB33Z Insertion of Infusion Device into Right Basilic Vein, Percutaneous Approach (ICD-10-PCS; 2019-10-30)
DX: K57.20 Diverticulitis of large intestine with perforation and abscess without bleeding (principal); K65.9 Peritonitis, unspecified; Q43.8 Other specified congenital malformations of intestine; K51.90 Ulcerative colitis, unspecified, without complications; Z16.12 Extended spectrum beta lactamase (ESBL) resistance; G89.4 Chronic pain syndrome; E03.9 Hypothyroidism, unspecified; M19.90 Unspecified osteoarthritis, unspecified site; E66.9 Obesity, unspecified; E87.6 Hypokalemia; I10 Essential (primary) hypertension; L08.9 Local infection of the skin and subcutaneous tissue, unspecified; R94.31 Abnormal electrocardiogram [ECG] [EKG]; B96.20 Unspecified Escherichia coli [E. coli] as the cause of diseases classified elsewhere; Z68.31 Body mass index [BMI] 31.0-31.9, adult; Z71.3 Dietary counseling and surveillance; Z79.899 Other long term (current) drug therapy; Z79.1 Long term (current) use of non-steroidal anti-inflammatories (NSAID); Z79.811 Long term (current) use of aromatase inhibitors; Z79.890 Hormone replacement therapy; Z85.828 Personal history of other malignant neoplasm of skin; Z85.3 Personal history of malignant neoplasm of breast; Z90.49 Acquired absence of other specified parts of digestive tract; Z98.890 Other specified postprocedural states; Z87.891 Personal history of nicotine dependence; Z96.652 Presence of left artificial knee joint; Z88.1 Allergy status to other antibiotic agents
CPT/HCPCS: 36410; 36415; 74177; 76937; 80048; 80053; 81001; 83690; 84132; 85025; 87040; 87070; 87077; 87186; 87205; 88307; 93005; 96374; 96375; 99285

== ENCOUNTER 2019-12-21 08:42 | Day surgery (SDC) | payer MEDICARE, OTHER ==
[2019-12-20 09:15] VITALS: BMI 28.8
--- NOTE | 2019-12-21 07:40 | P.GSHP ---
History of Present Illness H&P Date: 12/21/19 CHIEF COMPLAINT: Colon screen HISTORY OF PRESENT ILLNESS: The patient is a 74-year-old female who presents for colon screen. Lower endoscopy was offered for further evaluation and management. PAST MEDICAL HISTORY: Please see list. PAST SURGICAL HISTORY: Please see list. MEDICATIONS: Please see list. ALLERGIES: Please see list. SOCIAL HISTORY: No illicit drug use FAMILY HISTORY: No reports of Crohn disease or ulcerative colitis. REVIEW OF ORGAN SYSTEMS: CONSTITUTIONAL: No reports of fevers or chills. PHYSICAL EXAM: VITAL SIGNS: Stable GENERAL: Well-developed pleasant in no acute distress. HEENT: No scleral icterus. Extraocular movements grossly intact. Moist buccal mucosa. NECK: Supple without lymphadenopathy. CHEST: Unlabored respirations. Equal bilateral excursions. CARDIOVASCULAR: Regular rate and rhythm. Distal 2+ pulses. ABDOMEN: Soft, nontender, nondistended. MUSCULOSKELETAL: No clubbing, cyanosis, or edema. ASSESSMENT: 1. Colon screen. PLAN: 1. Recommend proceeding with a lower endoscopy Past Medical History Past Medical History: Cancer, Eye Disorder, Osteoarthritis (OA) Additional Past Medical History / Comment(s): Basal Cell Carcinoma (left side chest), Squamous Cell CA (right side of chest). Skin CA on nose, left shoulder left side of head and right shoulder. 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 MILLER, BILAT CATARACT REMOVAL WITH LENS IMPLANTS, RT ROTATOR CUFF REPAIR Past Anesthesia/Blood Transfusion Reactions: No Reported Reaction Smoking Status: Former smoker - Past Family History Father History Unknown: Yes Medications and Allergies Home Medications Medication Instructions Recorded Confirmed Type Anastrozole [Arimidex] 1 mg PO DAILY 08/17/19 12/20/19 History Folic Acid 1 mg PO DAILY 08/17/19 12/20/19 History Gabapentin [Neurontin] 100 mg PO DAILY 08/17/19 12/20/19 History Temazepam [Restoril] 15 - 30 mg PO HS PRN 08/17/19 12/20/19 History Acetaminophen Tab [Tylenol] 1,000 mg PO Q8H PRN 10/18/19 12/20/19 History Cholecalciferol [Vitamin D3 (25 2,000 unit PO DAILY 10/18/19 12/20/19 History Mcg = 1000 Iu)] Cyanocobalamin [Vitamin B-12] 500 mcg PO DAILY 10/18/19 12/20/19 History Ferrous Sulfate [Feosol] 325 mg PO DAILY 10/18/19 12/20/19 History Latanoprost/Pf [Latanoprost 0.005% 1 drop BOTH EYES HS 10/18/19 12/20/19 History Eye Drop] Levothyroxine Sodium 125 mcg PO DAILY 10/18/19 12/20/19 History Zinc 50 mg PO DAILY 10/18/19 12/20/19 History azaTHIOprine [Imuran] 50 mg PO DAILY 10/18/19 12/20/19 History Allergies Allergy/AdvReac Type Severity Reaction Status Date / Time vancomycin Allergy Rash/Hives Verified 12/20/19 09:02
[~2019-12-21 08:42] MED LIST changes: +HYDROmorphone 0.5 MG/0.5 ML SYRINGE IVP PRN; -LACTATED RINGERS 1,000 ML IV ONE; +LACTATED RINGERS 1,000 ML IV SCH; +LIDOCAINE 1% (10MG/ML) FOR IV START INTRADERMA PRN; +ONDANSETRON 4 MG/2 ML VIAL IVP ONE
[2019-12-21 09:36] VITALS: RESP 16; TEMP 97.9
[2019-12-21] MEDS ORDERED: PROPOFOL 10 MG/ML 20 ML VIAL IV ONE (09:54)
--- NOTE | 2019-12-21 10:22 | P.PCN ---
Date of Procedure: 12/21/19 Description of Procedure: PREOPERATIVE DIAGNOSIS: History of Fermin's procedure with the defunctionalized rectum History of perforated diverticulitis Descending colostomy status Ulcerative colitis POSTOPERATIVE DIAGNOSIS: History of Fermin's procedure with the defunctionalized rectum History of perforated diverticulitis Descending colostomy status Ulcerative colitis Proctitis Inflammatory polyp, mid transverse colon OPERATION: Colonoscopy through descending colostomy to appendiceal orifice with cold forceps biopsy Flexible sigmoidoscopy through rectum SURGEON: Natalie Matute MD. ANESTHESIA: MAC. INDICATIONS: The patient is a 74-year-old female who presents with history of ulcerative colitis including perforated colon from diverticulitis. She presents for further assessment. Benefits and risks were described and informed consent was obtained. DESCRIPTION OF PROCEDURE: The patient had undergone Suprep. She had been brought into the operating room and laid supine. The stoma appliance was removed. An Olympus colonoscope was advanced through the descending colostomy to the appendiceal orifice. The prep was good. No scattered diverticulosis was encountered. Moderate inflammation mucosa consistent with ulcerative colitis was identified with biopsies obtained of inflammatory polyp at the mid transverse colon. The colon was desufflated. The patient was transitioned in the left lateral decubitus position where along the previous anus, no palpable tumors were identified. An Olympus colonoscope was advanced to the rectum without features of any further diverticulosis. Poor prep was identified. The mucosal perkins was washed. The scope was advanced to 20 cm from the anal verge. The rectum was desufflated. The stoma appliance was applied. The patient had tolerated the procedure well. Withdrawal time was over 6 minutes. FINDINGS: [place] preparation quality scale 2 (1-5) No arteriovenous malformations. Features of ulcerative colitis with inflammatory polyp excised along the transverse colon, 3 mm RECOMMENDATIONS: Lower endoscopy in one year, 2020
[2019-12-21 10:45] VITALS: BP 124/56; PULSE 62
== END 2019-12-21 11:22 | disposition home or self-care (01) ==
LOC: ORWHC2ENDO 08:42
PROVIDERS: ATTEND Surgery Plastic and Reconstructive Surgery
DX: Z12.11 Encounter for screening for malignant neoplasm of colon (principal); K51.90 Ulcerative colitis, unspecified, without complications; K62.89 Other specified diseases of anus and rectum; K51.40 Inflammatory polyps of colon without complications; C50.919 Malignant neoplasm of unspecified site of unspecified female breast; H40.9 Unspecified glaucoma; M19.90 Unspecified osteoarthritis, unspecified site; E07.9 Disorder of thyroid, unspecified; Z93.3 Colostomy status; Z85.828 Personal history of other malignant neoplasm of skin; Z87.19 Personal history of other diseases of the digestive system; Z86.19 Personal history of other infectious and parasitic diseases; Z98.890 Other specified postprocedural states; Z90.49 Acquired absence of other specified parts of digestive tract; Z96.652 Presence of left artificial knee joint; Z96.643 Presence of artificial hip joint, bilateral; Z98.51 Tubal ligation status; Z98.41 Cataract extraction status, right eye; Z98.42 Cataract extraction status, left eye; Z96.1 Presence of intraocular lens; Z87.891 Personal history of nicotine dependence; Z79.811 Long term (current) use of aromatase inhibitors; Z79.899 Other long term (current) drug therapy; Z79.890 Hormone replacement therapy; Z88.1 Allergy status to other antibiotic agents
CPT/HCPCS: 88305; 44389; J2704; G0104

== ENCOUNTER → 2019-12-28 | Outpatient (CLI) | payer MEDICARE, OTHER | END | disposition home or self-care (01) | LOC: LABWHC1 11:21 | PROVIDERS: ATTEND Internal Medicine Gastroenterology | DX: K51.50 Left sided colitis without complications (principal); K63.1 Perforation of intestine (nontraumatic) | CPT/HCPCS: 36415; 86480 ==

== ENCOUNTER → 2019-12-28 | Outpatient (CLI) | payer MEDICARE, OTHER ==
[2019-12-28 11:50] LABS: HGB 13.8 gm/dL (11.4-16.0); MCH 31.6 pg (25.0-35.0); MCHC 31.4 g/dL (31.0-37.0); MCV 100.6 fL (80.0-100.0); Macrocytosis Slight; Mean Platelet Volume 6.9; Platelet Count 292 k/uL (150-450); RBC 4.37 m/uL (3.80-5.40); RDW 14.5 % (11.5-15.5); WBC 4.6 k/uL (3.8-10.6)
[2019-12-28 12:09] LABS: ALT 12 U/L (4-34); AST 24 U/L (14-36); African American GFR (CKD) >90 (>60 ml/min/1.73 sqM); Albumin 4.1 g/dL (3.5-5.0); Alkaline Phosphatase 78 U/L (38-126); Anion Gap 6 mmol/L; Blood Urea Nitrogen 21 mg/dL (7-17); Calcium 9.6 mg/dL (8.4-10.2); Carbon Dioxide 29 mmol/L (22-30); Chloride 103 mmol/L (98-107); Glucose 108 mg/dL (74-99); Non-African American GFR(CKD) 90 (>60 ml/min/1.73 sqM); Potassium 4.4 mmol/L (3.5-5.1); Sodium 138 mmol/L (137-145); Total Bilirubin 0.5 mg/dL (0.2-1.3); Total Protein 7.4 g/dL (6.3-8.2)
== END | disposition home or self-care (01) ==
LOC: LABPAT 10:37
PROVIDERS: ATTEND Surgery Plastic and Reconstructive Surgery
DX: Z01.818 Encounter for other preprocedural examination (principal)
CPT/HCPCS: 80053; 85027; 86850; 86900; 86901

== ENCOUNTER 2020-01-05 07:05 | Inpatient (IN) | payer MEDICARE, OTHER ==
[2020-01-03 08:45] VITALS: BMI 27.7
--- NOTE | 2020-01-05 03:26 | P.GSHP ---
History of Present Illness H&P Date: 01/05/20 CHIEF COMPLAINT: Diverticulitis HISTORY OF PRESENT ILLNESS: The patient is a 74-year-old female who presents with history of ruptured diverticulitis and colostomy. She presents for surgical resection and reversal. PAST MEDICAL HISTORY: See list and reviewed PAST SURGICAL HISTORY: See list and reviewed MEDICATIONS: See list and reviewed ALLERGIES: See list and reviewed SOCIAL HISTORY: See list and reviewed FAMILY HISTORY: See list and reviewed REVIEW OF ORGAN SYSTEMS: CONSTITUTIONAL: No fevers or chills. No recent weight loss. EYES: Denies any trouble with vision. PHYSICAL EXAM: VITALS: Reviewed CONSTITUTIONAL: Well developed and in no acute distress. EYES: Conjuctivae without sclera icterus. Pupils are equally round and reactive to light. Extraocular movements grossly intact. HEAD, EARS, NOSE, THROAT: Moist buccal mucosa. Head is atraumatic, normocephalic. Hears conversational speech. No nasal drainage. NECK: Supple. No JV distention. No thyroidomegaly. RESPIRATORY: Non-labored respirations and equal bilateral excursions. No gross wheezes. CARDIOVASCULAR: Regular rate and rhythm. Extremities without moderate edema. Palpable 2+ radial pulses. ABDOMEN: Soft. No peritonitis. LYMPH: No neck lymphadenopathy. MUSCULOSKELETAL: Nail and fingers with good capillary refill. SKIN: Warm and well perfused with good skin turgor. NEUROLOGIC: Cranial nerves II through XII grossly intact. Sensation upper and extremities intact. No focal or lateralizing signs. PSYCH: Appropriate affect. Alert and oriented to person, place and time. Displays appropriate insight. ASSESSMENT: 1. History of perforated diverticulitis PLAN: 1. Recommend surgical resection for complicated diverticulitis with colostomy reversal via robotic approach possible open Past Medical History Past Medical History: Cancer, Osteoarthritis (OA), Thyroid Disorder Additional Past Medical History / Comment(s): Basal Cell Carcinoma (left side chest), Squamous Cell CA (right side of chest). Skin CA on nose, left shoulder, left side of head and right shoulder. ocular migraines, colitis, left breast cancer-radiation 2017, "very dry skin", "weak bladder" History of Any Multi-Drug Resistant Organisms: ESBL Date of last positivie culture/infection: 10/25/19 MDRO Source:: ESBL ABDOMEN Past Surgical History: Bowel Resection, Breast Surgery, Cholecystectomy, Heart Catheterization, Joint Replacement, Orthopedic Surgery Additional Past Surgical History / Comment(s): COLOSTOMY 10/18/19-R/T BOWEL PERFORATION, LT KNEE REPLACEMENT 10/17/19, COLONOSCOPY, LOVELY hip replacements, BILAT CATARACT REMOVAL WITH LENS IMPLANTS, RT ROTATOR CUFF REPAIR,left breast lumpectomy, heart cath 2009 Past Anesthesia/Blood Transfusion Reactions: No Reported Reaction Smoking Status: Former smoker - Past Family History Father History Unknown: Yes Mother Family Medical History: Cancer Additional Family Medical History / Comment(s): breast cancer Medications and Allergies Home Medications Medication Instructions Recorded Confirmed Type Anastrozole [Arimidex] 1 mg PO DAILY 08/17/19 01/03/20 History Folic Acid 1 mg PO DAILY 08/17/19 01/03/20 History Gabapentin [Neurontin] 100 mg PO DAILY 08/17/19 01/03/20 History Temazepam [Restoril] 30 mg PO HS 08/17/19 01/03/20 History Cholecalciferol [Vitamin D3 (25 2,000 unit PO DAILY 10/18/19 01/03/20 History Mcg = 1000 Iu)] Cyanocobalamin [Vitamin B-12] 500 mcg PO DAILY 10/18/19 01/03/20 History Ferrous Sulfate [Feosol] 325 mg PO DAILY 10/18/19 01/03/20 History Latanoprost/Pf [Latanoprost 0.005% 1 drop BOTH EYES HS 10/18/19 01/03/20 History Eye Drop] Levothyroxine Sodium 125 mcg PO DAILY 10/18/19 01/03/20 History Zinc 50 mg PO DAILY 10/18/19 01/03/20 History azaTHIOprine [Imuran] 50 mg PO DAILY 10/18/19 01/03/20 History Infliximab-Dyyb [Inflectra] 100 mg IV DIRECTED 01/03/20 01/03/20 History Allergies Allergy/AdvReac Type Severity Reaction Status Date / Time vancomycin Allergy Rash/Hives/ Verified 01/03/20 08:29 itching
[~2020-01-05 07:05] MED LIST changes: +ACETAMINOPHEN TAB 500 MG TAB PO PRN; +ALVIMOPAN 12 MG CAPSULE PO PRN; +Antibiotics per Pharmacy 1 EACH MISC MISCELLANE PRN; +DEXAMETHASONE SOD PHOSPHATE 4 MG/ML 1 ML VIAL IV ONE; +GABAPENTIN 300 MG CAP PO STA; +HEPARIN SODIUM,PORCINE 5,000 UNIT/ML 1 ML VIAL SQ ONE; -HYDROmorphone 0.5 MG/0.5 ML SYRINGE IVP PRN; -LACTATED RINGERS 1,000 ML IV SCH; -LIDOCAINE 1% (10MG/ML) FOR IV START INTRADERMA PRN; +MELOXICAM 7.5 MG TAB PO PRN; +MIDAZOLAM 2 MG/2 ML VIAL IV PRN; +metroNIDAZOLE-NS PMX 500 MG in SALINE 1 100ML.BAG IVPB ONE
[2020-01-05] MEDS: LACTATED RINGERS 1,000 ML IV SCH (08:30)
[2020-01-05] MEDS ORDERED: fentaNYL (PF) 50 MCG/ML 2 ML AMP IVP ONE ×2 (08:59)
[2020-01-05] MEDS ORDERED: MIDAZOLAM 2 MG/2 ML VIAL IVP ONE ×2 (08:59)
[2020-01-05] MEDS ORDERED: ROPIVACAINE 5 MG/ML 30 ML VIAL ONE (09:26)
[2020-01-05] MEDS ORDERED: ROCURONIUM 10 MG/ML (10 ML VIAL) IV ONE (09:26)
[2020-01-05] MEDS ORDERED: fentaNYL (PF) 50 MCG/ML 2 ML AMP ONE (09:26)
[2020-01-05] MEDS ORDERED: LIDOCAINE 1% INJ 10MG/ML (20 ML MDV) ONE (09:26)
[2020-01-05] MEDS ORDERED: ePHEDrine SULFATE/0.9% NACL/PF 50 MG/5 ML SYRINGE IV ONE (09:26)
[2020-01-05] MEDS ORDERED: DEXAMETHASONE SOD PHOSPHATE 4 MG/ML 1 ML VIAL ONE (09:26)
[2020-01-05] MEDS ORDERED: ONDANSETRON 4 MG/2 ML VIAL ONE (09:26)
[2020-01-05] MEDS ORDERED: PROPOFOL 10 MG/ML 20 ML VIAL IV ONE (09:26)
[2020-01-05] MEDS ORDERED: MIDAZOLAM 2 MG/2 ML VIAL ONE (09:26)
[2020-01-05] MEDS ORDERED: GLYCOPYRROLATE 0.2 MG/ML 2 ML VIAL ONE (09:26)
[2020-01-05] MEDS ORDERED: FUROSEMIDE 10 MG/ML 2 ML VIAL ONE (09:26)
[2020-01-05] MEDS ORDERED: NEOSTIGMINE 1 MG/ML 10 ML VIAL ONE (09:26)
[2020-01-05] MEDS ORDERED: SUCCINYLCHOLINE CHLORIDE 100 MG/5 ML SYR IV ONE (09:26)
[2020-01-05] MEDS ORDERED: LIDOCAINE 1%-EPI 1:100,000 20 ML VIAL SQ ONE ×2 (10:15)
[2020-01-05] MEDS ORDERED: LACTATED RINGERS 1,000 ML IV ONE ×3 (10:16→14:30)
--- NOTE | 2020-01-05 10:17 | P.ANPRN ---
Procedure Note - Anesthesia - Nerve Block Performed Bilateral Transversus Abdominis Time Out Performed: Yes (:59) Date of Procedure: 01/05/20 Procedure Start Time: Procedure Stop Time: :14 Location of Patient: PreOp Indication: Acute Post-Operative Pain, Requested by Surgeon (Dr Melendez) Sedation Type: Sedate with meaningful contact maintained Preparation: Sterile Prep Position: Supine Catheter: None Needle Types: Pajunk Needle Gauge: 21 Ultrasound used to visualize needle placement: Yes Ultrasound used to observe medication spread: Yes Injectate: 0.5% Ropivacaine (see comment for volume) (15cc each side. [id number] each side) Blood Aspirated: No Pain Paresthesia on Injection Noted: No Resistance on Injection: Normal Image Stored and Saved: Yes Events: Uneventful and Well Tolerated
[2020-01-05] MEDS ORDERED: ONDANSETRON 4 MG/2 ML VIAL IVP PRN (16:22)
--- NOTE | 2020-01-05 16:25 | P.OP ---
Date of Procedure: 01/05/20 Anesthesia: local Description of Procedure: SURGEON: SAMMIE YOUSIF MD PREOPERATIVE DIAGNOSES: 1. Perforated sigmoid diverticulitis with colostomy 2. Present on admission ulcerative colitis 3. Chronic pain syndrome 4. History of skin cancer breast cancer 5. Status post partial knee arthroplasty 6. Pre-existing immunosuppression 7. Hypothyroidism 8. Descending colostomy status POSTOPERATIVE DIAGNOSES: 1. Perforated sigmoid diverticulitis with colostomy 2. Present on admission ulcerative colitis 3. Chronic pain syndrome 4. History of skin cancer breast cancer 5. Status post partial knee arthroplasty 6. Pre-existing immunosuppression 7. Hypothyroidism 8. Severe peritoneal adhesions 9. Peritoneal diverticular abscess, left pelvis with phlegmon 10. Rectal constipation OPERATION: 1. Robotic-assisted daVinci Xi laparoscopic lysis of adhesions over 3 hours 2. Robotic-assisted daVinci Xi laparoscopic drainage of left pelvic/phlegmon from diverticular abscess 3. Rectal lavage, normal saline 4. Intraoperative colonoscopy 5. Robotic-assisted daVinci Xi colostomy reversal with rectal and sigmoid colectomy and low anterior resection using 25 mm ILS 6. Abdominal washout 500 mL normal saline 7. Placement of round #19 drain pelvis, right pelvis 8. Application of incisional wound VAC system 13 cm, PREVENA ostomy site, left lower quadrant Anesthesia: GETA, regional, local Estimated Blood Loss (ml): 100 Pathology: other (rectum, sigmoid colon) Condition: stable Disposition: floor COMPLICATIONS: None. Operative Findings: 1. Left pelvic phlegmon with abscess 5 mL drained 2. Anastomosis with EEA stapler 25 mm 3. No tension or torsion along the anastomosis 4. Doughnuts intact both sides and viable 5. Intra-abdominal peritoneal adhesions omentum including small bowel to abdominal wall completely lysed 6. Small bowel adherent to pelvis lysed 7. Moderate stool found in the rectum evacuated with lavage INDICATIONS: The patient is a 74-year-old female who presents with ruptured sigm oid diverticulitis and colostomy. Benefits and risks of surgical intervention was described in detail including infection, injury to the ureter, colostomy creation, possibility for additional surgery was discussed at length. Informed consent was obtained. All questions of the patient and family were answered. DESCRIPTION: Earlier the patient had undergone a bowel prep using the enhanced colon recovery program. The patient was transferred to the operating room and placed supine. After general induction, the abdomen was prepped and draped in standard sterile fashion. Ioban was placed along the abdomen to minimize any contamination of skin floor. A Banegas catheter was placed. After a timeout protocol was performed, attention was then brought to the left upper quadrant whereby a 0 degree 5 mm laparoscopic trocar entry was performed. The abdominal cavity was entered and insufflated to 15 mmHg pressure, which she tolerated well. Diagnostic laparoscopy confirmed moderate peritoneal adhesions throughout the abdomen. Next a robotic 12-mm trocar was placed along the right lateral abdominal wall. Four trocars were placed along the right lateral abdominal wall. Ports were placed 8 to 10 cm apart from each other including 15-20 cm away from the target anatomy of the left pelvis. The robot was docked along the right lateral abdomen. The patient was positioned in steep Trendelenburg position. Using atraumatic graspers and vessel sealer, the robotic system was docked and primed as described. Instruments were interchanged by the assistant administrator including scissors, needle bookmobile driver, robotic stapler and vessel sealer. The stapler 12-mm port was arranged along the right lateral abdominal wall. Severe peritoneal adhesions were identified of omentum including small bowel to the abdominal wall. Over 3 hours extensive lysis of adhesions using sharp dissection of a scissors including vessel sealer was used to free all peritoneal adhesions. No evidence of incisional hernias were identified. After addressing adhesions, attention was brought to the pelvis which required placement of trochars along the upper abdomen. The robot was temporarily undocked. Additional three 8 mm trochars are placed along the upper abdomen. The robot was docked with the patient in steep reverse Trendelenburg position. A previous Prolene suture was identified of the rectal stump. The small bowel was densely adherent to the left pelvis where a phlegmon containing a small abscess was identified. The small bowel including the rectum was freed after additional dissection. I went to the foot of the bed to inspect the rectum. Digital inspection confirmed presence of stool. A rectal lavage using normal saline over 500 mL was performed to evacuate stool. A colonoscope was entered along the rectum confirming 20 cm length of the remnant. A sizer was used where a 25 mm anvil was selected. I went back to the console for resection of the devitalized rectum incorporating the phlegmon. The proximal rectum was resected using 60 mm black staple loads including green staple loads. The staple line was hemostatic. Attention was brought to the descending colostomy where the descending colon was mobilized along the white line of Toldt. Additional adhesions at the colostomy site was divided using vessel sealer. The fascia of the abdominal defect of the ostomy was oversewn using#1 VLOC nonabsorbable. I scrubbed into the case for placement of the anvil. The robotic arms were undocked. A 25-mm anvil was positioned into the descending colostomy after placing a suture along the anvil underwater welder. I went back to the console where the sigmoid colon was resected at the abdominal wall. The shaft of the anvil was exited via the staple line and the anvil underwater welder was removed. I went to the foot of the bed to place the ILS stapler via the rectum. The anvil and stapler were mated for 1 minute. The doughnuts were intact on both sides and thick. I went back to the console. All needles, and sponges were removed from the abdominal cavity. The robot was undocked. I re-scrubbed into the case. Via the right upper quadrant port, the sigmoid colon was removed using a 15-mm Endo Catch bag. All sponges were confirmed removed from the abdominal cavity. The fascial defect was oversewn using 0 Vicryl and a Nathan Clancy. A round #19 drain was placed right lateral to the anastomosis along the pelvis and exited via the right lateral abdominal wall. A 2-0 nylon stitch was placed. Next all pneumoperitoneum was evacuated from the abdominal cavity. Attention was brought to the ostomy which was resected from the subcutaneous tissue using Bovie cautery. Hemostasis was checked. The wound was cleansed using dilute hydrogen peroxide. The ostomy site was reapproximated using 0 Vicryl for the deep subcutaneous tissue. Skin lani were applied. A 13-cm incisional wound VAC system, PREVNA was placed along the previous ostomy site at the left lower quadrant. The 8-mm trocar sites were reapproximated using 4-0 Monocryl in an interrupted subcuticular fashion. Local anesthetic was infiltrated to all wounds for postop analgesia. All incisions were also cleansed with diluted hydrogen peroxide. An Optifoam surgical dressing was placed at the drain site. A suction bulb was placed along the tubing. Liquid glue was applied to the rest of the skin incisions. The patient had tolerated the procedure well. The patient was extubated successfully. During the procedure, patient noted to have ST changes per anesthesia. Intraoperative photos were reviewed with the patient's family who were overall pleased with the level of care. The patient was transferred to the postanesthesia care unit in stable condition.
[2020-01-05] MEDS: HYDROmorphone 0.5 MG/0.5 ML SYRINGE IVP PRN ×2 (17:00→17:20)
[2020-01-05] MEDS: SODIUM CHLORIDE 0.9% 1,000 ML IV SCH (17:52)
[2020-01-05] MEDS: metroNIDAZOLE-NS PMX 500 MG in SALINE 1 100ML.BAG IVPB SCH (18:22)
[2020-01-05] MEDS: HEPARIN SODIUM,PORCINE 5,000 UNIT/ML 1 ML VIAL SQ SCH (20:13)
[2020-01-05] MEDS: ALVIMOPAN 12 MG CAPSULE PO SCH (20:44)
[2020-01-05] MEDS: LATANOPROST 0.005% OPHTH DROPS 2.5 ML BTL BOTH EYES SCH (20:48)
[2020-01-06] MEDS: metroNIDAZOLE-NS PMX 500 MG in SALINE 1 100ML.BAG IVPB SCH ×3 (02:37→17:22)
[2020-01-06] MEDS: HYDROmorphone 1 MG/ML 1 ML SYRINGE IVP PRN ×2 (02:50→07:34)
[2020-01-06] MEDS: LACTATED RINGERS 1,000 ML IV SCH (06:09)
[2020-01-06] MEDS ORDERED: LEVOTHYROXINE 125 MCG TAB PO SCH (06:30)
[2020-01-06] MEDS: SODIUM CHLORIDE 0.9% 1,000 ML IV SCH ×2 (06:34→19:59)
[2020-01-06 07:09] LABS: Basophils % (A) 0 %; Eosinophils # (A) 0.1 k/uL (0-0.7); Eosinophils % (A) 1 %; HCT 34.5 % (34.0-46.0); HGB 11.7 gm/dL (11.4-16.0); Lymphocytes % (A) 12 %; MCH 33.5 pg (25.0-35.0); MCV 98.6 fL (80.0-100.0); Mean Platelet Volume 7.4; Monocytes # (A) 0.6 k/uL (0-1.0); Monocytes % (A) 7 %; Neutrophils # (A) 6.2 k/uL (1.3-7.7); Neutrophils % (A) 78 %; Platelet Count 212 k/uL (150-450); RDW 14.4 % (11.5-15.5)
[2020-01-06] MEDS: ALVIMOPAN 12 MG CAPSULE PO SCH ×2 (07:27→19:53)
[2020-01-06] MEDS: HEPARIN SODIUM,PORCINE 5,000 UNIT/ML 1 ML VIAL SQ SCH ×2 (07:27→19:57)
[2020-01-06] MEDS: FOLIC ACID 1 MG TAB PO SCH ×2 (07:27→07:32)
--- NOTE | 2020-01-06 07:44 | P.PN ---
Progress Note - Text Progress Note Date: 01/06/20 During procedure, patient noted to have ST changes per anesthesia. Also, new bradycardia with hypotension. Will obtain cardiology consultation, troponin, EKG
[2020-01-06] MEDS ORDERED: GABAPENTIN 100 MG CAP PO SCH (09:00)
[2020-01-06 09:27] LABS: Magnesium 1.6 mg/dL (1.6-2.3)
[2020-01-06] MEDS: ACETAMINOPHEN TAB 500 MG TAB PO SCH ×4 (09:27→23:13)
[2020-01-06] MEDS: KETOROLAC 15 MG/ML 1 ML VIAL IVP SCH ×4 (09:27→23:12)
[2020-01-06] MEDS: GABAPENTIN 300 MG CAP PO SCH ×3 (09:34→19:58)
[2020-01-06] MEDS ORDERED: GABAPENTIN 100 MG CAP PO ONE (10:00)
[2020-01-06 11:53] LABS: African American GFR (CKD) 105.5 (60.0-200.0); Anion Gap 8.7 mmol/L (4.00-12.00); BUN/Creat Ratio 11.67 Ratio (12.00-20.00); Calcium 8.2 mg/dL (8.7-10.3); Carbon Dioxide 30.3 mmol/L (21.6-31.8); Non-African American GFR(CKD) 91.1 (60.0-200.0); Potassium 3.1 mmol/L (3.5-5.5)
[2020-01-06] MEDS ORDERED: Potassium Replacement Protocol 1 EACH MISC MISCELLANE PRN (12:28)
[2020-01-06] MEDS ORDERED: Magnesium Replacement Protocol 1 EACH MISC MISCELLANE PRN (12:29)
[2020-01-06] MEDS: MAGNESIUM SULFATE-D5W PMX 1 GM in DEXTROSE/WATER 1 100ML.BAG IVPB SCH ×2 (12:51→14:09)
[2020-01-06] MEDS: POTASSIUM CHLORIDE ER 20 MEQ TAB.ER PO SCH ×2 (12:52→14:08)
--- NOTE | 2020-01-06 13:10 | P.CRDCN ---
History of Present Illness History of present illness: HISTORY OF PRESENTING ILLNESS This is a pleasant 74-year-old female past medical history significant for hypothyroidism, ruptured diverticulitis with colostomy and recent reversal and squamous cell skin cancer. 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 We have been asked to see in consultation for symptomatic bradycardia. The patient underwent colostomy reversal yesterday with Dr. Matute. According to the documentation she had episodes of bradycardia noted intraoperatively. The patient is not currently on telemetry. Vital signs documentation reveals current blood pressure of 98/53 with a heart rate of 56. The patient states she always has a low heart rate. Her primary care physician has center for a workup for this in the past became to be unremarkable. The patient states overall she does feel mildly lightheaded however she thinks this is because she has not eaten anything and has not yet gotten up out of bed since surgery. She denies symptoms of chest pain, shortness of breath or palpitations. There is no EKG for review. Laboratory data reviewed, CBC unremarkable, sodium 142, potassium 3.1, creatinine 0.6, magnesium 1.6, TSH is less than 0.0 15. She takes no daily cardiac medications. REVIEW OF SYSTEMS At the time of my exam: CONSTITUTIONAL: Denies fever or chills. CARDIOVASCULAR: Denies chest pain, shortness of breath, orthopnea, PND or palpitations. RESPIRATORY: Denies cough. GASTROINTESTINAL: Denies abdominal pain, diarrhea, constipation, nausea or vomiting. MUSCULOSKELETAL: Denies myalgias. NEUROLOGIC: Denies numbness, tingling or weakness. ENDOCRINE: Denies fatigue, weight change, polydipsia or polyurina. GENITOURINARY: Denies burning, hematuria or urgency with micturation. HEMATOLOGIC: Denies history of anemia or bleeding. PHYSICAL EXAMINATION CONSTITUTIONAL: No apparent distress. HEENT: Head is normocephalic. Pupils are equal, round. Sclerae anicteric. Mucous membranes of the mouth are moist. No JVD. No carotid bruit. CHEST EXAMINATION: Lungs are clear to auscultation. No chest wall tenderness is noted on palpation or with deep breathing. HEART EXAMINATION: Regular rate and rhythm. S1, S2 heard. No murmurs, gallops or rub. EXTREMITIES: 2+ peripheral pulses, no lower extremity edema and no calf tenderness. ASSESSMENT Sinus bradycardia Status post colostomy reversal Hypothyroidism with depressed TSH PLAN Obtain 12-lead EKG. Decrease levothyroxine to 100 g daily, await free T4. Recommend outpatient stress test to assess for chronotropic response. No further cardiac workup at this time. Thank you kindly for this consultation. Nurse Practitioner note has been reviewed, I agree with a documented findings and plan of care. Patient was seen and examined. Past Medical History Past Medical History: Cancer, Osteoarthritis (OA), Thyroid Disorder Additional Past Medical History / Comment(s): Basal Cell Carcinoma (left side chest), Squamous Cell CA (right side of chest). Skin CA on nose, left shoulder, left side of head and right shoulder. ocular migraines, colitis, left breast cancer-radiation 2016, "very dry skin", "weak bladder" History of Any Multi-Drug Resistant Organisms: ESBL Date of last positivie culture/infection: 10/25/19 MDRO Source:: ESBL ABDOMEN Past Surgical History: Bowel Resection, Breast Surgery, Cholecystectomy, Heart Catheterization, Joint Replacement, Orthopedic Surgery Additional Past Surgical History / Comment(s): COLOSTOMY 10/18/19-R/T BOWEL PERFORATION, LT KNEE REPLACEMENT 10/17/19, COLONOSCOPY, LOVELY hip replacements, BILAT CATARACT REMOVAL WITH LENS IMPLANTS, RT ROTATOR CUFF REPAIR,left breast lumpectomy, heart cath 2009, colostomy reversal 01/05/20. Past Anesthesia/Blood Transfusion Reactions: No Reported Reaction Past Psychological History: No Psychological Hx Reported Smoking Status: Former smoker Past Alcohol Use History: Occasional Additional Past Alcohol Use History / Comment(s): quit smoking > 20 yrs ago, smoked for 40 yrs, 1 PPD Past Drug Use History: None Reported - Past Family History Father History Unknown: Yes Mother Family Medical History: Cancer Additional Family Medical History / Comment(s): breast cancer Medications and Allergies Home Medications Medication Instructions Recorded Confirmed Type Anastrozole [Arimidex] 1 mg PO DAILY 08/17/19 01/03/20 History Folic Acid 1 mg PO DAILY 08/17/19 01/03/20 History Gabapentin [Neurontin] 100 mg PO DAILY 08/17/19 01/05/20 History Temazepam [Restoril] 30 mg PO HS 08/17/19 01/05/20 History Cholecalciferol [Vitamin D3 (25 2,000 unit PO DAILY 10/18/19 01/03/20 History Mcg = 1000 Iu)] Cyanocobalamin [Vitamin B-12] 500 mcg PO DAILY 10/18/19 01/03/20 History Ferrous Sulfate [Feosol] 325 mg PO DAILY 10/18/19 01/03/20 History Latanoprost/Pf [Latanoprost 0.005% 1 drop BOTH EYES HS 10/18/19 01/05/20 History Eye Drop] Levothyroxine Sodium 125 mcg PO DAILY 10/18/19 01/03/20 History Zinc 50 mg PO DAILY 10/18/19 01/03/20 History azaTHIOprine [Imuran] 50 mg PO DAILY 10/18/19 01/03/20 History Infliximab-Dyyb [Inflectra] 100 mg IV DIRECTED 01/03/20 01/03/20 History Allergies Allergy/AdvReac Type Severity Reaction Status Date / Time vancomycin Allergy Rash/Hives/ Verified 01/05/20 08:05 itching Physical Exam Vitals: Vital Signs Temp Pulse Pulse Resp BP Pulse Ox 01/06/20 07:00 98.9 F 56 L 17 98/53 94 L 01/06/20 03:32 16 01/06/20 02:15 98.6 F 71 16 105/56 95 01/05/20 23:40 16 01/05/20 19:35 97.6 F 74 18 113/69 97 01/05/20 19:00 17 01/05/20 18:17 96.9 F L 82 18 145/78 100 01/05/20 17:45 55 L 16 141/80 99 01/05/20 17:30 51 L 16 145/73 99 01/05/20 17:15 74 16 154/91 99 01/05/20 17:00 75 16 142/87 99 01/05/20 16:45 73 16 174/70 100 01/05/20 16:30 72 16 173/83 100 01/05/20 16:15 70 16 180/80 100 01/05/20 16:04 97.7 F 70 16 166/77 100 Intake and Output 01/05/20 01/06/20 01/06/20 22:59 06:59 14:59 Intake Total 600 Output Total 9218 465 10 Balance -1524 -775 -10 Intake: IV 600 Output: Drainage 25 10 Right Abdomen 25 10 Urine 2025 750 Estimated Blood Loss 100 Other: Voiding Method Indwelling Catheter Indwelling Catheter Indwelling Catheter Weight 78.8 kg Results 01/06/20 06:34 01/06/20 06:34 Cardiac Enzymes 01/06/20 Range/Units 08:21 Troponin I 0.014 (0.000-0.034) ng/mL CBC 01/06/20 Range/Units 06:34 WBC 8.0 (3.8-10.6) k/uL RBC 3.50 L (3.80-5.40) m/uL Hgb 11.7 (11.4-16.0) gm/dL Hct 34.5 (34.0-46.0) % Plt Count 212 (150-450) k/uL Comprehensive Metabolic Panel 01/06/20 Range/Units 06:34 Sodium 142 (135-145) mmol/L Potassium 3.1 L (3.5-5.5) mmol/L Chloride 103 (96-109) mmol/L Carbon Dioxide 30.3 (21.6-31.8) mmol/L BUN 7.0 L (9.0-27.0) mg/dL Creatinine 0.6 (0.6-1.5) mg/dL Glucose 87 (70-110) mg/dL Calcium 8.2 L (8.7-10.3) mg/dL Current Medications Generic Name Dose Route Start Last Admin Trade Name Freq PRN Reason Stop Dose Admin Acetaminophen 1,000 mg 01/06/20 07:45 01/06/20 12:51 Acetaminophen Tab 500 Mg Tab PO 1,000 mg Q6HR MALCOLM Administration Alvimopan 12 mg 01/05/20 21:00 01/06/20 07:27 Alvimopan 12 Mg Capsule PO 01/12/20 09:01 12 mg BID MALCOLM Administration Folic Acid 1 mg 01/06/20 09:00 01/06/20 07:32 Folic Acid 1 Mg Tab PO Not Given DAILY MALCOLM Gabapentin 300 mg 01/06/20 09:00 01/06/20 09:34 Gabapentin 300 Mg Cap PO Not Given TID MALCOLM Heparin Sodium (Porcine) 5,000 unit 01/05/20 21:00 01/06/20 07:27 Heparin Sodium,Porcine 5,000 Unit/Ml 1 Ml Vial SQ 5,000 unit Q12HR MALCOLM Administration Hydromorphone HCl 1 mg 01/05/20 16:22 01/06/20 07:34 Hydromorphone 1 Mg/Ml 1 Ml Syringe IVP 1 mg Q3HR PRN Administration Severe Pain Lactated Ringer's 1,000 mls @ 20 mls/hr 01/05/20 05:39 01/06/20 06:09 Lactated Ringers IV Not Given .Q24H MALCOLM Metronidazole 500 mg/ IV 100 mls @ 100 mls/hr 01/05/20 18:00 01/06/20 09:33 Solution IVPB 100 mls/hr Q8H MALCOLM Administration Sodium Chloride 1,000 mls @ 75 mls/hr 01/05/20 16:30 01/06/20 06:34 Saline 0.9% IV Not Given .[id number] MALCOLM Ceftriaxone Sodium 2 gm/ 50 mls @ 100 mls/hr 01/05/20 19:00 01/06/20 07:27 Sodium Chloride IVPB 100 mls/hr Q12H MALCOLM Administration Magnesium Sulfate/Dextrose 1 100 mls @ 100 mls/hr 01/06/20 12:30 01/06/20 12:51 gm/ IV Solution IVPB 01/06/20 14:29 100 mls/hr Q1H MALCOLM Administration Ketorolac Tromethamine 15 mg 01/06/20 07:45 01/06/20 12:52 Ketorolac 15 Mg/Ml 1 Ml Vial IVP 01/09/20 07:34 15 mg Q6HR MALCOLM Administration Latanoprost 1 drops 01/05/20 21:00 01/05/20 20:48 Latanoprost 0.005% Ophth Drops 2.5 Ml Btl BOTH EYES 1 drops HS MALCOLM Administration Levothyroxine Sodium 100 mcg 01/07/20 06:30 Levothyroxine 100 Mcg Tab PO DAILY@0630 [facility] Miscellaneous Information 1 each 01/06/20 12:28 Potassium Replacement Protocol 1 Each Misc MISCELLANE DAILY PRN Per Protocol Protocol Miscellaneous Information 1 each 01/06/20 12:29 Magnesium Replacement Protocol 1 Each Misc MISCELLANE DAILY PRN Per Protocol Protocol Ondansetron HCl 4 mg 01/05/20 16:22 Ondansetron 4 Mg/2 Ml Vial IVP Q8HR PRN Nausea And Vomiting Potassium Chloride 20 meq 01/06/20 13:00 01/06/20 12:52 Potassium Chloride Er 20 Meq Tab.Er PO 01/06/20 14:01 20 meq Q1HR MALCOLM Administration Protocol Intake and Output 01/05/20 01/06/20 01/06/20 22:59 06:59 14:59 Intake Total 600 Output Total 6187 775 10 Balance -1525 -775 -10 Intake: IV 600 Output: Drainage 25 10 Right Abdomen 25 10 Urine 5 750 Estimated Blood Loss 100 Other: Voiding Method Indwelling Catheter Indwelling Catheter Indwelling Catheter Weight 78.8 kg 01/06/20 06:34 01/06/20 06:34
--- NOTE | 2020-01-06 13:43 | P.PN ---
Subjective Progress Note Date: 01/06/20 CHIEF COMPLAINT: Diverticulitis HISTORY OF PRESENT ILLNESS: The patient is a 74-year-old female status post robotic extensive lysis of adhesions, drainage of left pelvis abscess/phlegmon, rectal washout, colonoscopy, low anterior resection with sigmoid colectomy and colostomy reversal, 01/04. She is POD 1. She reports, "I feel fine!". She has excellent pain control. No passage of flatus. No nausea or vomiting. She is comfortable. She reports drainage for around CALISTA site. She is tolerating clear liquid diet. She reports being on the same thyroid dose for years. She had an abdominal wall block ROS: No reports of nausea and vomiting. No fevers or chills. No new chest pain. PHYSICAL EXAM: VITAL SIGNS: Reviewed CONSTITUTIONAL: Well developed and in no acute distress. EYES: Conjuctivae without sclera icterus. Extraocular movements grossly intact. HEAD, EARS, NOSE, THROAT: Moist buccal mucosa. Head is atraumatic, normocephalic. Hears conversational speech. No nasal drainage. NECK: Supple. RESPIRATORY: Non-labored respirations and equal bilateral excursions. CARDIOVASCULAR: Palpable 2+ radial pulses. ABDOMEN: CALISTA is serosanguinous. No peritonitis. Incisions clean, dry and intact : Banegas with anna, dark urine MUSCULOSKELETAL: No gross deformity of the lower extremities noted. No clubbing. No cyanosis. SKIN: Good skin turgor. Well perfused. NEUROLOGIC: Cranial nerves II through XII grossly intact. No focal or lateralizing signs. PSYCH: Appropriate affect. Alert and oriented to person, place and time. CLINICAL LABS: Reviewed TSH suppressed. WBC normal. Hgb normal. Magnesium and Potassium is low. MISCELLANEOUS: Intraoperative details including presence of phlegmon, abscess, peritoneal adhesions, stool in rectum, length of procedure 6 hrs described with images ASSESSMENT: 1. Perforated sigmoid diverticulitis with colostomy 2. Peritoneal abscess drained 3. Peritoneal adhesions 4. Ulcerative colitis. 5. Hyperthyroidism, adverse reaction from medication 6. Hypokalemia 7. Low magnesium 8. Bradycardia with hypotension PLAN: 1. Appreciate cardiology consultation for bradycardia 2. Hold synthroid for severe hyperthyroidism from medication 3. Replacement of Mg and potassium 4. IV fluid bolus for dark anna urine 5. Continue Entereg and liquid diet, clear 6. Physical therapy for history of recent left knee replacement 7. Antibiotics for peritoneal abscess multi-drug resistant--see Microbiology report from 10/2019. 8. Send CALISTA cultures 9. Infectious disease consultation Objective - Vital Signs Vital signs: Vital Signs Temp 98.9 F 01/06/20 07:00 Pulse 56 L 01/06/20 07:00 Resp 17 01/06/20 07:00 BP 98/53 01/06/20 07:00 Pulse Ox 94 L 01/06/20 07:00 Intake & Output 01/05/20 01/06/20 01/06/20 18:59 06:59 18:59 Intake Total 4050 Output Total 1375 1525 10 Balance 2675 -1525 -10 Weight 78.8 kg Intake: IV 4050 Output: Drainage 25 10 Right Abdomen 25 10 Urine 1275 1500 Estimated Blood Loss 100 Other: Voiding Method Indwelling Catheter Indwelling Catheter - Labs CBC & Chem 7: 01/06/20 06:34 01/06/20 06:34 Labs: Abnormal Lab Results - Last 24 Hours (Table) 01/06/20 01/06/20 01/06/20 Range/Units 06:34 06:34 08:21 RBC 3.50 L (3.80-5.40) m/uL Potassium 3.1 L (3.5-5.5) mmol/L BUN 7.0 L (9.0-27.0) mg/dL BUN/Creatinine Ratio 11.67 L (12.00-20.00) Ratio Calcium 8.2 L (8.7-10.3) mg/dL TSH <0.015 L (0.465-4.680) mIU/L Assessment and Plan (1) Peritoneal abscess Current Visit: Yes Status: Acute Code(s): K65.1 - PERITONEAL ABSCESS SNOMED Code(s): 65756887 (2) Diverticulitis of large intestine with abscess Current Visit: Yes Status: Acute Code(s): K57.20 - DVTRCLI OF LG INT W PERFORATION AND ABSCESS W/O BLEEDING SNOMED Code(s): 3742716 (3) Peritoneal adhesions Current Visit: Yes Status: Acute Code(s): K66.0 - PERITONEAL ADHESIONS (POSTPROCEDURAL) (POSTINFECTION) SNOMED Code(s): 50183479 (4) Fecal impaction in rectum Current Visit: Yes Status: Acute Code(s): K56.41 - FECAL IMPACTION SNOMED Code(s): 67453129 (5) Hyperthyroidism determined by thyroid function test Current Visit: Yes Status: Acute Code(s): E05.90 - THYROTOXICOSIS, UNSP WITHOUT THYROTOXIC CRISIS OR STORM; R94.6 - ABNORMAL RESULTS OF THYROID FUNCTION STUDIES SNOMED Code(s): 54992555 (6) Ulcerative colitis Current Visit: No Status: Acute Code(s): K51.90 - ULCERATIVE COLITIS, UNSPECIFIED, WITHOUT COMPLICATIONS SNOMED Code(s): 65212870
[2020-01-06] MEDS ORDERED: SODIUM CHLORIDE 0.9% 1,000 ML IV ONE (13:44)
[2020-01-06] MEDS: LATANOPROST 0.005% OPHTH DROPS 2.5 ML BTL BOTH EYES SCH (19:58)
[2020-01-06] MEDS: ERTAPENEM 1 GM in SODIUM CHLORIDE 0.9% 50 ML IVPB SCH (23:13)
[2020-01-06] MEDS: SODIUM CHLORIDE 0.9% 1,000 ML with POTASSIUM CHLORIDE 40 MEQ IV SCH ×2 (23:16)
--- NOTE | 2020-01-07 00:57 | CONS ---
CONSULTATION DATE OF SERVICE: 01/06/2020 REASON FOR CONSULTATION: Abdominal abscess. HISTORY OF PRESENT ILLNESS: The patient is a 74-year-old female, in this patient who recently did have a perforated diverticulitis, diverting colostomy, abdominal wall abscess. Culture obtained was positive for ESBL E coli. The patient has been electively admitted to the hospital for surgical resection and reversal of her colostomy. The patient did have surgery completed yesterday. At the time of surgery, there was noticed to have a pus pocket which has been drained and sent for culture. The patient was started on Rocephin and Flagyl. Infectious Disease was consulted for further management. The patient at the time of my evaluation, denies having any fever or any chills. The patient denies having any abdominal pain prior to the surgery. No nausea, no vomiting. No chest pain. No shortness of breath or cough and no diarrhea. REVIEW OF SYSTEMS: Positive points have been mentioned in HPI. Rest of systems are negative. PAST MEDICAL HISTORY: Hypothyroidism, osteoarthritis, basal cell carcinoma perforated diverticulitis and abdominal wound infection with ESBL. PAST SURGICAL HISTORY: Past surgical history of bowel resection, diverting colostomy, cholecystectomy, heart catheterization, breast surgery. SOCIAL HISTORY: Remote history of smoking. Occasionally drinks. No drug use. FAMILY HISTORY: Mother history of breast cancer. ALLERGIES: To VANCOMYCIN. MEDICATIONS: The patient is currently on Tylenol, Rocephin, Flagyl, folic acid, Neurontin, heparin, Dilaudid, Toradol, lactated Ringer, Zofran. PHYSICAL EXAMINATION: Blood pressure 99/58 with a pulse of 54, temperature 97.9. She is 97% on room air. General description: The patient is an elderly female lying in bed in no distress. No tachypnea or accessory muscles of respiration use. HEENT exam: No pallor. No scleral icterus. Oral mucous membranes dry. No pharyngeal erythema or thrush. Neck: Trachea central. No thyromegaly. Lungs unlabored breathing, clear to auscultation anteriorly. No wheeze or crackles. Heart S1, S2. Regular rate and rhythm. ABDOMEN: Soft, no tenderness. No guarding. No rigidity. EXTREMITIES: No edema of the feet. Skin examination: No rash or mass palpable. NEUROLOGIC: The patient is awake, alert, oriented x3. Mood and affect normal. LABS: Hemoglobin 11.7, white count 8.0. BUN of 7, creatinine 0.6. DIAGNOSTIC IMPRESSION AND PLAN: Patient with evidence of abdominal abscess in this patient electively admitted to the hospital for reversal of her colostomy in this patient who did have a history of abdominal wall infection with ESBL for which the patient completed antibiotic therapy a few months ago. PLAN: 1. Discontinue Rocephin and Flagyl. 2. Start the patient on Invanz 1 g daily while waiting for the culture to finalize. 3. We will follow her clinical condition and culture to further adjust medication if needed. Thank you for this consultation. Will follow this patient along with you. MMODL / IJN: [id number] /
[2020-01-07] MEDS: ACETAMINOPHEN TAB 500 MG TAB PO SCH ×3 (05:04→17:18)
[2020-01-07] MEDS: SODIUM CHLORIDE 0.9% 1,000 ML with POTASSIUM CHLORIDE 40 MEQ IV SCH ×4 (05:05→14:28)
[2020-01-07] MEDS: KETOROLAC 15 MG/ML 1 ML VIAL IVP SCH ×3 (05:05→17:19)
[2020-01-07] MEDS ORDERED: LEVOTHYROXINE 100 MCG TAB PO SCH (06:30)
[2020-01-07 06:36] LABS: Basophils % (A) 1 %; Eosinophils # (A) 0.4 k/uL (0-0.7); Eosinophils % (A) 5 %; HGB 11.6 gm/dL (11.4-16.0); Lymphocytes # (A) 0.6 k/uL (1.0-4.8); Lymphocytes % (A) 9 %; MCH 34.3 pg (25.0-35.0); MCHC 34.1 g/dL (31.0-37.0); MCV 100.5 fL (80.0-100.0); Macrocytosis Slight; Mean Platelet Volume 7.7; Monocytes # (A) 0.3 k/uL (0-1.0); Monocytes % (A) 5 %; Neutrophils # (A) 5.2 k/uL (1.3-7.7); Neutrophils % (A) 79 %; Platelet Count 182 k/uL (150-450); RBC 3.39 m/uL (3.80-5.40); RDW 14.9 % (11.5-15.5); WBC 6.6 k/uL (3.8-10.6)
[2020-01-07] MEDS: LACTATED RINGERS 1,000 ML IV SCH (07:38)
[2020-01-07] MEDS: FOLIC ACID 1 MG TAB PO SCH (07:39)
[2020-01-07] MEDS: ALVIMOPAN 12 MG CAPSULE PO SCH (07:39)
[2020-01-07] MEDS: GABAPENTIN 300 MG CAP PO SCH ×3 (08:45→20:50)
[2020-01-07] MEDS: HEPARIN SODIUM,PORCINE 5,000 UNIT/ML 1 ML VIAL SQ SCH ×2 (08:46→20:50)
--- NOTE | 2020-01-07 09:45 | P.PN ---
Progress Note - Text Progress Note Date: 01/07/20 Notified by nursing overnight, patient had adverse reaction to Invanz with rapid heart rate of 150s. Invanz discontinued. Patient previously tolerated flagyl and ceftriaxone and will resume. Patient case deemed contaminated from abscess in pelvis and will need continued IV antibiotics
[2020-01-07 10:06] LABS: African American GFR (CKD) 112.1 (60.0-200.0); Blood Urea Nitrogen <5.0 mg/dL (9.0-27.0); Calcium 7.8 mg/dL (8.7-10.3); Carbon Dioxide 24.5 mmol/L (21.6-31.8); Chloride 109 mmol/L (96-109); Glucose 90 mg/dL (70-110); Magnesium 1.9 mg/dL (1.5-2.4); Non-African American GFR(CKD) 96.7 (60.0-200.0); Phosphorus 1.9 mg/dL (2.4-5.1); Potassium 3.7 mmol/L (3.5-5.5); Sodium 140 mmol/L (135-145)
[2020-01-07] MEDS: metroNIDAZOLE-NS PMX 500 MG in SALINE 1 100ML.BAG IVPB SCH ×2 (11:05→17:18)
[2020-01-07] MEDS ORDERED: TEMAZEPAM 15 MG CAP PO PRN (14:30)
--- NOTE | 2020-01-07 14:30 | P.PN ---
Subjective Progress Note Date: 01/07/20 CHIEF COMPLAINT: Diverticulitis HISTORY OF PRESENT ILLNESS: The patient is a 74-year-old female status post robotic extensive lysis of adhesions, drainage of left pelvis abscess/phlegmon, rectal washout, colonoscopy, low anterior resection with sigmoid colectomy and colostomy reversal, 01/04. She is POD 2. She is passing flatus and having bowel movements. Her pain is well controlled. "I want to eat!" She is on liquid diet. Overnight, she had tachyarrhythmia following her antibiotic Invanz. As a result it is now discontinued. ROS: No reports of nausea and vomiting. No fevers or chills. PHYSICAL EXAM: VITAL SIGNS: Reviewed CONSTITUTIONAL: Well developed and in no acute distress. EYES: Conjuctivae without sclera icterus. Extraocular movements grossly intact. HEAD, EARS, NOSE, THROAT: Moist buccal mucosa. Head is atraumatic, normocephalic. Hears conversational speech. No nasal drainage. NECK: Supple. RESPIRATORY: Non-labored respirations and equal bilateral excursions. CARDIOVASCULAR: Palpable 2+ radial pulses. ABDOMEN: CALISTA is serosanguinous. No peritonitis. Incisions clean, dry and intact. PREVENA vac intact. : Clear yellow urine. MUSCULOSKELETAL: No gross deformity of the lower extremities noted. No clubbing. No cyanosis. SKIN: Good skin turgor. Well perfused. NEUROLOGIC: Cranial nerves II through XII grossly intact. No focal or lateralizing signs. PSYCH: Appropriate affect. Alert and oriented to person, place and time. CLINICAL LABS: WBC normal. Hgb stable ASSESSMENT: 1. Perforated sigmoid diverticulitis with colostomy 2. Peritoneal abscess drained 3. Peritoneal adhesions 4. Ulcerative colitis. 5. Hyperthyroidism, adverse reaction from medication 6. Hypokalemia 7. Low magnesium 8. Bradycardia with hypotension 9. Tachyarrhythmia following Invanz PLAN: 1. She has developed new intolerance to Invanz. Antibiotic changed. 2. Discontinue richey. 3. Advance diet to low fiber 4. Disposition home tomorrow with antibiotic. Objective - Vital Signs Vital signs: Vital Signs Temp 98.1 F 01/07/20 07:00 Pulse 64 01/07/20 07:00 Resp 16 01/07/20 07:00 BP 108/64 01/07/20 07:00 Pulse Ox 96 01/07/20 07:00 Intake & Output 01/06/20 01/07/20 01/07/20 18:59 06:59 18:59 Intake Total 400 Output Total 1015 1200 2520 Balance -4983 -267 -3482 Intake: Oral 400 Output: Drainage 15 Right Abdomen 15 Urine 1000 1200 2520 Other: Voiding Method Indwelling Catheter Indwelling Catheter Indwelling Catheter # Bowel Movements 1 2 - Labs CBC & Chem 7: 01/07/20 06:24 01/07/20 06:24 Labs: Abnormal Lab Results - Last 24 Hours (Table) 01/07/20 01/07/20 Range/Units 06:24 06:24 RBC 3.39 L (3.80-5.40) m/uL MCV 100.5 H (80.0-100.0) fL Lymphocytes # 0.6 L (1.0-4.8) k/uL BUN <5.0 L (9.0-27.0) mg/dL Creatinine 0.5 L (0.6-1.5) mg/dL Calcium 7.8 L (8.7-10.3) mg/dL Phosphorus 1.9 L (2.4-5.1) mg/dL Microbiology - Last 24 Hours (Table) 01/06/20 12:00 Gram Stain - Preliminary Peritoneal Fluid Body Fluid Culture - Preliminary Assessment and Plan (1) Peritoneal abscess Current Visit: Yes Status: Acute Code(s): K65.1 - PERITONEAL ABSCESS SN OMED Code(s): 29625939 (2) Diverticulitis of large intestine with abscess Current Visit: Yes Status: Acute Code(s): K57.20 - DVTRCLI OF LG INT W PERFORATION AND ABSCESS W/O BLEEDING SNOMED Code(s): 6005200 (3) Peritoneal adhesions Current Visit: Yes Status: Acute Code(s): K66.0 - PERITONEAL ADHESIONS (POSTPROCEDURAL) (POSTINFECTION) SNOMED Code(s): 88563180 (4) Fecal impaction in rectum Current Visit: Yes Status: Acute Code(s): K56.41 - FECAL IMPACTION SNOMED Code(s): 27829667 (5) Hyperthyroidism determined by thyroid function test Current Visit: Yes Status: Acute Code(s): E05.90 - THYROTOXICOSIS, UNSP WITHOUT THYROTOXIC CRISIS OR STORM; R94.6 - ABNORMAL RESULTS OF THYROID FUNCTION STUDIES SNOMED Code(s): 18162002 (6) Ulcerative colitis Current Visit: No Status: Acute Code(s): K51.90 - ULCERATIVE COLITIS, UNSPECIFIED, WITHOUT COMPLICATIONS SNOMED Code(s): 96731206
[2020-01-07] MEDS: ERTAPENEM 1 GM in SODIUM CHLORIDE 0.9% 50 ML IVPB SCH (18:27)
[2020-01-07] MEDS: LATANOPROST 0.005% OPHTH DROPS 2.5 ML BTL BOTH EYES SCH (20:51)
[2020-01-07] MEDS ORDERED: TEMAZEPAM 15 MG CAP PO SCH (21:00)
[2020-01-08] MEDS: metroNIDAZOLE-NS PMX 500 MG in SALINE 1 100ML.BAG IVPB SCH ×2 (02:00→07:43)
[2020-01-08] MEDS: KETOROLAC 15 MG/ML 1 ML VIAL IVP SCH ×3 (02:03→12:03)
[2020-01-08] MEDS: ACETAMINOPHEN TAB 500 MG TAB PO SCH ×3 (02:03→12:03)
[2020-01-08] MEDS: LACTATED RINGERS 1,000 ML IV SCH (02:17)
--- NOTE | 2020-01-08 03:00 | PN ---
PROGRESS NOTE DATE OF SERVICE: 01/07/2020 REASON FOR FOLLOWUP: Abdominal abscess. INTERVAL HISTORY: The patient is currently afebrile. Apparently the patient did have some tachycardia and some pain after she was given Invanz which was discontinued. Antibiotic has been switched over to Rocephin and Flagyl. The patient denies having any difficulty in breathing or any rash. She is feeling better today. No chest pain. No cough. No abdominal pain. She has been passing gas and wants her diet to be advanced. PHYSICAL EXAMINATION: Blood pressure 144/88 with a pulse of 57, temperature 98.2. She is 97% on room air. General description is an elderly female lying in bed in no distress. RESPIRATORY SYSTEM: Unlabored breathing is clear to auscultation anteriorly. HEART: S1, S2. Regular rate and rhythm. ABDOMEN: Soft, no tenderness. LABS: Hemoglobin 11.6, white count 6.6, BUN of less than 5, creatinine 0.5. Abdominal culture so far pending. DIAGNOSTIC IMPRESSION AND PLAN: Patient with concern for abdominal abscess at the time of surgery of reversal of her colostomy, previous culture positive for ESBL Escherichia coli. She was given Invanz. Apparently she did have some symptoms last night and very typical of an allergic reaction and clinically doubt Invanz allergy as she has tolerated in the past. Currently on Rocephin and Flagyl to continue while waiting for the culture to finalize and continue with supportive care. MMODL / IJN: [id number] /
[2020-01-08] MEDS ORDERED: Phosphorus Replacement Protoco 1 EACH MISC MISCELLANE PRN (05:44)
[2020-01-08 07:12] VITALS: BP 146/67; PULSE 68; RESP 18; TEMP 98.1
[2020-01-08] MEDS: POTASSIUM PHOSPHATE 10 MMOL in SODIUM CHLORIDE 0.9% 250 ML IV SCH ×2 (07:22→11:41)
[2020-01-08] MEDS: HEPARIN SODIUM,PORCINE 5,000 UNIT/ML 1 ML VIAL SQ SCH (07:25)
[2020-01-08] MEDS: GABAPENTIN 300 MG CAP PO SCH (07:25)
[2020-01-08] MEDS: FOLIC ACID 1 MG TAB PO SCH (09:57)
--- NOTE | 2020-01-08 13:03 | P.DS ---
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 coli infection Status: Acute Hospital Course: POSTOPERATIVE DIAGNOSES: 1. Perforated sigmoid diverticulitis with colostomy 2. Present on admission ulcerative colitis 3. Chronic pain syndrome 4. History of skin cancer breast cancer 5. Status post partial knee arthroplasty 6. Pre-existing immunosuppression 7. Hypothyroidism 8. Severe peritoneal adhesions 9. Peritoneal diverticular abscess, left pelvis with phlegmon 10. Rectal constipation COURSE: The patient is a 74-year-old female who presents with ruptured sigmoid diverticulitis and colostomy. She underwent robotic-assisted lysis of adhesions including colectomy with colostomy reversal. She was treated for pre-existing ESBL E. coli. Prior to discharge, she was tolerating diet, passing flatus and having bowel movements. Her pain was well-controlled. Discharge instructions particularly discharge diet was reviewed. Follow-up in the office one week also reviewed. Patient was afebrile and hemodynamically stable. Procedures: OPERATION: 1. Robotic-assisted daVinci Xi laparoscopic lysis of adhesions over 3 hours 2. Robotic-assisted daVinci Xi laparoscopic drainage of left pelvic/phlegmon from diverticular abscess 3. Rectal lavage, normal saline 4. Intraoperative colonoscopy 5. Robotic-assisted daVinci Xi colostomy reversal with rectal and sigmoid colectomy and low anterior resection using 25 mm ILS 6. Abdominal washout 500 mL normal saline 7. Placement of round #19 drain pelvis, right pelvis 8. Application of incisional wound VAC system 13 cm, PREVENA ostomy site, left lower quadrant Anesthesia: GETA, regional, local Estimated Blood Loss (ml): 100 Pathology: other (rectum, sigmoid colon) Condition: stable Disposition: floor COMPLICATIONS: None. Operative Findings: 1. Left pelvic phlegmon with abscess 5 mL drained 2. Anastomosis with EEA stapler 25 mm 3. No tension or torsion along the anastomosis 4. Doughnuts intact both sides and viable 5. Intra-abdominal peritoneal adhesions omentum including small bowel to abdominal wall completely lysed 6. Small bowel adherent to pelvis lysed 7. Moderate stool found in the rectum evacuated with lavage Patient Condition at Discharge: Good Plan - Discharge Summary Discharge Rx Participant: No New Discharge Prescriptions: New Ibuprofen [Motrin] 600 mg PO Q8HR PRN #30 tab PRN Reason: Pain Gabapentin [Neurontin] 300 mg PO TID #9 cap Acetaminophen Tab [Tylenol Tab] 1,000 mg PO Q6HR PRN #30 tablet Levothyroxine Sodium [Synthroid] 88 mcg PO DAILY #30 tab Ciprofloxacin HCl [Cipro] 500 mg PO Q12HR #20 tablet metroNIDAZOLE [Flagyl] 500 mg PO TID #30 tab Continue Temazepam [Restoril] 30 mg PO HS Folic Acid 1 mg PO DAILY Anastrozole [Arimidex] 1 mg PO DAILY azaTHIOprine [Imuran] 50 mg PO DAILY Cholecalciferol [Vitamin D3 (25 Mcg = 1000 Iu)] 2,000 unit PO DAILY Cyanocobalamin [Vitamin B-12] 500 mcg PO DAILY Ferrous Sulfate [Feosol] 325 mg PO DAILY Latanoprost/Pf [Latanoprost 0.005% Eye Drop] 1 drop BOTH EYES HS Zinc 50 mg PO DAILY Infliximab-Dyyb [Inflectra] 100 mg IV DIRECTED Discontinued Gabapentin [Neurontin] 100 mg PO DAILY Levothyroxine Sodium 125 mcg PO DAILY Discharge Medication List Anastrozole [Arimidex] 1 mg PO DAILY 08/17/19 [History] Folic Acid 1 mg PO DAILY 08/17/19 [History] Temazepam [Restoril] 30 mg PO HS 08/17/19 [History] Cholecalciferol [Vitamin D3 (25 Mcg = 1000 Iu)] 2,000 unit PO DAILY 10/18/19 [History] Cyanocobalamin [Vitamin B-12] 500 mcg PO DAILY 10/18/19 [History] Ferrous Sulfate [Feosol] 325 mg PO DAILY 10/18/19 [History] Latanoprost/Pf [Latanoprost 0.005% Eye Drop] 1 drop BOTH EYES HS 10/18/19 [History] Zinc 50 mg PO DAILY 10/18/19 [History] azaTHIOprine [Imuran] 50 mg PO DAILY 10/18/19 [History] Infliximab-Dyyb [Inflectra] 100 mg IV DIRECTED 01/03/20 [History] Acetaminophen Tab [Tylenol Tab] 1,000 mg PO Q6HR PRN #30 tablet 01/07/20 [Rx] Ciprofloxacin HCl [Cipro] 500 mg PO Q12HR #20 tablet 01/07/20 [Rx] Gabapentin [Neurontin] 300 mg PO TID #9 cap 01/07/20 [Rx] Ibuprofen [Motrin] 600 mg PO Q8HR PRN #30 tab 01/07/20 [Rx] Levothyroxine Sodium [Synthroid] 88 mcg PO DAILY #30 tab 01/07/20 [Rx] metroNIDAZOLE [Flagyl] 500 mg PO TID #30 tab 01/07/20 [Rx] Follow up Appointment(s)/Referral(s): Amelie Dowd MD [STAFF PHYSICIAN] - 4 Weeks (office not answering. Please call to make appointment ) Natalie Matute MD [STAFF PHYSICIAN] - 01/16/20 3:30 pm Patient Instructions/Handouts: Low Fiber Diet (DC), Brian-Almonte Drain Care (DC), Laparoscopic Bowel Resection (DC), Negative Pressure Wound Therapy (DC), Colectomy Diet (DC) Activity/Diet/Wound Care/Special Instructions: DO NOT RESUME ANASTROZOLE AND INFLIXIMIB UNTIL 01/15/20 on WEDNESDAY to decrease risk of bowel rupture. Keep CALISTA and Wound VAC Wear abdominal binder at all times for comfort. No lifting over 4 pounds in 4 weeks until Feb 03. June shower. No bath tub soaks for two weeks until Jan 18 Avoid steak, tough meats and seeds such as raspberry seeds. No driving while on narcotics. Use Tylenol and ibuprofen scheduled for the next 24-48 hours for best pain relief. Use ice along incisions for the today to prevent swelling. Discharge Disposition: HOME WITH HOME HEALTH SERVICES
--- NOTE | 2020-01-08 15:13 | PN ---
PROGRESS NOTE DATE OF SERVICE: 01/08/2020 REASON FOR FOLLOWUP: Abdominal abscess. INTERVAL HISTORY: The patient was seen on rounds early this afternoon. The patient has been afebrile, patient overall feeling better, tolerating her diet. No chest pain. No cough. No abdominal pain, no diarrhea. PHYSICAL EXAMINATION: Blood pressure 146/65, pulse of 88, temperature 98.1. She is 97% on room air. General description is an elderly female, lying in bed in no distress. RESPIRATORY SYSTEM: Unlabored breathing, clear to auscultation anteriorly. HEART: S1, S2. Regular rate and rhythm. ABDOMEN: Soft, no tenderness. LABS: White count 6.6, BUN of 5, creatinine 0.5, abdominal cultures are pending. DIAGNOSTIC IMPRESSION AND PLAN: Patient with evidence of abdominal abscess and contents of her colostomy has been drained, cultures are pending. Flagyl to continue while waiting for the culture to finalize, continue supportive care. MMODL / IJN: [id number] /
== END 2020-01-08 14:09 | disposition home or self-care (01) | DRG 329 ==
LOC: 2ORMAIN 07:05 → 4SSUR 16:01
PROVIDERS: ADMIT Surgery Plastic and Reconstructive Surgery; ATTEND Surgery Plastic and Reconstructive Surgery
PROC: 8E0W4CZ Robotic Assisted Procedure of Trunk Region, Percutaneous Endoscopic Approach (ICD-10-PCS; 2020-01-05)
PROC: 0DJD8ZZ Inspection of Lower Intestinal Tract, Via Natural or Artificial Opening Endoscopic (ICD-10-PCS; 2020-01-05)
PROC: 0DBN4ZZ Excision of Sigmoid Colon, Percutaneous Endoscopic Approach (ICD-10-PCS; principal; 2020-01-05 08:55)
PROC: 0DBP4ZZ Excision of Rectum, Percutaneous Endoscopic Approach (ICD-10-PCS; 2020-01-05 08:55)
PROC: 0DNW4ZZ Release Peritoneum, Percutaneous Endoscopic Approach (ICD-10-PCS; 2020-01-05 08:55)
DX: Z43.3 Encounter for attention to colostomy (principal); K65.1 Peritoneal abscess; K51.90 Ulcerative colitis, unspecified, without complications; I95.9 Hypotension, unspecified; K56.41 Fecal impaction; M19.90 Unspecified osteoarthritis, unspecified site; R00.1 Bradycardia, unspecified; E03.9 Hypothyroidism, unspecified; G89.4 Chronic pain syndrome; K66.0 Peritoneal adhesions (postprocedural) (postinfection); E87.6 Hypokalemia; E05.90 Thyrotoxicosis, unspecified without thyrotoxic crisis or storm; R00.0 Tachycardia, unspecified; G43.109 Migraine with aura, not intractable, without status migrainosus; T50.905A Adverse effect of unspecified drugs, medicaments and biological substances, initial encounter; T36.8X5A Adverse effect of other systemic antibiotics, initial encounter; Z79.811 Long term (current) use of aromatase inhibitors; Z79.899 Other long term (current) drug therapy; Z79.890 Hormone replacement therapy; Z87.19 Personal history of other diseases of the digestive system; Z85.828 Personal history of other malignant neoplasm of skin; Z85.3 Personal history of malignant neoplasm of breast; Z92.3 Personal history of irradiation; Z90.49 Acquired absence of other specified parts of digestive tract; Z96.652 Presence of left artificial knee joint; Z96.1 Presence of intraocular lens; Z96.643 Presence of artificial hip joint, bilateral; Z98.890 Other specified postprocedural states; Z87.891 Personal history of nicotine dependence; Z86.19 Personal history of other infectious and parasitic diseases; Z88.1 Allergy status to other antibiotic agents; Z80.3 Family history of malignant neoplasm of breast
CPT/HCPCS: 64488; 80048; 83735; 84100; 84439; 84443; 84484; 85025; 86850; 86900; 86901; 87070; 87205; 88304; 88305; 93005

== ENCOUNTER → 2020-01-25 | Outpatient (CLI) | payer MEDICARE, OTHER ==
[~2020-01-25] MED LIST changes: -ACETAMINOPHEN TAB 500 MG TAB PO PRN; -ALVIMOPAN 12 MG CAPSULE PO PRN; -Antibiotics per Pharmacy 1 EACH MISC MISCELLANE PRN; -DEXAMETHASONE SOD PHOSPHATE 4 MG/ML 1 ML VIAL IV ONE; -GABAPENTIN 300 MG CAP PO STA; -HEPARIN SODIUM,PORCINE 5,000 UNIT/ML 1 ML VIAL SQ ONE; +INFLIXIMAB-DYYB 400 MG in SODIUM CHLORIDE 0.9% 210 ML IV NR; -MELOXICAM 7.5 MG TAB PO PRN; -MIDAZOLAM 2 MG/2 ML VIAL IV PRN; -ONDANSETRON 4 MG/2 ML VIAL IVP ONE; +SODIUM CHLORIDE 0.9% 500 ML 500 ML in EMPTY BAG 1 BAG IV PRN; -metroNIDAZOLE-NS PMX 500 MG in SALINE 1 100ML.BAG IVPB ONE
[2020-01-25 10:03] VITALS: TEMP 98.4
[2020-01-25 10:55] VITALS: RESP 18
[2020-01-25 11:38] VITALS: BP 123/69; PULSE 57
== END | disposition home or self-care (01) ==
LOC: PROCWHC3 09:36
PROVIDERS: ATTEND Internal Medicine Gastroenterology
DX: K51.90 Ulcerative colitis, unspecified, without complications (principal)
CPT/HCPCS: 96413; 96415; Q5103

== ENCOUNTER → 2020-03-21 | Outpatient (CLI) | payer MEDICARE, OTHER ==
[~2020-03-21] MED LIST changes: -INFLIXIMAB-DYYB 400 MG in SODIUM CHLORIDE 0.9% 210 ML IV NR; +INFLIXIMAB-DYYB 400 MG in SODIUM CHLORIDE 0.9% 250 ML IV NR
[2020-03-21 09:15] VITALS: TEMP 98.4
[2020-03-21 10:04] VITALS: RESP 16
[2020-03-21 10:21] VITALS: BP 121/85; PULSE 54
== END | disposition home or self-care (01) ==
LOC: PROCWHC3 08:47
PROVIDERS: ATTEND Internal Medicine Gastroenterology
DX: K51.90 Ulcerative colitis, unspecified, without complications (principal)
CPT/HCPCS: 96413; 96415; Q5103

== ENCOUNTER → 2020-09-06 | Outpatient (CLI) | payer MEDICARE, OTHER ==
[2020-09-06 09:34] VITALS: RESP 16; TEMP 98
[2020-09-06 11:31] VITALS: BP 116/69; PULSE 60
== END ==
LOC: PROCWHC3 09:16
PROVIDERS: ATTEND Internal Medicine Gastroenterology
DX: K51.90 Ulcerative colitis, unspecified, without complications (principal); Z88.1 Allergy status to other antibiotic agents; Z87.891 Personal history of nicotine dependence
CPT/HCPCS: 96413; 96415; Q5103

== ENCOUNTER → 2020-11-01 | Outpatient (CLI) | payer MEDICARE, OTHER ==
[2020-11-01 09:12] VITALS: TEMP 98.6
[2020-11-01 10:07] VITALS: RESP 16
[2020-11-01 10:26] VITALS: BP 135/75; PULSE 55
== END ==
LOC: PROCWHC3 08:44
PROVIDERS: ATTEND Internal Medicine Gastroenterology
DX: K51.90 Ulcerative colitis, unspecified, without complications (principal); Z88.1 Allergy status to other antibiotic agents; Z87.891 Personal history of nicotine dependence
CPT/HCPCS: 96413; 96415; Q5103

== ENCOUNTER → 2021-01-03 | Outpatient (CLI) | payer MEDICARE, OTHER ==
[2021-01-03 09:47] VITALS: TEMP 98.2
[2021-01-03 11:23] VITALS: BP 144/70; PULSE 56; RESP 16
== END ==
LOC: PROCWHC3 09:16
PROVIDERS: ATTEND Internal Medicine Gastroenterology
DX: K51.90 Ulcerative colitis, unspecified, without complications (principal); Z87.891 Personal history of nicotine dependence; Z88.1 Allergy status to other antibiotic agents
CPT/HCPCS: 96413; 96415; Q5103

== ENCOUNTER → 2021-06-30 | Outpatient (CLI) | payer MEDICARE, OTHER ==
[~2021-06-30] MED LIST changes: +INFLIXIMAB-DYYB 400 MG in SODIUM CHLORIDE 0.9% 210 ML IV NR; -INFLIXIMAB-DYYB 400 MG in SODIUM CHLORIDE 0.9% 250 ML IV NR
[2021-06-30 09:10] VITALS: RESP 16; TEMP 98.1
[2021-06-30 10:35] VITALS: BP 120/59; PULSE 61
== END ==
LOC: PROCWHC3 08:53
PROVIDERS: ATTEND Internal Medicine Gastroenterology
DX: K51.90 Ulcerative colitis, unspecified, without complications (principal); Z88.1 Allergy status to other antibiotic agents; Z87.891 Personal history of nicotine dependence
CPT/HCPCS: 96413; 96415; Q5103

== ENCOUNTER → 2021-08-25 | Outpatient (CLI) | payer MEDICARE, OTHER ==
[~2021-08-25] MED LIST changes: -INFLIXIMAB-DYYB 400 MG in SODIUM CHLORIDE 0.9% 210 ML IV NR; +INFLIXIMAB-DYYB 400 MG in SODIUM CHLORIDE 0.9% 250 ML IV NR
[2021-08-25 09:30] VITALS: RESP 16
[2021-08-25 10:18] VITALS: BP 115/70; PULSE 63
== END ==
LOC: PROCWHC3 08:43
PROVIDERS: ATTEND Internal Medicine Gastroenterology
DX: K51.90 Ulcerative colitis, unspecified, without complications (principal); Z88.1 Allergy status to other antibiotic agents; Z87.891 Personal history of nicotine dependence
CPT/HCPCS: 96413; 96415; Q5103

== ENCOUNTER → 2021-10-22 | Outpatient (CLI) | payer MEDICARE, OTHER ==
[2021-10-22 08:59] VITALS: RESP 16; TEMP 98.1
[2021-10-22 10:25] VITALS: BP 117/74; PULSE 56
== END ==
LOC: PROCWHC3 08:46
PROVIDERS: ATTEND Internal Medicine Gastroenterology
DX: K51.90 Ulcerative colitis, unspecified, without complications (principal); Z88.1 Allergy status to other antibiotic agents; Z88.8 Allergy status to other drugs, medicaments and biological substances; Z87.891 Personal history of nicotine dependence
CPT/HCPCS: 96413; 96415; Q5103

== ENCOUNTER → 2021-12-24 | Outpatient (CLI) | payer MEDICARE, OTHER ==
[~2021-12-24] MED LIST changes: +INFLIXIMAB-DYYB 400 MG in SODIUM CHLORIDE 0.9% 210 ML IV NR; -INFLIXIMAB-DYYB 400 MG in SODIUM CHLORIDE 0.9% 250 ML IV NR
[2021-12-24 09:24] VITALS: RESP 16; TEMP 98.2
[2021-12-24 10:53] VITALS: BP 121/52; PULSE 71
== END ==
LOC: PROCWHC3 08:48
PROVIDERS: ATTEND Internal Medicine Gastroenterology
DX: K51.90 Ulcerative colitis, unspecified, without complications (principal); Z88.1 Allergy status to other antibiotic agents; Z88.8 Allergy status to other drugs, medicaments and biological substances; Z87.891 Personal history of nicotine dependence
CPT/HCPCS: 96413; 96415; Q5103

== ENCOUNTER → 2022-06-18 | Outpatient (CLI) | payer MEDICARE, OTHER ==
[2022-06-18 09:51] VITALS: RESP 16; TEMP 99
[2022-06-18 11:16] VITALS: BP 133/78; PULSE 66
== END ==
LOC: PROCWHC3 09:04
PROVIDERS: ATTEND Internal Medicine Gastroenterology
DX: K51.90 Ulcerative colitis, unspecified, without complications (principal); Z88.8 Allergy status to other drugs, medicaments and biological substances; Z88.1 Allergy status to other antibiotic agents; Z87.891 Personal history of nicotine dependence
CPT/HCPCS: 96413; 96415; Q5103

== ENCOUNTER → 2022-08-13 | Outpatient (CLI) | payer MEDICARE, OTHER ==
[2022-08-13 09:01] VITALS: TEMP 98.5
[2022-08-13 09:28] VITALS: RESP 16
[2022-08-13 10:25] VITALS: BP 101/64; PULSE 61
== END ==
LOC: PROCWHC3 08:51
PROVIDERS: ATTEND Internal Medicine Gastroenterology
DX: K51.90 Ulcerative colitis, unspecified, without complications (principal)
CPT/HCPCS: 96413; 96415; Q5103

== ENCOUNTER → 2022-10-08 | Outpatient (CLI) | payer MEDICARE, OTHER ==
[2022-10-08 09:10] VITALS: RESP 16; TEMP 97.8
[2022-10-08 10:31] VITALS: BP 115/74; PULSE 61
== END ==
LOC: PROCWHC3 08:46
PROVIDERS: ATTEND Internal Medicine Gastroenterology
DX: K51.90 Ulcerative colitis, unspecified, without complications (principal); Z88.1 Allergy status to other antibiotic agents
CPT/HCPCS: 96413; Q5103; 96415

== ENCOUNTER → 2022-12-03 | Outpatient (CLI) | payer MEDICARE, OTHER ==
[2022-12-03 09:15] VITALS: RESP 15; TEMP 98.2
[2022-12-03 10:56] VITALS: BP 108/64; PULSE 60
== END ==
LOC: PROCWHC3 08:46
PROVIDERS: ATTEND Internal Medicine Gastroenterology
DX: K51.90 Ulcerative colitis, unspecified, without complications (principal); Z88.1 Allergy status to other antibiotic agents
CPT/HCPCS: 96413; 96415; Q5103

== ENCOUNTER → 2023-01-28 | Outpatient (CLI) | payer MEDICARE, OTHER ==
[2023-01-28 09:13] VITALS: TEMP 98.1
[2023-01-28 10:54] VITALS: BP 124/71; PULSE 59; RESP 16
== END ==
LOC: PROCWHC3 08:47
PROVIDERS: ATTEND Internal Medicine Gastroenterology
DX: K51.90 Ulcerative colitis, unspecified, without complications (principal); Z88.1 Allergy status to other antibiotic agents
CPT/HCPCS: 96413; 96415; Q5103

== ENCOUNTER → 2023-05-25 | Outpatient (CLI) | payer MEDICARE, OTHER ==
[2023-05-25] MEDS: SODIUM CHLORIDE 0.9% 500 ML 500 ML in EMPTY BAG 1 BAG IV PRN (09:58)
[2023-05-25] MEDS: INFLIXIMAB-DYYB 400 MG in SODIUM CHLORIDE 0.9% 210 ML IV NR (10:10)
[2023-05-25 10:28] VITALS: RESP 16; TEMP 97.8
[2023-05-25 11:49] VITALS: BP 133/68; PULSE 64
== END ==
LOC: PROCWHC3 09:37
PROVIDERS: ATTEND Internal Medicine Gastroenterology
DX: K51.90 Ulcerative colitis, unspecified, without complications (principal); Z88.1 Allergy status to other antibiotic agents
CPT/HCPCS: 96413; 96415; Q5103

== ENCOUNTER → 2023-07-20 | Outpatient (CLI) | payer MEDICARE, OTHER ==
[2023-07-20 08:58] VITALS: TEMP 98
[2023-07-20] MEDS: SODIUM CHLORIDE 0.9% 500 ML 500 ML in EMPTY BAG 1 BAG IV PRN (09:14)
[2023-07-20] MEDS: INFLIXIMAB-DYYB 400 MG in SODIUM CHLORIDE 0.9% 210 ML IV NR (09:23)
[2023-07-20 09:57] VITALS: PULSE 65
[2023-07-20 10:31] VITALS: BP 106/66; RESP 16
== END ==
LOC: PROCWHC3 08:51
PROVIDERS: ATTEND Internal Medicine Gastroenterology
DX: K51.90 Ulcerative colitis, unspecified, without complications (principal); Z88.1 Allergy status to other antibiotic agents
CPT/HCPCS: 96413; 96415; Q5103

== ENCOUNTER → 2023-09-14 | Outpatient (CLI) | payer MEDICARE, OTHER ==
[2023-09-14 09:18] VITALS: TEMP 97.7
[2023-09-14] MEDS: SODIUM CHLORIDE 0.9% 500 ML 500 ML in EMPTY BAG 1 BAG IV PRN (09:20)
[2023-09-14] MEDS: INFLIXIMAB-DYYB 400 MG in SODIUM CHLORIDE 0.9% 210 ML IV NR (09:53)
[2023-09-14 10:40] VITALS: RESP 14
[2023-09-14 11:03] VITALS: BP 104/56; PULSE 55
== END ==
LOC: PROCWHC3 08:51
PROVIDERS: ATTEND Internal Medicine Gastroenterology
DX: K51.90 Ulcerative colitis, unspecified, without complications (principal); Z88.1 Allergy status to other antibiotic agents
CPT/HCPCS: 96413; 96415; Q5103

== ENCOUNTER → 2023-11-09 | Outpatient (CLI) | payer MEDICARE, OTHER ==
[2023-11-09 12:38] LABS: African American GFR (CKD) >90 (>60 ml/min/1.73 sqM); Blood Urea Nitrogen 17 mg/dL (7-17); Non-African American GFR(CKD) 86 (>60 ml/min/1.73 sqM)
--- NOTE | 2023-11-10 18:04 | CT ---
EXAMINATION TYPE: CT angio chest DATE OF EXAM: 11/09/2023 COMPARISON: none. HISTORY: Dyspnea, no known respiratory issues CT DLP: 255.50 mGycm CONTRAST: CT chest with contrast and 3D reconstruction with MIP imaging is performed with IV Contrast, patient injected with 100 mL of Isovue 370. Contrast-enhanced CT of the chest was performed through the course of the pulmonary arteries with vida g and mediastinal window settings submitted. 3D reconstruction with MIP imaging was also performed. PULMONARY ARTERIES: Prominence of the pulmonary arterial hypertension. The pulmonary arteries and the ir major tributaries are patent. I do not see evidence for sizable filling defect to suggest pulmona ry embolic process. LUNGS: The lungs are clear and free of infiltrate. No evidence for atelectasis. No pulmonary nodule or mass is detected. No pleural effusion. MEDIASTINUM: Thoracic aorta is of normal caliber,however, evaluation is limited given timing of the contrast bolus. If there is concern for thoracic aortic pathology consider DORIE. Correlate clinicall y . The heart is not enlarged. No evidence for mediastinal mass. No mediastinal lymph nodes greater than 1cm. HILAR STRUCTURES: No evidence for mass. No hilar lymph nodes greater than 1 cm. UPPER ABDOMEN: No significant abnormality is seen. IMPRESSION: 1. No evidence for Pulmonary embolism at this time. 2. Correlate for pulmonary arterial hypertension. [facility], , 11/10/2023 6:02 PM
== END | disposition home or self-care (01) ==
LOC: RADCTMAIN 11:39
PROVIDERS: ATTEND Internal Medicine Critical Care Medicine
DX: R06.09 Other forms of dyspnea
CPT/HCPCS: 36415; 71275; 82565; 84520

== ENCOUNTER → 2023-11-11 | Outpatient (CLI) | payer MEDICARE, OTHER ==
[2023-11-11 09:40] VITALS: RESP 16; TEMP 98.4
[2023-11-11] MEDS: SODIUM CHLORIDE 0.9% 500 ML 500 ML in EMPTY BAG 1 BAG IV PRN (09:41)
[2023-11-11] MEDS: INFLIXIMAB-DYYB 400 MG in SODIUM CHLORIDE 0.9% 210 ML IV NR (09:54)
[2023-11-11 10:55] VITALS: BP 111/68; PULSE 80
== END ==
LOC: PROCWHC3 09:14
PROVIDERS: ATTEND Obstetrics & Gynecology Gynecologic Oncology
DX: K51.90 Ulcerative colitis, unspecified, without complications (principal); Z88.1 Allergy status to other antibiotic agents
CPT/HCPCS: 96413; 96415; Q5103

== ENCOUNTER → 2024-01-04 | Outpatient (CLI) | payer MEDICARE, OTHER ==
[~2024-01-04] MED LIST changes: -INFLIXIMAB-DYYB 400 MG in SODIUM CHLORIDE 0.9% 210 ML IV NR; +SODIUM CHLORIDE 0.9% 250 ML in EMPTY BAG 1 BAG IV PRN; -SODIUM CHLORIDE 0.9% 500 ML 500 ML in EMPTY BAG 1 BAG IV PRN
[2024-01-04 09:12] VITALS: RESP 16; TEMP 97.9
[2024-01-04] MEDS: SODIUM CHLORIDE 0.9% 500 ML 500 ML in EMPTY BAG 1 BAG IV PRN (09:29)
[2024-01-04] MEDS: INFLIXIMAB-DYYB 400 MG in SODIUM CHLORIDE 0.9% 210 ML IV NR (09:38)
[2024-01-04 10:44] VITALS: BP 89/54; PULSE 59
== END ==
LOC: PROCWHC3 08:57
PROVIDERS: ATTEND Internal Medicine Hematology & Oncology
DX: K51.90 Ulcerative colitis, unspecified, without complications (principal); Z88.1 Allergy status to other antibiotic agents
CPT/HCPCS: 96413; 96415; Q5103

== ENCOUNTER → 2024-06-20 | Outpatient (CLI) | payer MEDICARE, OTHER ==
[2024-06-20] MEDS: SODIUM CHLORIDE 0.9% 500 ML 500 ML in EMPTY BAG 1 BAG IV PRN (10:05)
[2024-06-20 10:09] VITALS: RESP 16; TEMP 98.4
[2024-06-20] MEDS: INFLIXIMAB-DYYB 400 MG in SODIUM CHLORIDE 0.9% 210 ML IV NR (10:35)
[2024-06-20 11:35] VITALS: BP 112/70; PULSE 84
== END ==
LOC: PROCWHC3 09:24
PROVIDERS: ATTEND Internal Medicine Gastroenterology
DX: K51.90 Ulcerative colitis, unspecified, without complications (principal); Z88.1 Allergy status to other antibiotic agents
CPT/HCPCS: 96413; 96415; Q5103